=== PATIENT | female | born 1945 | race Caucasian/White ===

== ENCOUNTER 2024-01-13 20:34 | Inpatient (IN) | payer MEDICARE, OTHER, SELFPAY ==
[2024-01-13] VITALS (23 sets, daily range): BP systolic 51–140; BP diastolic 37–99; BMI 30.1
[2024-01-13 17:10] LABS: % Basophils 0.6 % (0-2); % Eosinophils 1.8 % (0-6); % Immature Granulocytes 0.3 % (0-0.5); % Lymphocytes 15.4 % (20.5-51.1); % Neutrophils 74.9 % (42.2-75.2); Absolute Basophils 0.1 10^3/uL (0-0.2); Absolute Eosinophils 0.2 10^3/uL (0-0.7); Absolute Monocytes 0.9 10^3/uL (0.1-0.6); Absolute Neutrophils 9.7 10^3/uL (1.4-6.5); Hematocrit 44.6 % (37.0-47.0); Hemoglobin 14.8 g/dL (12.0-16.0); Mean Corp Hgb Conc. 33.2 g/dL (33.0-37.0); Mean Corpuscular Hgb 30.1 pg (27.0-31.0); Mean Corpuscular Volume 90.8 fL (81.0-99.0); Mean Platelet Volume 9.3 fL (7.4-10.4); Nucleated Red Blood Cells % 0 %; Platelet Count 287 10^3/uL (130-400); Red Blood Cell Count 4.91 10^6/uL (4.20-5.40); Red Cell Dist. Width 12.4 % (11.5-14.5)
--- NOTE | 2024-01-13 17:10 | ED.GENMED ---
History of Present Illness
<CARY Love Jr. Last Filed: 01/13/24 20:36>
General
Chief Complaint: Weakness
Source: patient and family
Exam Limitations: none
Time Seen by Provider: 01/13/24 16:27
Nursing documentation reviewed up to this point in time: agreed with
History of Present Illness
History of Present Illness:
78-year-old female past Parkinson's seizures stroke paroxysmal A-fib, CHF presenting to the emergency department today with concerns of fatigue generalized weakness worsening over the past week but specifically worsening over the past day or so also
had some chills today and a cold sweat denies any specific fevers. Apparently was around someone who had COVID 1 week ago as well. Denies any significant upper respiratory symptoms did have some phlegm but she claims that this is chronic for her.
Past History
<CARY Love Jr. Last Filed: 01/13/24 20:36>
Past History
ED Past Medical History: Arrthythmia, HTN, Other (non-compliance w/ med- took another person's thyroid med), Other ('Parkinson's') and Other (Seizure D/O)
ED Past Surgical History: Cardiac (R carotid endarterectomy, mitral valve replacement) and Gynecological
Social History
Tobacco: Non-smoker
Alcohol: None
Drug: None
Personal:
Living: with family
Employment: Employed
Family History
Family History: Other (reviewed and non-contributory)
Review of Systems
<CARY Love Jr. Last Filed: 01/13/24 20:36>
Review of Systems
Allergies reviewed?: Yes
All Other Systems: ROS reviewed and negative except as documented in HPI and ROS
Phy Exam
<CARY Love Jr. Last Filed: 01/13/24 20:36>
Physical Exam
Physical Exam:
GENERAL: Alert , in no apparent distress
EYE: pupils equal and reactive
NECK: Supple, no significant adenopathy.
ENT: o/p clr, mmm.
CARDIAC: Tachycardic rate irregular rhythm irregularly irregular
LUNGS: Clear breath sounds bilaterally, no acute respiratory distress, no wheezes/rales/rhonchi
ABDOMEN: Soft, without focal tenderness, no r/g, no cvat
NEUROLOGICAL: Alert and oriented, no focal neuro deficits
SKIN: Warm and dry, skin intact.
MUSCULOSKELETAL: No edema, well perfused.
PSYCH: Normal and appropriate interaction.
Course
<Filippo Nice Jr., CARY - Last Filed: 01/13/24 20:36>
Orders/Labs/Results
Orders:
Orders
01/13/24 16:14
ECG [Electrocardiogram (*1)] Urgent
Reason for Study: Tachycardia
EKG- Treatment ONCE
01/13/24 16:43
Levetiracetam Injectable [Keppra] 3,000 mg .ROUTE .STK-MED ONE
01/13/24 16:54
Cardiac Monitoring- Treatment ONCE
0.9% Sodium Chloride 250 ml [Nss] 250 ml IV BOLUS
CR Chest Portable - 1 View Urgent
Comment:
Reason For Exam: palps fever cough
Reason Study Needs to be Portable: Patient Unstable
01/13/24 16:59
Complete Blood Count/With Diff Urgent
Comprehensive Metabolic Panel Urgent
Magnesium Urgent
NT-proBNP Urgent
TSH Urgent
Troponin I Urgent
01/13/24 17:37
Propofol [Diprivan] 20 ml .ROUTE .STK-MED
01/13/24 18:36
COVID-19 Antigen Urgent
Source: Nasal Swab
Urinalysis Reflex To Culture Urgent
Date Specimen was Collected: 01/13/24
Time Specimen was Collected: 18:32
Urine Microscopic Reflex Cult Urgent
Influenza A+B Rapid Molecular Urgent
VERONICA Source: Nasal Swab
Specimen Description:
Urine Culture Urgent
VERONICA Source: U
Specimen Description:
Date Specimen was Collected: 01/13/24
Time Specimen was Collected: 18:32
01/13/24 19:07
Metoprolol [Lopressor] 5 mg IV NOW STA
01/13/24 20:18
Amiodarone [Cordarone] 150 mg Dextrose 5%/Water 100 ml [D5w] 100 ml IV NOW
01/13/24 20:20
Admit/Transfer Patient As Directed
Co-Sign Provider:
Level of Care: Inpatient admission
Assign to:: IMU- Intermediate Care
Physician / Group: htay
Diagnosis: fast AF, MARCELA, Hypokalemia , Hypotension
Reason for Hospitalization: fast AF, MARCELA, Hypokalemia , Hypotension
Expected length of stay greater than two midnights?: Yes
ELOS- Estimated Length of Stay in days: 5
I certify the patient meets the requirements for IP care: Yes
01/13/24 20:25
Code Status As Directed
Resuscitation Status: Full Code
01/13/24 20:30
Amiodarone [Cordarone] 900 mg DEXTROSE 5% PVC-free BAG [D5W PVC-free BAG] 500 ml IV PER PROTOCOL
Initial Dose in mg/min:: 1
Duration of initial dose (hours):: 6
Subsequent dose in mg/min:: 0.5
Duration of subsequent dose (hours):: 18
Maximum dose in mg/min:: 1
Hold and notify provider if:: Heart rate < 60 BPM or SBP < 90 mmHg or MAP < 60 mmHg
01/14/24 08:00
Potassium Citrate [Urocit-K] 20 meq PO DAILY
Abnormal Lab Results
01/13/24 01/13/24
16:59 18:36
WBC 13.0 H 10^3/uL
(4.8-10.8)
Absolute Neuts (auto) 9.7 H 10^3/uL
(1.4-6.5)
Absolute Monos (auto) 0.9 H 10^3/uL
(0.1-0.6)
Lymphocytes % 15.4 L %
(20.5-51.1)
Potassium 3.2 L mmol/L
(3.5-5.1)
Chloride 82 L mmol/L
(98-107)
Carbon Dioxide 35 H mmol/L
(22-30)
BUN 44 H mg/dl
(7-17)
Creatinine 1.3 H mg/dL
(0.6-1.0)
Glucose 137 H mg/dl
(70-99)
Calcium 10.6 H mg/dl
(8.4-10.2)
Total Protein 8.5 H g/dl
(6.3-8.2)
Albumin 5.2 H g/dl
(3.5-5.0)
Urine Ketones Trace A
(Negative)
Ur Occult Blood Reflex 1+ A
(Negative)
Urine Bilirubin 1+ A
(Negative)
Leukocyte Esterase Rfl 2+ A
(Negative)
01/13/24 16:59
01/13/24 16:59
Vital Signs
Initial and Last Documented VS:
Initial Vital Signs
Temp Pulse Resp BP Pulse Ox
97.8 F 148 20 95/62 93
01/13/24 16:10 01/13/24 16:10 01/13/24 16:10 01/13/24 16:10 01/13/24 16:10
Last Documented Vital Signs
Temp Pulse Resp BP Pulse Ox
97.9 F 147 17 97/78 96
01/13/24 18:55 01/13/24 18:40 01/13/24 18:40 01/13/24 18:40 01/13/24 18:40
<Drew Pancho Cardenas, DO - Last Filed: 01/13/24 19:00>
Orders/Labs/Results
Orders:
Orders
01/13/24 16:14
ECG [Electrocardiogram (*1)] Urgent
Reason for Study: Tachycardia
EKG- Treatment ONCE
01/13/24 16:43
Levetiracetam Injectable [Keppra] 3,000 mg .ROUTE .STK-MED ONE
01/13/24 16:54
Cardiac Monitoring- Treatment ONCE
0.9% Sodium Chloride 250 ml [Nss] 250 ml IV BOLUS
CR Chest Portable - 1 View Urgent
Comment:
Reason For Exam: palps fever cough
Reason Study Needs to be Portable: Patient Unstable
01/13/24 16:59
Complete Blood Count/With Diff Urgent
Comprehensive Metabolic Panel Urgent
Magnesium Urgent
NT-proBNP Urgent
TSH Urgent
Troponin I Urgent
01/13/24 17:37
Propofol [Diprivan] 20 ml .ROUTE .STK-MED
01/13/24 18:36
COVID-19 Antigen Urgent
Source: Nasal Swab
Urinalysis Reflex To Culture Urgent
Date Specimen was Collected: 01/13/24
Time Specimen was Collected: 18:32
Urine Microscopic Reflex Cult Urgent
Influenza A+B Rapid Molecular Urgent
VERONICA Source: Nasal Swab
Specimen Description:
Urine Culture Urgent
VERONICA Source: U
Specimen Description:
Date Specimen was Collected: 01/13/24
Time Specimen was Collected: 18:32
01/13/24 19:07
Metoprolol [Lopressor] 5 mg IV NOW STA
01/13/24 20:18
Amiodarone [Cordarone] 150 mg Dextrose 5%/Water 100 ml [D5w] 100 ml IV NOW
01/13/24 20:20
Admit/Transfer Patient As Directed
Co-Sign Provider:
Level of Care: Inpatient admission
Assign to:: IMU- Intermediate Care
Physician / Group: htay
Diagnosis: fast AF, MARCELA, Hypokalemia , Hypotension
Reason for Hospitalization: fast AF, MARCELA, Hypokalemia , Hypotension
Expected length of stay greater than two midnights?: Yes
ELOS- Estimated Length of Stay in days: 5
I certify the patient meets the requirements for IP care: Yes
01/13/24 20:25
Code Status As Directed
Resuscitation Status: Full Code
01/13/24 20:30
Amiodarone [Cordarone] 900 mg DEXTROSE 5% PVC-free BAG [D5W PVC-free BAG] 500 ml IV PER PROTOCOL
Initial Dose in mg/min:: 1
Duration of initial dose (hours):: 6
Subsequent dose in mg/min:: 0.5
Duration of subsequent dose (hours):: 18
Maximum dose in mg/min:: 1
Hold and notify provider if:: Heart rate < 60 BPM or SBP < 90 mmHg or MAP < 60 mmHg
01/14/24 08:00
Potassium Citrate [Urocit-K] 20 meq PO DAILY
Abnormal Lab Results
01/13/24 01/13/24
16:59 18:36
WBC 13.0 H 10^3/uL
(4.8-10.8)
Absolute Neuts (auto) 9.7 H 10^3/uL
(1.4-6.5)
Absolute Monos (auto) 0.9 H 10^3/uL
(0.1-0.6)
Lymphocytes % 15.4 L %
(20.5-51.1)
Potassium 3.2 L mmol/L
(3.5-5.1)
Chloride 82 L mmol/L
(98-107)
Carbon Dioxide 35 H mmol/L
(22-30)
BUN 44 H mg/dl
(7-17)
Creatinine 1.3 H mg/dL
(0.6-1.0)
Glucose 137 H mg/dl
(70-99)
Calcium 10.6 H mg/dl
(8.4-10.2)
Total Protein 8.5 H g/dl
(6.3-8.2)
Albumin 5.2 H g/dl
(3.5-5.0)
Urine Ketones Trace A
(Negative)
Ur Occult Blood Reflex 1+ A
(Negative)
Urine Bilirubin 1+ A
(Negative)
Leukocyte Esterase Rfl 2+ A
(Negative)
01/13/24 16:59
01/13/24 16:59
Vital Signs
Initial and Last Documented VS:
Initial Vital Signs
Temp Pulse Resp BP Pulse Ox
97.8 F 148 20 95/62 93
01/13/24 16:10 01/13/24 16:10 01/13/24 16:10 01/13/24 16:10 01/13/24 16:10
Last Documented Vital Signs
Temp Pulse Resp BP Pulse Ox
97.9 F 147 17 97/78 96
01/13/24 18:55 01/13/24 18:40 01/13/24 18:40 01/13/24 18:40 01/13/24 18:40
Procedures
<Filippo Nice Jr., PA-C - Last Filed: 01/13/24 20:36>
Cardioversion
Indication:: Afib
Performed by:: Myself Dr. Sagastume
Synchronized?: Yes
Energy Used: 200 joules
Number of attempts: 2
Successful?: No
Complications: none
ASA Risk Score: Class III
Any reaction or bad outcome to prior sedation/anesthesia?: No history of a reaction
Sedation level to be attained: moderate
Chart and allergies reviewed: Yes
Patient reassessed prior to sedation: Yes
Time out completed at (validating right patient & procedure): 18:14
History of difficult intubation: No
Airway free of obstruction: Yes
Patient has a gag reflex: Yes
Patient is able to open mouth: Yes
Patient has no dentures: Yes
Patient has no loose teeth: Yes
Medication administered by Provider during Moderate Sedation: IV Propofol (mg)
Total dose administered: 30
Time drug administered: 18:15
Start Time: 18:14
Stop Time: 18:25
<Filippo Nice Jr., PA-C - Last Filed: 01/13/24 20:36>
MDM/Problems Addressed
MDM/Problems Addressed:
78-year-old female presenting to the emergency department today with concerns of fatigue generalized weakness tachycardia intermittent over the past few days but specifically worsened today. Patient found to be A-fib with RVR. Blood pressure
slightly low but she claims to have chronically low blood pressure heart rate in the 130s to 150s. Afebrile speaking full sentences in no obvious distress. No signs of clinical fluid overload was given some fluids here. Heart rate still
significantly elevated blood pressure still in the 90s systolic considering this cardioversion was attempted to attempt to 200 J without lasting conversion. Initial shock had a brief interruption of the A-fib but quickly went back into atrial
fibrillation within a few seconds. Otherwise here labs showing slightly low potassium of 3.2 low chloride of 82 elevated BUN to creatinine potentially consistent with dehydration was given fluids here felt well throughout ER stay BNP was elevated
to 3000 concern the patient's soft blood pressure and continuous elevation of heart rate Case discussed with cardiology recommending amiodarone. Started on bolus which was given slowly for blood pressure protection and drip started patient admitted
for further monitoring.
<Filippo Nice Jr., PA-C - Last Filed: 01/13/24 20:36>
*Critical Care Note
Total Time (30-74mins, 75-104mins- exclusive of procedures): Not Applicable
ED Attending Note
<Filippo Nice Jr., PA-C - Last Filed: 01/13/24 20:36>
-
Portions of this chart may have been created with voice recognition software.� Occasional wrong word or��sound alike� substitutions may have occurred due to the inherent limitations of voice recognition software.
<Drew Cardenas DO - Last Filed: 01/13/24 19:00>
ED Attending Note
Patient seen and examined by attending physician: Yes
I performed the substantive portion of visit, reviewed & personally made and approve the management plan that is documented in note by myself or NAHUM.: Yes
I performed a history and physical exam of patient and discussed management with resident, I reviewed resident's note and agree with documented findings and plan of care.: Yes
ED Attending Note:
I evaluated the patient at bedside. The patient is found to be in recurrence of rapid atrial fibrillation. We attempted 200 J and cardioversion twice without success. After the first attempted cardioversion, she did have a junctional rhythm with
rates in the 30s for only about 10 seconds but then went back into rapid A-fib.
Discharge Plan
Departure
Patient Disposition: Admit
Date of Disposition: 01/13/24
Time of Disposition: 20:34
Admit to: Med/Surg
Admit to doctor: Sidneyy
Presentation/result/management discussed w/ accepting MD/DO: Hospitalist
Patient with high blood pressure during this ER visit?: No
Condition: Good
Covid-19: Not Applicable
Discharge Problem:
Atrial fibrillation with RVR
Prescriptions:
No Action
clonazepam 1 MG tablet
2 mg PO HS
omeprazole 40 MG capsule,delayed release(DR/EC)
40 mg PO DAILY@1200
paroxetine HCl 30 MG tablet
30 mg PO DAILY
levothyroxine 112 MCG tablet
112 mcg PO DAILY
oxycodone 5 MG tablet
5 mg PO TID
levocetirizine [Xyzal] 5 MG tablet
5 mg PO DAILY
gabapentin 300 MG/6 ML solution
300 mg PO TID
ascorbic acid (vitamin C) 500 MG capsule
500 mg PO DAILY
L.acidoph, paracasei,B. lactis 1 EACH capsule
250 mg PO DAILY
potassium chloride 20 MEQ tablet,ER particles/crystals
40 meq PO [id number]
Patient Comments:
12/07/22--increased to 40meq bid for 3 days then deceaase there after to 20meq daily
atorvastatin 20 mg tablet
20 mg PO Q48H
torsemide 20 mg Tablet
40 mg PO BID
clonazepam 1 mg Tablet
1 mg PO QPMPRN PRN (Reason: leg pains)
ergocalciferol (vitamin D2) 1,250 mcg (50,000 unit) Capsule
1,250 mcg PO WESA
carbidopa-levodopa 25-100 mg tablet
2 tab PO QID
ropinirole 2 mg tablet extended release 24 hr
2 mg PO BID
Eliquis 5 MG tablet
5 mg PO BID
Rx Instructions:
Restart tonight 08/19
nitrofurantoin monohyd/m-cryst [Macrobid] 100 mg capsule
100 mg PO Q12H 7 Days Qty: 14 0RF
Referrals:
Yessica Martin CRNP [Family Provider] -
Interventions
Interventions:
*Risk Screen - Suicide Last Done: 01/13/24 16:10
*General Assessment Last Done: 01/13/24 16:10
*Neglect/Abuse Screening Last Done: 01/13/24 16:10
ED- Fall Risk Assessment Last Done: 01/13/24 18:31
ED- Cardiac Assessment Last Done: 01/13/24 18:31
ED- Neurological Assessment Last Done: 01/13/24 18:31
ED- Pulmonary Assessment Last Done: 01/13/24 18:31
Discharge Date and Time
Print Language: ANGOLAN
[2024-01-13 17:27] LABS: ALT (SGPT) < 10 U/L (0-35); AST (SGOT) 21 U/L (14-36); Albumin 5.2 g/dl (3.5-5.0); Alkaline Phosphatase 107 U/L (38-126); Blood Urea Nitrogen 44 mg/dl (7-17); Calcium 10.6 mg/dl (8.4-10.2); Carbon Dioxide 35 mmol/L (22-30); Chloride 82 mmol/L (98-107); Glucose 137 mg/dl (70-99); Magnesium 2.1 mg/dl (1.6-2.3); Potassium 3.2 mmol/L (3.5-5.1); Sodium 135 mmol/L (135-145); Total Bilirubin 0.8 mg/dl (0.2-1.3); Total Protein 8.5 g/dl (6.3-8.2); eGFR 42.35
[2024-01-13 17:38] LABS: NT-proBNP 3220 pg/ml; Troponin I < 0.012 ng/ml
[2024-01-13 18:04] LABS: TSH 1.66 uIU/ml (0.47-4.68)
[2024-01-13 18:47] LABS: Urine Albumin Trace (Neg - Trace); Urine Bilirubin 1+ (Negative); Urine Character Slightly Cloudy (Clear); Urine Color Yellow; Urine Glucose Negative (Negative); Urine Ketone Trace (Negative); Urine Leukocyte 2+ (Negative); Urine Nitrite Negative (Negative); Urine Occult Blood 1+ (Negative); Urine Urobilinogen Negative (Neg - 1+)
[2024-01-13 18:57] LABS: COVID-19 Antigen Negative (Negative)
[2024-01-13 19:08] LABS: Urine Red Blood Cell 0-2 /HPF (0-2)
[2024-01-13] MEDS: LOPRESSOR 5 MG IV (19:21)
--- NOTE | 2024-01-13 19:29 | CON.CAR ---
Addendum entered and electronically signed by Richard Goodson MD 01/13/24 19:57:
Patient with lower pressures after administration of Lopressor 5 mg IV. Blood pressure will limit using enough metoprolol to adequately control heart rates.
Discussed with ER who will initiate IV amiodarone bolus followed by drip.
Also patient has a previous history of left subclavian stenosis based on a prior head and neck CTA. Reviewed with the ER who will check bilateral arm pressures to see if there is a significant discrepancy. If there is significant left subclavian
stenosis then would recommend checking blood pressures right arm.
Original Note:
Consultation
Consultation Request
Date/Time Consultation Requested: 01/13/2024 at 645
Date/Time Consultation Performed: 01/13/2024 6:45 PM
Requesting Provider: Emergency department
Performing Provider: Dr. Goodson
Reason for Consultation: A-fib with RVR
Medical History
-
History of Present Illness:
78-year-old woman with a history of atrial fibrillation, prior A-fib ablation, bioprosthetic mitral valve replacement, Parkinson's disease, chronic heart failure with preserved ejection fraction, COPD, carotid artery disease, allergy to Cardizem
(angioedema) who presents with fatigue and elevated heart rate and was noted to have A-fib with RVR. Patient has not been feeling well for the last 3 days tired and fatigued intermittently yesterday they noticed elevated heart rates and then that
was more of a persistent issue when her heart rate was checked today. She says today when she went to walk she broke out in a sweat. No chest pain. Currently without complaints of shortness of breath lightheadedness or dizziness. No fever or
recent illness. She has a grandson that has COVID. Patient tested negative for COVID today in the emergency department.
She has been taking her anticoagulation as prescribed. Emergency department attempted cardioversion apparently on first attempt there were 4 beats of sinus rhythm but then patient appeared to go right back in A-fib and on second attempt there was
no evidence of sinus rhythm. Patient now remains in A-fib with RVR. Initially there were some lower blood pressures recorded but currently systolic blood pressure 120.
In further discussion with the patient she had been on amiodarone after surgery but then requested to go off of it just because her had been on the medication and she did not like the idea of it. However she did not have any side effects.
On review of systems she had an increase in weight of about 3 pounds felt she was retaining fluid and took a dose of metolazone 2 days ago.
Past medical history
Bioprosthetic mitral valve replacement
A-fib
A-fib ablation 05/2020
Heart failure with preserved ejection fraction
Parkinson's
Seizures hypothyroidism GERD COPD
Carotid artery disease and right CEA 2018
History of temporal arteritis
Left subclavian stenosis. Weblike stenosis proximal left subclavian 50 to 75% on previous head neck CTA 2018
Social history lives with nurse. Son is at bedside
Family history father had a cerebral aneurysm also aunts and uncles with brain aneurysms.
Allergies / Home Medications
Allergy/AdvReac Type Severity Reaction Status Date / Time
adhesive tape Allergy Rash Verified 01/13/24 16:10
aspirin Allergy Hives Verified 01/13/24 16:10
[place] Containing P Allergy Hives Verified 01/13/24 16:10
*RETIRED-04/11/12
[[place] Containing Products]
diltiazem HCl [From Cardizem] Allergy ANGIOEDEMA Verified 01/13/24 16:10
latex Allergy Rash Verified 01/13/24 16:10
oxycodone [From Percocet] Allergy Hives Verified 01/13/24 16:10
silver Allergy hives,itchi Verified 01/13/24 16:10
ng,blisters
simvastatin [From Zocor] Allergy SEVERE Verified 01/13/24 16:10
MUSCLE
CRAMPING
Sulfa (Sulfonamide Allergy hives,itching, Verified 01/13/24 16:10
Antibiotics) blisters
�Medication �Instructions �Recorded �Confirmed �Type
L.acidoph, paracasei,B. lactis 10 250 mg PO DAILY Supplement 08/19/20 12/07/22 History
billion cell capsule
ascorbic acid (vitamin C) 500 mg 500 mg PO DAILY Supplement 08/19/20 12/07/22 History
capsule
clonazepam 1 mg tablet 2 mg PO HS Mental Health/Anxiety 08/19/20 12/07/22 History
gabapentin 300 mg/6 mL (6 mL) oral 300 mg PO TID Neurological 08/19/20 12/07/22 History
solution Condition
levocetirizine 5 mg tablet (Xyzal) 5 mg PO DAILY Allergies 08/19/20 12/07/22 History
levothyroxine 112 mcg tablet 112 mcg PO DAILY Thyroid 08/19/20 12/07/22 History
omeprazole 40 mg capsule,delayed 40 mg PO DAILY@1200 08/19/20 12/07/22 History
release Gastrointestinal issue
oxycodone 5 mg tablet 5 mg PO TID Pain 08/19/20 12/07/22 History
paroxetine HCl 30 mg tablet 30 mg PO DAILY Depression 08/19/20 12/07/22 History
potassium chloride 20 mEq 40 meq PO [id number] Electrolyte 11/26/20 12/07/22 History
tablet,extended release(part/cryst) Repletion
apixaban 5 mg tablet (Eliquis) 5 mg PO BID Blood clot 12/07/22 12/07/22 History
prevention/tx
atorvastatin 20 mg tablet 20 mg PO Q48H High cholesterol 12/07/22 12/07/22 History
carbidopa 25 mg-levodopa 100 mg 2 tab PO QID Neurological Condition 12/07/22 12/07/22 History
tablet
clonazepam 1 mg tablet 1 mg PO QPMPRN PRN leg pains 12/07/22 12/07/22 History
ergocalciferol (vitamin D2) 1,250 1,250 mcg PO WESA Supplement 12/07/22 12/07/22 History
mcg (50,000 unit) capsule
ropinirole 2 mg tablet,extended 2 mg PO BID Neurological Condition 12/07/22 12/07/22 History
release 24 hr
torsemide 20 mg tablet 40 mg PO BID Fluid 12/07/22 12/07/22 History
retention/Swelling
nitrofurantoin 100 mg PO Q12H 7 days #14 caps 02/18/23 Rx
monohydrate/macrocrystals 100 mg
capsule (Macrobid)
Review of Systems
-
All other systems: Negative unless noted
Physical Exam
Vital Signs
Temp Pulse Resp BP Pulse Ox
97.9 F 147 17 97/78 96
01/13/24 18:55 01/13/24 18:40 01/13/24 18:40 01/13/24 18:40 01/13/24 18:40
Lab Results
01/13/24 16:59
01/13/24 16:59
Troponin I < 0.012 ng/ml 01/13/24 16:59
Nxq-[id number]-Fcfdjbwdqle Pept 3220 pg/ml 01/13/24 16:59
Physical Exam
General: Well Developed and Well Nourished
HEENT: Normocephalic and Anicteric
Respiratory: Other (No wheezes or rhonchi)
Cardiac: Other (Tachycardic and irregular)
GI: Soft, Non Tender and Other (Mildly distended no mass detected positive bowel sounds)
Musculoskeletal: No Clubbing
Skin: Warm and Rash
Neuro: Awake, Alert, Oriented and Other (Parkinson's)
Hematologic/Lymphatic: No Lymphadenopathy
Psych: Calm
Impression / Plan
-
A-fib with RVR.
-Prior history of A-fib including ablation in 2019
-Cannot take IV Cardizem due to history of angioedema
-Consistently taking anticoagulation
-Failed attempt at cardioversion in ER.
-Continue anticoagulation with Eliquis
-Give IV Lopressor for additional heart rate control. If blood pressure tolerates then can use oral metoprolol.
-If blood pressure limits use of metoprolol then would use IV amiodarone.
-Update echo this admission
Heart failure with preserved ejection fraction
-patient recently had weight gain and took additional metolazone. This may be cause for rising creatinine.
-Check chest x-ray
-Monitor weights
Mechanical MVR. Stable by last echo. Reassess with echo.
.
MARCELA. Creatinine 1.3. Recently had increased diuresis with the addition of metolazone.
-Monitor with treatment noted above
Fatigue. May be related to development of A-fib. Unclear if something else had developed causing her to be symptomatic prior to development of A-fib. Will defer to hospitalist regarding evaluation for other causes of fatigue.
-Rule out UTI
.
Parkinson's disease. Continue outpatient treatment.
Echo 12/21/2022
Technically difficult study - Definity recommended for future studies.
Normal left ventricular size, wall thickness and systolic function.
Bioprosthetic mitral valve.The peak/mean gradients across the valve are 22/8
mmHg.No mitral regurgitation.
Trace tricuspid regurgitation.
Estimated pulmonary artery pressure of 24 mmHg
Compared to prior study of. 12/16/21 no significant change
Data Reviewed
-
EKG: Report Reviewed by me
CT Scan: Report Reviewed by me
MRI: Report Reviewed by me
Medical Tests (Nuc Med, Echo etc): Report Reviewed by me
--- NOTE | 2024-01-13 20:14 | HPS.HSE ---
Addendum entered and electronically signed by Errol Figueroa MD 01/14/24 12:53:
HCT
No acute intracranial abnormality.
Addendum entered and electronically signed by Errol Figueroa MD 01/13/24 23:24:
At ER:
Following Amiodarone bolus transiently unresponsive. No abnormal movements witnessed
SBP was as low as 60 per ER AP
- Non focal exam
- Then spontaneously returned to normal base line MS
Suspect vasovagal syncope due to hypotension
- Holding Amiodarone gtt for now
- To consider IV Dig if necessary
- cont IMU level
- HCT to complete w/u
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
Original Note:
Family Physician
-
Family Physician: Yessica Martin
Chief Complaint
-
fatigue and weakness
History of Present Illness
78F HX HFpEF, Chr AF, HX successful CV, Bioprosthetic mitral valve, hyperthroid seen atER for evaluation of fatigue and genaralized weakness; Noted racing HR.
Medical History
Past Medical History
Past Medical History: Reports Arrhythmia (Chr AF ), CHF (HFpEF ), CVA, HTN, Hypercholesterolemia, Hypothyroidism, Seizures, Psychiatric (depression / anxiety ) and Other (parkinson dz )
Past Surgical History: Reports Other
Additional Past Surgical History:
R carotid endarterectomy, Bioprosthetic mitral valve replacement)
Social History
Tobacco: Non-smoker
Alcohol: None
Drug: None
Personal:
Living: With Family
Family History
Family History: Not pertinent
Allergies / Home Medications
Allergies reflects when Allergies were last updated in [facility].
Home Medications with original date entered in [facility]
Allergy/Medication List:
Allergies
Allergy/AdvReac Type Severity Reaction Status Date / Time
adhesive tape Allergy Rash Verified 01/13/24 16:10
aspirin Allergy Hives Verified 01/13/24 16:10
[place] Containing P Allergy Hives Verified 01/13/24 16:10
*RETIRED-04/11/12
[[place] Containing Products]
diltiazem HCl [From Cardizem] Allergy ANGIOEDEMA Verified 01/13/24 16:10
latex Allergy Rash Verified 01/13/24 16:10
oxycodone [From Percocet] Allergy Hives Verified 01/13/24 16:10
silver Allergy hives,itchi Verified 01/13/24 16:10
ng,blisters
simvastatin [From Zocor] Allergy SEVERE Verified 01/13/24 16:10
MUSCLE
CRAMPING
Sulfa (Sulfonamide Allergy hives,itching, Verified 01/13/24 16:10
Antibiotics) blisters
Home Medications
L.acidoph, paracasei,B. lactis 10 billion cell capsule 250 mg PO DAILY Supplement 08/19/20
ascorbic acid (vitamin C) 500 mg capsule 500 mg PO DAILY Supplement 08/19/20
clonazepam 1 mg tablet 2 mg PO HS Mental Health/Anxiety 08/19/20
gabapentin 300 mg/6 mL (6 mL) oral solution 300 mg PO TID Neurological Condition 08/19/20
levocetirizine 5 mg tablet (Xyzal) 5 mg PO DAILY Allergies 08/19/20
levothyroxine 112 mcg tablet 112 mcg PO DAILY Thyroid 08/19/20
omeprazole 40 mg capsule,delayed release 40 mg PO DAILY@1200 Gastrointestinal issue 08/19/20
oxycodone 5 mg tablet 5 mg PO TID Pain 08/19/20
paroxetine HCl 30 mg tablet 30 mg PO DAILY Depression 08/19/20
potassium chloride 20 mEq tablet,extended release(part/cryst) 40 meq PO [id number] Electrolyte Repletion 11/26/20
apixaban 5 mg tablet (Eliquis) 5 mg PO BID Blood clot prevention/tx 12/07/22
atorvastatin 20 mg tablet 20 mg PO Q48H High cholesterol 12/07/22
carbidopa 25 mg-levodopa 100 mg tablet 2 tab PO QID Neurological Condition 12/07/22
clonazepam 1 mg tablet 1 mg PO QPMPRN PRN leg pains 12/07/22
ergocalciferol (vitamin D2) 1,250 mcg (50,000 unit) capsule 1,250 mcg PO WESA Supplement 12/07/22
ropinirole 2 mg tablet,extended release 24 hr 2 mg PO BID Neurological Condition 12/07/22
torsemide 20 mg tablet 40 mg PO BID Fluid retention/Swelling 12/07/22
nitrofurantoin monohydrate/macrocrystals 100 mg capsule (Macrobid) 100 mg PO Q12H 7 days #14 caps 02/18/23
Review of Systems
-
Constitutional: Reports Weight Loss and Fatigue
EENT: Reports No Symptoms
Respiratory: Reports No Symptoms
Cardiac: Reports Palpitations
Abdomen/GI: Reports No Symptoms
: Reports No Symptoms
Musculoskeletal: Reports No Symptoms
Skin: Reports No Symptoms
Neurological: Reports No Symptoms
Endocrine: Reports No Symptoms
Hematologic/Lymphatic: Reports No Symptoms
Psych: Reports No Symptoms
Physical Exam
Vital Signs
Vital Signs
Temp Pulse Resp BP Pulse Ox
97.9 F 147 17 97/78 96
01/13/24 18:55 01/13/24 18:40 01/13/24 18:40 01/13/24 18:40 01/13/24 18:40
Physical Exam
General: Well Nourished, No Apparent Distress, Comfortable, Conversant and Other (flat facial expression )
HEENT: NormoCephalic, Anicteric and Moist mucous membranes
Respiratory: Clear; No Wheezes, Rales or Rhonchi
Cardiac: S1/S2, Irregular Rhythm and Tachycardia; No JVD
Breast: Deferred by me
GI: Soft, Non Tender, Non Distended and Normal Bowel Sounds
Rectal: Deferred by Provider
Genito-urinary: Deferred by me
Musculoskeletal: No Edema
Skin: Warm and Dry
Neuro: AO x 3
Psych: Calm
Laboratory Results
-
01/13/24 16:59
01/13/24 16:59
Laboratory Results
Total Bilirubin 0.8 mg/dl (0.2-1.3) 01/13/24 16:59
AST 21 U/L (14-36) 01/13/24 16:59
ALT < 10 U/L (0-35) 01/13/24 16:59
Alkaline Phosphatase 107 U/L (38-126) 01/13/24 16:59
Troponin I < 0.012 ng/ml 01/13/24 16:59
Data Reviewed
-
Medical Tests (Nuc Med, Echo, EKG etc): Report Reviewed by me
Lab Data: Labs Reviewed by me
Old Records: Reviewed
Impression/Plan
-
Data
WCC 13
K 3.2
CO2 35
BUN 44
Cr 1.3 - was 0.9 on 01/28/23
NEG TPNI
pBNP 3220 - baseline is 500s to 700s
NEG Covid
12/21/22 ECHO
Technically difficult study - Definity recommended for future studies.
Normal left ventricular size, wall thickness and systolic function.
Bioprosthetic mitral valve.The peak/mean gradients across the valve are 22/8
mmHg.No mitral regurgitation.
Trace tricuspid regurgitation.
Estimated pulmonary artery pressure of 24 mmHg
Compared to prior study of. 12/16/21 no significant change
Last hospitalist admission: 11/09/20 - 11/15/20
P Dxs: acute HFpEF , Persistent AF
ASSESSMENT & PLAN
Pending Rx reconciliation
Fast AF ; Hypotensive with IV Metoprolol 5 mg x1
HX Prx AF since Bioprosthetic mitral valve suregery
Essential HTN; currently hypotensive
- HX successful CV 11/26/20
- ER initiate IV Amiodarone gtt
- on chr Eliquis
- CBC cared consult
HX HFpEF - clinically not in acute HF
Wt 91kg ( 02/18/23) ----> 84.5 kg ( 01/13/24)
- loosing wt
- held Torsemide and held spironolactone
- daily Wt
- await Card eval in AM
MARCELA - cardiorenal syndrome vs. volume depletion
chr alkalosis - contraction alkalosis due to dehydration
Hypokalemia
- held torsemide
- Trend BMP in AM
- await Card evaluation
Hypokalemia
- KCL PO 20 x1 at ER
HX Bioprosthetic mitral valve.
ECHO as above : The peak/mean gradients across the valve are 22/8 mmHg. No mitral regurgitatio
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
11/03/18-CEA for Rt RG
- on Apixaban
- Atorvastatin
Hypothyroid
- TSH
- on LT4
HLD
- on Atorvastatin
Parkinson dz
- on Sinemet
- on Ropinirole
Remote HX Sz - Sz free for past 22 years
HX recurrent UTI
- on prophylaxis Macrobid
Depression/ Anxiety
- 0n chr clonazepam
- on Paroxetine
Chr narcotic dependant pain syndrome
- on Gabapentin 300mg tid
- on Oxycodone 5mg tid
Fatigue and weakness
Reports Contact exposure with Covid
- Neg Covid upon admission
DVT Px: chr Eliquis
Code: Full
IMU
[2024-01-13] MEDS: CORDARONE 103 MG IV (21:17)
[2024-01-13] MEDS: CORDARONE 518 MG IV (21:18)
[2024-01-14] VITALS (20 sets, daily range): BP systolic 80–125; BP diastolic 49–103; BMI 29.8
[2024-01-14] MEDS: REQUIP 2 MG PO ×3 (00:17→21:10)
[2024-01-14] MEDS: KLONOPIN 2 MG PO ×2 (00:18→21:10)
[2024-01-14] MEDS: ROXICODONE 5 MG PO ×3 (00:18→15:04)
[2024-01-14] MEDS: LIPITOR 20 MG PO (00:18)
[2024-01-14] MEDS: SINEMET 25-100 2 TABLET PO ×5 (00:19→21:09)
--- NOTE | 2024-01-14 03:03 | PTCARENOTE ---
Rec'd pt from ED RN with daughter at bedside. Pt AAOx3 with slow, soft speech. HR 90s, BPs soft. Pt c/o chronic pain in R knee, but denies other symptoms at this time. 97% SaO2 on 1L O2. Call pope within reach. Assessment as documented
[2024-01-14] MEDS: SYNTHROID 112 MCG PO (05:26)
[2024-01-14 05:37] LABS: Hematocrit 39.9 % (37.0-47.0); Hemoglobin 13.5 g/dL (12.0-16.0); Mean Corp Hgb Conc. 33.8 g/dL (33.0-37.0); Mean Corpuscular Hgb 30.1 pg (27.0-31.0); Mean Corpuscular Volume 88.9 fL (81.0-99.0); Mean Platelet Volume 9.1 fL (7.4-10.4); Platelet Count 251 10^3/uL (130-400); Red Blood Cell Count 4.49 10^6/uL (4.20-5.40); Red Cell Dist. Width 12.6 % (11.5-14.5); White Blood Cell Count 10.3 10^3/uL (4.8-10.8)
[2024-01-14 06:21] LABS: ALT (SGPT) < 10 U/L (0-35); AST (SGOT) 21 U/L (14-36); Albumin 4.5 g/dl (3.5-5.0); Alkaline Phosphatase 96 U/L (38-126); Blood Urea Nitrogen 43 mg/dl (7-17); Calcium 9.7 mg/dl (8.4-10.2); Carbon Dioxide 39 mmol/L (22-30); Chloride 85 mmol/L (98-107); Estimated Creatinine Clearance 57 ml/min; Glucose 124 mg/dl (70-99); HDL Cholesterol 28 mg/dl; LDL Cholesterol, Calculated 126 mg/dl; Potassium 2.6 mmol/L (3.5-5.1); Sodium 137 mmol/L (135-145); Total Bilirubin 0.9 mg/dl (0.2-1.3); Total Cholesterol 197 mg/dl (50-199); Total Protein 7.4 g/dl (6.3-8.2); Triglyceride 219 mg/dl (10-149); Very Low Density Lipoprotein 43 mg/dl (0-30); eGFR > 60.00
[2024-01-14 06:24] LABS: TSH 0.76 uIU/ml (0.47-4.68)
--- NOTE | 2024-01-14 06:29 | PTCARENOTE ---
Pt with potassium 2.6 this AM, this RN notified DIEUDONNE Mac.
[2024-01-14] MEDS: KCL 40 MEQ PO ×2 (06:35→19:19)
[2024-01-14] MEDS: PAXIL 30 MG PO (08:19)
[2024-01-14] MEDS: ELIQUIS 5 MG PO ×2 (08:19→19:19)
[2024-01-14] MEDS: KCL 260 MEQ IV (08:23)
--- NOTE | 2024-01-14 10:00 | W.PN.HOSP.TC ---
Today's Communication/Plan
-
Monitor rates in IMU
Planned for electrical cardioversion on Tuesday
See below
Assessment / Plan
Assessment / Plan
Physical Exam
General: Not in acute distress
HEENT: Normocephalic
Respiratory: Other (No wheezes or rhonchi)
Cardiac: S1 and S2. Irregular Rhythm
GI: Soft, Non Tender. Positive bowel sounds.
Skin: Warm
Neuro: Awake, Alert, Oriented and Other (Parkinson's)
Psych: Calm

CT Chest PE Study results (as per radiologist's report)
IMPRESSION:
1. No CTA evidence for an acute pulmonary thromboembolism.
2. Mild pneumonitis versus atelectasis in the right lower lobe at the lateral costophrenic sulcus.

A-fib with RVR.
History of A-Fib status post ablation in 2019
Syncope - Vasovagal/Hypotensive in the ER after Amiodarone
Allergy/Angioedema with Cardizem
History of Pleural Effusions
History of Pericardial Effusions
-Intolerant to IV Cardizem due to history of angioedema
-Failed attempt at cardioversion in ER.
-Continue anticoagulation with Eliquis
-Lopressor was stopped due to hypotension
-No Amiodarone for now, as per cardiology, patient had syncope shortly after Amiodarone was given in the ER -- suspected vasovagal, unlikely Amiodarone-induced hypotension
-In the ER, following Amiodarone bolus, patient was transiently unresponsive and hypotensive with SBP in the 60s -- but she spontaneously came back to normal
-Observe patient and allow for elevated rates through the weekend, another attempted electrical cardioversion on 01/16/24 -- discussed this with cardiology
-Update echo this admission
-CT Head showed no acute changes
Heart failure with preserved ejection fraction
-Patient recently had weight gain and took additional metolazone which could have resulted in rising creatinine.
-Monitor weights
Hypokalemia
-Possible side effect of recent Metolazone
-Replaced
-Monitor BMP and replace as needed
MARCELA - Suspected Cardiorenal Syndrome
-Recently had increased diuresis with the addition of metolazone.
-Hold home diuretics for now
-Monitor with treatment noted above
E. coli Bacteriuria
History of UTIs
-Per patient's nurse, she has bladder spasms after she urinates, but denied any UTI-related pain
-Hold any antibiotics at this time
-Monitor vital signs, white blood cell count, and for any new UTI symptoms
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
History of Left Subclavian Stenosis
-Continue Eliquis
-Does patient take statin at home?
-Check bilateral arm pressures to see if there is a significant discrepancy - if there is significant left subclavian stenosis then would recommend checking blood pressures right arm.
Mitral Regurgitation History. Mechanical MVR. Stable by last echo. Reassess with echo.
Bioprosthetic mitral valve?
Hypertension
-Holding antihypertensives due to hypotension
Hypothyroidism
-Continue home Levothyroxine
Hyperlipidemia
-Does patient take statin at home?
Fatigue. May be related to development of A-fib. Unclear if something else had developed causing her to be symptomatic prior to development of A-fib. Will defer to hospitalist regarding evaluation for other causes of fatigue.
-Rule out UTI
.
Parkinson's disease
-Continue outpatient treatment with Sinemet and Ropinirole
Remote History of Seizure - Seizure-free for past 22 years
History of recurrent UTI
- on prophylactic Macrobid
Depression/ Anxiety
- On chronic clonazepam
- On Paroxetine
Chronic narcotic dependant pain syndrome
- on Gabapentin 300mg tid
- on Oxycodone 5mg tid
Fatigue and weakness
Reports Contact exposure with Covid
- Negative Covid upon admission
History of Mass of Left Thigh
HOME MED REC
DVT PPx: Eliquis
Code: Full
Anticipated Discharge: > 48 hours
Subjective/Interval History
-
Date of Service: January 14, 2024
Patient was seen and examined. She reported feeling better than when she came in, she denied any new symptoms or complaints.
Objective Data
-
Labs:
Laboratory Results
01/14/24
05:27
WBC 10.3
Hgb 13.5
Hct 39.9
Plt Count 251
Sodium 137
Potassium 2.6 L*
Chloride 85 L
Carbon Dioxide 39 H
BUN 43 H
Creatinine 0.9
Glucose 124 H
Calcium 9.7
Total Bilirubin 0.9
AST 21
ALT < 10
Alkaline Phosphatase 96
Vital Signs:
Vital Signs
Temp Pulse Resp BP Pulse Ox
97.6 F 85 12 111/68 92
01/14/24 07:27 01/14/24 08:00 01/14/24 08:00 01/14/24 08:00 01/14/24 09:52
I&O
01/13/24 01/14/24 01/15/24
06:59 06:59 06:59
Intake Total 270 / 270
Output Total 650 / 650
Balance -650 / -650 270 / 270
--- NOTE | 2024-01-14 11:18 | PTCARENOTE ---
Patient heart rate is afib, uncontrolled at times. Blood pressure 97/61 map 73. Trace edema on lower extremities. Good appetite, abdomen round. Denying pain when asked. Oral care provided and patient washed. Chair position in bed. Very weak at this
time, fall precautions enforced.
--- NOTE | 2024-01-14 11:46 | W.PN.CD ---
Today's Communication / Plan
-
Continue to monitor rates of atrial fibrillation. No additional changes in medical therapy at this time.
Will plan for electrical cardioversion on Tuesday
Impression / Plan
-
A-fib with RVR.
-Prior history of A-fib including ablation in 2019
-Cannot take IV Cardizem due to history of angioedema
-Consistently taking anticoagulation
-Failed attempt at cardioversion in ER.
-Continue anticoagulation with Eliquis
-IV Lopressor given in ER but then systolic blood pressure was in the 90s so it was discontinued.
-Initially plan was to use IV amiodarone. Patient had an unresponsive episode 2 minutes after starting amiodarone with very brief hypotension reported which spontaneously recovered despite no intervention. Difficult to fully explain the event.
Although IV amiodarone bolus could have lowered the pressure in a patient who already had relatively low blood pressure and caused syncope. However would expect medication induced hypotension to be more persistent and not resolve so quickly without
an intervention. No evidence of an allergic reaction. Of note patient has tolerated amiodarone in the past per her report. No evidence of pee arrhythmia. Telemetry fully reviewed. Possibility of a vagal episode is also a consideration.
Patient has a history of seizures but no evidence that this was the cause either.
-Heart rate is only mildly elevated we will continue to monitor. Patient may have been volume depleted on presentation which contributed to higher rates.
-Update echo this admission
-If patient remains in A-fib then would consider another attempt at cardioversion on 01/16/2024
Heart failure with preserved ejection fraction
-patient recently had weight gain and took additional metolazone. This may be cause for rising creatinine.
-Currently stable with evident evidence of decompensated heart failure.
-Monitor weights
Mechanical MVR. Stable by last echo. Reassess with echo.
.
MARCELA. Creatinine 1.3. Now improved. Recently had increased diuresis with the addition of metolazone as an outpatient which may have contributed.
-Monitor with treatment noted above
Fatigue. Improved.
Parkinson's disease. Continue outpatient treatment.
Echo 12/21/2022
Technically difficult study - Definity recommended for future studies.
Normal left ventricular size, wall thickness and systolic function.
Bioprosthetic mitral valve.The peak/mean gradients across the valve are 22/8
mmHg.No mitral regurgitation.
Trace tricuspid regurgitation.
Estimated pulmonary artery pressure of 24 mmHg
Compared to prior study of. 12/16/21 no significant change
Physical Exam
Vital Signs/Labs
Vital Signs
Temp Pulse Resp BP Pulse Ox
97.6 F 102 18 97/61 99
01/14/24 07:27 01/14/24 11:06 01/14/24 11:06 01/14/24 11:06 01/14/24 11:06
01/13/24 01/14/24 01/15/24
06:59 06:59 06:59
Actual Weight 83.6 kg
01/14/24 05:27
01/14/24 05:27
Magnesium 2.1 mg/dl (1.6-2.3) 01/13/24 16:59
Triglycerides 219 mg/dl (10-149) H 01/14/24 05:27
LDL Cholesterol, Calc 126 mg/dl 01/14/24 05:27
VLDL Cholesterol, Calc 43 mg/dl (0-30) H 01/14/24 05:27
HDL Cholesterol 28 mg/dl 01/14/24 05:27
TSH 0.76 uIU/ml (0.47-4.68) 01/14/24 05:27
01/13/24
16:59
Qcg-Q-Nemadqhitil Pept 3220
LAB Results
01/13/24
16:59
Troponin I < 0.012
Physical Exam
Constitutional: No acute distress
Cardiovascular: Rhythm/rate is irregular
Respiratory: Wheeze Absent and Rhonchi Absent
GI: Soft and Non tender
Neuro/Psych: Alert
Data Reviewed
-
Date of Service: January 14, 2024
Medical Decision Making: Reviewed Test Results
Medical Tests (PFT, Pathology etc): Report Reviewed by me
Labs: Labs Reviewed by me
--- NOTE | 2024-01-14 12:38 | PTCARENOTE ---
Blood pressure dropped to 80/66, map 73. Patient stating that she feels tired. Dr. Goodson notified. Repeat .
--- NOTE | 2024-01-14 14:15 | CM ---
Addendum entered by Liudmila Roberson RN 01/14/24 14:28:
Noting O2 2L. Patient does not have home O2.
Plan watch for any home O2 needs.
Original Note:
Patient with Hx Parkinsons Dz with Dx A-fib with RVR, HF, hypokalemia, MARCELA. Plan CV Mon 01/15.
Met with patient and daughter Navya;
the patient resides at her daughter's 2 story home in a one story in law suite with ramp access.
The patient is independent in ADLs and mostly uses her electric w/c to the bathroom.
She holds onto furniture or uses her RW to ambulate short distances.
Patient had several falls at home about 2 months ago.
The patient has LTC insurance and has a MOTEL FOOD SERVICE SUPERVISOR 4 hrs/day 2 days/week through [employer]. The caregiver hours will be paid by the LTC insurance and increase to 40 hrs/week at the end of January, once family has paid privately for the first 90 days.
DME - RW, electric w/c, manual w/c, transport chair, Purewick external urinary catheter, reachers.
VN - prior [facility]
SNF - prior [facility]
The patient has an Intake Appt with Palliative Care on 01/23/24.
PCP - Yessica Martin
Pharmacy - [facility]
Daughter interested in [facility] referral to [facility] - agree to refer after seen by PT/OT.
Request to Dr Christiansen for PT/OT Evals.
Plan follow up after PT/OT Evals.
[2024-01-14] MEDS: NEURONTIN 300 MG PO ×2 (15:04→19:19)
[2024-01-14] MEDS: PROTONIX 40 MG PO (15:04)
[2024-01-14] MEDS: FEOSOL 325 MG PO (15:04)
[2024-01-14 16:23] LABS: Blood Urea Nitrogen 39 mg/dl (7-17); Calcium 9.7 mg/dl (8.4-10.2); Carbon Dioxide 37 mmol/L (22-30); Chloride 86 mmol/L (98-107); Estimated Creatinine Clearance 73 ml/min; Glucose 147 mg/dl (70-99); Potassium 3.2 mmol/L (3.5-5.1); Sodium 133 mmol/L (135-145); eGFR > 60.00
[2024-01-14] MEDS: KCL 20 MEQ PO ×2 (17:15→22:50)
[2024-01-14] MEDS: OCUVITE SOFTGEL 1 CAP PO (19:19)
--- NOTE | 2024-01-14 21:50 | PTCARENOTE ---
This RN found pt with O2 off with SaO2 90%, slightly forgetful and disoriented to surroundings. This RN replaced O2 with SaO2 improvement to 98%, reoriented pt. Pt knowledgeable about home meds, requests her nighttime meds early bc she is tired and
states that she wants to take xyzal, but is not agreeable to taking zyrtec bc zyrtec makes her feel 'amped up'. Remains in afib, HR sustaining 120s-130s with spikes up to 140s and PVCs. BP stable at this time. HELP DESK SUPPORT SPECIALIST notified of condition and ordered
this RN to draw 23:00 labs now.
[2024-01-14 22:17] LABS: Blood Urea Nitrogen 35 mg/dl (7-17); Calcium 9.4 mg/dl (8.4-10.2); Carbon Dioxide 37 mmol/L (22-30); Chloride 88 mmol/L (98-107); Estimated Creatinine Clearance 73 ml/min; Glucose 176 mg/dl (70-99); Potassium 3.3 mmol/L (3.5-5.1); Sodium 135 mmol/L (135-145); eGFR > 60.00
[2024-01-14] MEDS: LANOXIN 250 MCG PO (23:03)
[2024-01-15] VITALS (31 sets, daily range): BP systolic 70–143; BP diastolic 44–100; PULSE 110–152; O2SAT 95; BMI 30.1
[2024-01-15] MEDS: ZYRTEC PO (00:23)
[2024-01-15] MEDS: SYNTHROID 100 MCG PO (05:06)
[2024-01-15 06:09] LABS: % Basophils 0.6 % (0-2); % Eosinophils 3.8 % (0-6); % Immature Granulocytes 0.3 % (0-0.5); % Lymphocytes 18.9 % (20.5-51.1); % Monocytes 6.1 % (1.7-9.3); % Neutrophils 70.3 % (42.2-75.2); Absolute Basophils 0.1 10^3/uL (0-0.2); Absolute Eosinophils 0.4 10^3/uL (0-0.7); Absolute Lymphocytes 1.8 10^3/uL (1.2-3.4); Absolute Monocytes 0.6 10^3/uL (0.1-0.6); Absolute Neutrophils 6.5 10^3/uL (1.4-6.5); Hematocrit 43.3 % (37.0-47.0); Hemoglobin 13.5 g/dL (12.0-16.0); Mean Corp Hgb Conc. 31.2 g/dL (33.0-37.0); Mean Corpuscular Hgb 29.3 pg (27.0-31.0); Mean Corpuscular Volume 93.9 fL (81.0-99.0); Mean Platelet Volume 9.4 fL (7.4-10.4); Nucleated Red Blood Cells % 0 %; Platelet Count 239 10^3/uL (130-400); Red Blood Cell Count 4.61 10^6/uL (4.20-5.40); Red Cell Dist. Width 12.5 % (11.5-14.5); White Blood Cell Count 9.3 10^3/uL (4.8-10.8)
[2024-01-15 06:12] LABS: Blood Urea Nitrogen 28 mg/dl (7-17); Calcium 9.8 mg/dl (8.4-10.2); Carbon Dioxide 38 mmol/L (22-30); Chloride 91 mmol/L (98-107); Estimated Creatinine Clearance 86 ml/min; Glucose 124 mg/dl (70-99); Magnesium 2.4 mg/dl (1.6-2.3); Sodium 138 mmol/L (135-145); eGFR > 60.00
[2024-01-15] MEDS: ELIQUIS 5 MG PO ×2 (07:54→21:43)
[2024-01-15] MEDS: NEURONTIN 300 MG PO ×3 (07:54→21:44)
[2024-01-15] MEDS: PAXIL 30 MG PO (07:55)
[2024-01-15] MEDS: ROXICODONE 5 MG PO ×3 (07:55→17:45)
[2024-01-15] MEDS: REQUIP 2 MG PO ×2 (07:55→22:59)
[2024-01-15] MEDS: SINEMET 25-100 2 TABLET PO ×4 (07:56→21:44)
[2024-01-15] MEDS: UROCIT-K 20 MEQ PO (08:06)
--- NOTE | 2024-01-15 08:29 | W.PN.CD ---
Today's Communication / Plan
-
Oral amiodarone
Plan for cardioversion tomorrow
Impression / Plan
-
A-fib with RVR.
-Prior history of A-fib including ablation in 2019
-Cannot take IV Cardizem due to history of angioedema
-Consistently taking anticoagulation
-Failed attempt at cardioversion in ER.
-Continue anticoagulation with Eliquis
-IV Lopressor given in ER but then systolic blood pressure was in the 90s so it was discontinued.
-Initially plan was to use IV amiodarone. Patient had an unresponsive episode 2 minutes after starting amiodarone with very brief hypotension reported which spontaneously recovered despite no intervention. Difficult to fully explain the event.
Although IV amiodarone bolus could have lowered the pressure in a patient who already had relatively low blood pressure and caused syncope. However would expect medication induced hypotension to be more persistent and not resolve so quickly without
an intervention. No evidence of an allergic reaction. Of note patient has tolerated amiodarone in the past per her report. No evidence of pee arrhythmia. Telemetry fully reviewed. Possibility of a vagal episode is also a consideration.
Patient has a history of seizures but no evidence that this was the cause either.
-Heart rate is only mildly elevated we will continue to monitor. Patient may have been volume depleted on presentation which contributed to higher rates.
-Update echo this admission
-Since cardioversion unsuccessful in ER with reported couple beats of sinus then returned to A-fib. Would add oral amiodarone to try and hope and maintain sinus rhythm after next cardioversion
-If patient remains in A-fib then would consider another attempt at cardioversion on 01/16/2024
Heart failure with preserved ejection fraction
-patient recently had weight gain and took additional metolazone. This may be cause for rising creatinine.
-Currently stable with evident evidence of decompensated heart failure.
-Monitor weights
Mechanical MVR. Stable by last echo. Reassess with echo.
.
MARCELA. Creatinine 1.3. Now improved. Recently had increased diuresis with the addition of metolazone as an outpatient which may have contributed.
-Monitor with treatment noted above
Fatigue. Improved.
Parkinson's disease. Continue outpatient treatment.
Echo 12/21/2022
Technically difficult study - Definity recommended for future studies.
Normal left ventricular size, wall thickness and systolic function.
Bioprosthetic mitral valve.The peak/mean gradients across the valve are 22/8
mmHg.No mitral regurgitation.
Trace tricuspid regurgitation.
Estimated pulmonary artery pressure of 24 mmHg
Compared to prior study of. 12/16/21 no significant change
Physical Exam
Vital Signs/Labs
Vital Signs
Temp Pulse Resp BP Pulse Ox
97.6 F 103 23 86/77 93
01/15/24 07:40 01/15/24 06:00 01/15/24 06:00 01/15/24 06:00 01/15/24 06:00
01/14/24 01/15/24 01/16/24
06:59 06:59 06:59
Actual Weight 83.6 kg 84.6 kg
01/15/24 05:34
01/15/24 05:34
Magnesium 2.4 mg/dl (1.6-2.3) H 01/15/24 05:34
Triglycerides 219 mg/dl (10-149) H 01/14/24 05:27
LDL Cholesterol, Calc 126 mg/dl 01/14/24 05:27
VLDL Cholesterol, Calc 43 mg/dl (0-30) H 01/14/24 05:27
HDL Cholesterol 28 mg/dl 01/14/24 05:27
TSH 0.76 uIU/ml (0.47-4.68) 01/14/24 05:27
01/13/24
16:59
Ice-V-Yzhvekexjof Pept 3220
LAB Results
01/13/24
16:59
Troponin I < 0.012
Physical Exam
Constitutional: No acute distress
Cardiovascular: Rhythm & rate is regular and Rhythm/rate is irregular
Respiratory: Respiratory effort normal
GI: Soft, Non tender and Normal bowel sounds
Neuro/Psych: Alert, Oriented and AO x 3
Data Reviewed
-
Date of Service: January 15, 2024
Medical Decision Making: Reviewed Test Results
X-Ray/CT/US/MRI/NUC/PET: Report Reviewed by me
Medical Tests (PFT, Pathology etc): Report Reviewed by me
Labs: Labs Reviewed by me
[2024-01-15] MEDS: KCL 40 MEQ PO ×2 (14:01→21:44)
[2024-01-15] MEDS: OCUVITE SOFTGEL 1 CAP PO ×2 (14:01→21:44)
[2024-01-15] MEDS: VITAMIN D3 (cholecalciferol) 25 MCG PO (14:01)
--- NOTE | 2024-01-15 14:35 | PTCARENOTE ---
Addendum entered by Maite Austin RN 01/15/24 16:21:
Amiodarone has corn ingredients, allergy discussed with pharmacy and Dr. Goodson. Medication on hold at this time.
Original Note:
Patient has been in uncontrolled afib this shift. Amiodarone dose to be started this afternoon. Patient is for cardioversion tomorrow, NPO after midnight. Out of bed to chair, patient climbed out of the chair, chair alarm went off, no injury. High
risk fall protocol enforced. Pateint is constipated, bowel regimen to be started.
[2024-01-15] MEDS: PROTONIX 40 MG PO (16:05)
[2024-01-15] MEDS: SENOKOT-S 1 TABLET PO (16:05)
[2024-01-15] MEDS: FEOSOL 325 MG PO (16:05)
--- NOTE | 2024-01-15 17:18 | W.PN.HOSP.TC ---
Today's Communication/Plan
-
Amiodarone
Cardiac Cath tomorrow
Assessment / Plan
Assessment / Plan
Physical Exam
General: Not in acute distress
HEENT: Normocephalic
Respiratory: CTAB
Cardiac: S1 and S2. Irregular Rhythm
GI: Soft, Non Tender. Positive bowel sounds.
Skin: Warm
Neuro: Awake, Alert, Oriented and Other (Parkinson's)
Psych: Calm

CT Chest PE Study results (as per radiologist's report)
IMPRESSION:
1. No CTA evidence for an acute pulmonary thromboembolism.
2. Mild pneumonitis versus atelectasis in the right lower lobe at the lateral costophrenic sulcus.

A-fib with RVR.
History of A-Fib status post ablation in 2019
Allergy/Angioedema with Cardizem
History of Pleural Effusions
History of Pericardial Effusions
-Intolerant to IV Cardizem due to history of angioedema
-Failed attempt at cardioversion in ER.
-Continue anticoagulation with Eliquis
-Lopressor was stopped due to hypotension
-Oral Amiodarone started on 01/15/24
-In the ER, following Amiodarone bolus, patient was transiently unresponsive and hypotensive with SBP in the 60s -- but she spontaneously came back to normal
-Observe patient and allow for elevated rates through the weekend, another attempted electrical cardioversion on 01/16/24 -- discussed this with cardiology
-Update echo this admission
-CT Head showed no acute changes
Syncope - Vasovagal/Hypotensive in the ER after Amiodarone Bolus in the ER on day of presentation - unresponsive episode 2 minutes after starting amiodarone with very brief hypotension reported which spontaneously recovered despite no intervention.
HISTORY of Epilepsy
Remote History of Seizure - Seizure-free for past 22 years
-Spoke with patient's daughter Navya on 01/15/24 who mentioned that patient's body stiffened and eyes rolled over but other typical features of seizure were not present
-Consider neurology consult prior to discharge
Heart failure with preserved ejection fraction
-Patient recently had weight gain and took additional metolazone which could have resulted in rising creatinine.
-Monitor weights
Nocturnal Hypoxemia
-Nurse reported patient's oxygen dropped to 88% at night on room air while sleeping, therefore oxygen placed
-Patient has smoking history decades ago
-Spoke with patient's daughter Navya on 01/15/24 who mentioned that several years ago, patient saw pulmonary at [facility] at [place], [place], at that time she was told patient does nothave COPD but does have allergies
-Consider pulmonary consult/nocturnal oxygen study prior to discharge
Hypokalemia
-Possible side effect of recent Metolazone
-Replaced
-Monitor BMP and replace as needed
MARCELA - Suspected Cardiorenal Syndrome
-Recently had increased diuresis with the addition of metolazone.
-Hold home diuretics for now
-Monitor with treatment noted above
E. coli Bacteriuria
History of UTIs
-Per patient's nurse, she has bladder spasms after she urinates, but denied any UTI-related pain
-Hold any antibiotics at this time
-Monitor vital signs, white blood cell count, and for any new UTI symptoms
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
History of Left Subclavian Stenosis
-Continue Eliquis
-Does patient take statin at home?
-Check bilateral arm pressures to see if there is a significant discrepancy - if there is significant left subclavian stenosis then would recommend checking blood pressures right arm.
Mitral Regurgitation History. Mechanical MVR. Stable by last echo. Reassess with echo.
Bioprosthetic mitral valve?
Hypertension
-Holding antihypertensives due to hypotension
Hypothyroidism
-Continue home Levothyroxine
Hyperlipidemia
-Does patient take statin at home?
Fatigue. May be related to development of A-fib. Unclear if something else had developed causing her to be symptomatic prior to development of A-fib. Will defer to hospitalist regarding evaluation for other causes of fatigue.
-Rule out UTI
.
Parkinson's disease
-Continue outpatient treatment with Sinemet and Ropinirole
History of recurrent UTI
- on prophylactic Macrobid
Depression/ Anxiety
- On chronic clonazepam
- On Paroxetine
Chronic narcotic dependant pain syndrome
- on Gabapentin 300mg tid
- on Oxycodone 5mg tid
Fatigue and weakness
Reports Contact exposure with Covid
- Negative Covid upon admission
History of Mass of Left Thigh
HOME MED REC
DVT PPx: Eliquis
Code: Full
Anticipated Discharge: > 48 hours
Subjective/Interval History
-
Date of Service: January 15, 2024
Patient was seen and examined. She denied any new symptoms or complaints. Her oxygen dropped to 88% overnight necessitating oxygen.
Objective Data
-
Labs:
Laboratory Results
01/15/24
05:34
WBC 9.3
Hgb 13.5
Hct 43.3
Plt Count 239
Sodium 138
Potassium 4.0
Chloride 91 L
Carbon Dioxide 38 H
BUN 28 H
Creatinine 0.6
Glucose 124 H
Calcium 9.8
Vital Signs:
Vital Signs
Temp Pulse Resp BP Pulse Ox
98.3 F 128 19 104/69 93
01/15/24 11:50 01/15/24 16:20 01/15/24 16:02 01/15/24 16:02 01/15/24 16:02
I&O
01/14/24 01/15/24 01/16/24
06:59 06:59 06:59
Intake Total 510 / 510 240 / 240
Output Total 650 / 650 650 / 650
Balance -650 / -650 -140 / -140 240 / 240
[2024-01-15] MEDS: LANOXIN 250 MCG PO (17:46)
--- NOTE | 2024-01-15 18:39 | PTCARENOTE ---
Patient given Digoxin for uncontrolled afib. Heart rate is now 120. Will endorse information to next shift. Patient is asymptomatic. For cardioversion in the morning.
[2024-01-15] MEDS: KLONOPIN 2 MG PO (21:44)
[2024-01-15] MEDS: LIPITOR 20 MG PO (21:44)
[2024-01-15] MEDS: ZYRTEC 5 MG PO (22:59)
[2024-01-16] VITALS (21 sets, daily range): BP systolic 92–134; BP diastolic 21–97
[2024-01-16 03:36] LABS: % Basophils 0.9 % (0-2); % Eosinophils 3.3 % (0-6); % Immature Granulocytes 0.2 % (0-0.5); % Lymphocytes 21.2 % (20.5-51.1); % Monocytes 6.8 % (1.7-9.3); % Neutrophils 67.6 % (42.2-75.2); Absolute Basophils 0.1 10^3/uL (0-0.2); Absolute Eosinophils 0.3 10^3/uL (0-0.7); Absolute Monocytes 0.6 10^3/uL (0.1-0.6); Absolute Neutrophils 6.3 10^3/uL (1.4-6.5); Hematocrit 39.7 % (37.0-47.0); Hemoglobin 12.5 g/dL (12.0-16.0); Mean Corp Hgb Conc. 31.5 g/dL (33.0-37.0); Mean Corpuscular Hgb 29.5 pg (27.0-31.0); Mean Corpuscular Volume 93.6 fL (81.0-99.0); Mean Platelet Volume 9.3 fL (7.4-10.4); Nucleated Red Blood Cells % 0 %; Platelet Count 218 10^3/uL (130-400); Red Blood Cell Count 4.24 10^6/uL (4.20-5.40); Red Cell Dist. Width 12.4 % (11.5-14.5); White Blood Cell Count 9.3 10^3/uL (4.8-10.8)
[2024-01-16 03:57] LABS: Blood Urea Nitrogen 18 mg/dl (7-17); Calcium 9.5 mg/dl (8.4-10.2); Carbon Dioxide 34 mmol/L (22-30); Chloride 94 mmol/L (98-107); Estimated Creatinine Clearance 86 ml/min; Glucose 103 mg/dl (70-99); Magnesium 2.3 mg/dl (1.6-2.3); Potassium 4.3 mmol/L (3.5-5.1); Sodium 136 mmol/L (135-145); eGFR > 60.00
--- NOTE | 2024-01-16 04:29 | PTCARENOTE ---
Patient remained in afib overnight. NPO past midnight for planned cardioversion today.
[2024-01-16] MEDS: SYNTHROID 100 MCG PO (05:04)
[2024-01-16] MEDS: ROXICODONE 5 MG PO ×2 (08:16→13:07)
[2024-01-16] MEDS: UROCIT-K 20 MEQ PO (08:16)
[2024-01-16] MEDS: REQUIP 2 MG PO ×2 (08:16→23:00)
[2024-01-16] MEDS: NEURONTIN 300 MG PO ×3 (08:16→20:18)
[2024-01-16] MEDS: ELIQUIS 5 MG PO ×2 (08:17→20:18)
[2024-01-16] MEDS: SINEMET 25-100 2 TABLET PO ×5 (08:18→23:03)
[2024-01-16] MEDS: PAXIL 30 MG PO (08:18)
--- NOTE | 2024-01-16 09:04 | W.PN.CD ---
Today's Communication / Plan
-
-Plan was for oral amiodarone since she was on it in the past but then patitn raised concern because the tablet has cornstarch and she is allergic. I do no this this is a clear contraindication since she took it before and pharmacy is aware of a
couple other pills she takes that contain corn starch.
for now will cardiovert and see fi she maintains sinus. Otherise she will need an antiarrhythmic drug if we are going to pursue rhythm control strategy.
- continue anticaogulation. Appears it she did not clearly take Eliquis the evening she came to hospital and dose may have been missed 01/13/24. Plan for CORA/CV
Impression / Plan
-
A-fib with RVR.
-Prior history of A-fib including ablation in 2019
-Cannot take IV Cardizem due to history of angioedema
-Consistently taking anticoagulation
-Failed attempt at cardioversion in ER.
-Continue anticoagulation with Eliquis
-IV Lopressor given in ER but then systolic blood pressure was in the 90s so it was discontinued.
-Initially plan was to use IV amiodarone. Patient had an unresponsive episode 2 minutes after starting amiodarone with very brief hypotension reported which spontaneously recovered despite no intervention. Difficult to fully explain the event.
Although IV amiodarone bolus could have lowered the pressure in a patient who already had relatively low blood pressure and caused syncope. However would expect medication induced hypotension to be more persistent and not resolve so quickly without
an intervention. No evidence of an allergic reaction. Of note patient has tolerated amiodarone in the past per her report. No evidence of pee arrhythmia. Telemetry fully reviewed. Possibility of a vagal episode is also a consideration.
Patient has a history of seizures but no evidence that this was the cause either.
-Heart rate is only mildly elevated we will continue to monitor. Patient may have been volume depleted on presentation which contributed to higher rates.
-Update echo this admission
-Since cardioversion unsuccessful in ER with reported couple beats of sinus then returned to A-fib. Would add oral amiodarone to try and hope and maintain sinus rhythm after next cardioversion
- received doses of Digoxin over weekend but no othersi given.
-Plan was for oral amiodaroen since she was on it in the past but then patitn raised concern because the tablet has cornstarch and she is allergic. I do no this this is a clear contrcindication since she took it before and pharmacy is aware of a
couple other pills she takes that contain corn starch.
for now will cardiovert and see fi she maintains sinus. Otherise she will need an antiarrhythmic drug if we are going to pursue rhythm control strategy.
Heart failure with preserved ejection fraction
-patient recently had weight gain and took additional metolazone. This may be cause for rising creatinine.
-Currently stable with evident evidence of decompensated heart failure.
-Monitor weights
MVR. Stable by last echo. Reassess with echo.
.
MARCELA. Creatinine 1.3. Now improved. Recently had increased diuresis with the addition of metolazone as an outpatient which may have contributed.
-Monitor with treatment noted above
Fatigue. Improved.
Parkinson's disease. Continue outpatient treatment.
Echo 12/21/2022
Technically difficult study - Definity recommended for future studies.
Normal left ventricular size, wall thickness and systolic function.
Bioprosthetic mitral valve.The peak/mean gradients across the valve are 22/8
mmHg.No mitral regurgitation.
Trace tricuspid regurgitation.
Estimated pulmonary artery pressure of 24 mmHg
Compared to prior study of. 12/16/21 no significant change
Physical Exam
Vital Signs/Labs
Vital Signs
Temp Pulse Resp BP Pulse Ox
97.8 F 88 13 119/84 92
01/16/24 03:04 01/16/24 08:00 01/16/24 08:00 01/16/24 08:00 01/16/24 07:00
01/15/24 01/16/24 01/17/24
06:59 06:59 06:59
Actual Weight 84.6 kg 84.2 kg
01/16/24 03:17
01/16/24 03:17
Magnesium 2.3 mg/dl (1.6-2.3) 01/16/24 03:17
Triglycerides 219 mg/dl (10-149) H 01/14/24 05:27
LDL Cholesterol, Calc 126 mg/dl 01/14/24 05:27
VLDL Cholesterol, Calc 43 mg/dl (0-30) H 01/14/24 05:27
HDL Cholesterol 28 mg/dl 01/14/24 05:27
TSH 0.76 uIU/ml (0.47-4.68) 01/14/24 05:27
01/13/24
16:59
Sum-G-Ftjgtcznocl Pept 3220
LAB Results
01/13/24
16:59
Troponin I < 0.012
Physical Exam
Constitutional: No acute distress
EENT: Anicteric
Cardiovascular: Rhythm/rate is irregular
Respiratory: Wheeze Absent and Rhonchi Absent
GI: Soft and Non tender
Neuro/Psych: Alert
Data Reviewed
-
Date of Service: January 16, 2024
Medical Decision Making: Reviewed Test Results
Echo: Report Reviewed by me
Medical Tests (PFT, Pathology etc): Report Reviewed by me
Labs: Labs Reviewed by me
--- NOTE | 2024-01-16 09:08 | CM ---
Patient seen at bedside. Patient for cardioversion today per chart review. CM will continue to follow for discharge planning needs.
Plan; home with family, VN possible referral to VN and restart of aides from [facility].
--- NOTE | 2024-01-16 09:08 | W.PN.HOSP.TC ---
Today's Communication/Plan
-
CORA/Cardioversion
Assessment / Plan
Assessment / Plan
Physical Exam
General: Not in acute distress
HEENT: Normocephalic
Respiratory: CTAB
Cardiac: S1 and S2. Irregular Rhythm
GI: Soft, Non Tender. Positive bowel sounds.
Skin: Warm
Neuro: Awake, Alert, Oriented and Other (Parkinson's)
Psych: Calm
A-fib with RVR.
History of A-Fib status post ablation in 2019
Allergy/Angioedema with Cardizem
History of Pleural Effusions
History of Pericardial Effusions
-Intolerant to IV Cardizem due to history of angioedema
-Failed attempt at cardioversion in ER.
-Continue anticoagulation with Eliquis
-Lopressor was stopped due to hypotension
-Oral Amiodarone started on 01/15/24
-In the ER, following Amiodarone bolus, patient was transiently unresponsive and hypotensive with SBP in the 60s -- but she spontaneously came back to normal
-Observe patient and allow for elevated rates through the weekend, another attempted electrical cardioversion on 01/16/24 -- discussed this with cardiology
-Update echo this admission
-CT Head showed no acute changes
Syncope - Vasovagal/Hypotensive in the ER after Amiodarone Bolus in the ER on day of presentation - unresponsive episode 2 minutes after starting amiodarone with very brief hypotension reported which spontaneously recovered despite no intervention.
HISTORY of Epilepsy
Remote History of Seizure - Seizure-free for past 22 years
-Spoke with patient's daughter Navya on 01/15/24 who mentioned that patient's body stiffened and eyes rolled over but other typical features of seizure were not present
-Consider neurology consult prior to discharge
Heart failure with preserved ejection fraction
-Patient recently had weight gain and took additional metolazone which could have resulted in rising creatinine.
-Monitor weights
Nocturnal Hypoxemia
-Nurse reported patient's oxygen dropped to 88% at night on room air while sleeping, therefore oxygen placed
-Patient has smoking history decades ago
-Spoke with patient's daughter Navya on 01/15/24 who mentioned that several years ago, patient saw pulmonary at [facility] at [place], [place], at that time she was told patient does nothave COPD but does have allergies
-Consider pulmonary consult/nocturnal oxygen study prior to discharge
Hypokalemia
-Possible side effect of recent Metolazone
-Replaced
-Monitor BMP and replace as needed
MARCELA - Suspected Cardiorenal Syndrome
-Recently had increased diuresis with the addition of metolazone.
-Hold home diuretics for now
-Monitor with treatment noted above
E. coli Bacteriuria
History of UTIs
-Per patient's nurse, she has bladder spasms after she urinates, but denied any UTI-related pain
-Hold any antibiotics at this time
-Monitor vital signs, white blood cell count, and for any new UTI symptoms
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
History of Left Subclavian Stenosis
-Continue Eliquis
-Does patient take statin at home?
-Check bilateral arm pressures to see if there is a significant discrepancy - if there is significant left subclavian stenosis then would recommend checking blood pressures right arm.
Mitral Regurgitation History. Mechanical MVR. Stable by last echo. Reassess with echo.
Bioprosthetic mitral valve?
Hypertension
-Holding antihypertensives due to hypotension
Hypothyroidism
-Continue home Levothyroxine
Hyperlipidemia
-Does patient take statin at home?
Fatigue. May be related to development of A-fib. Unclear if something else had developed causing her to be symptomatic prior to development of A-fib. Will defer to hospitalist regarding evaluation for other causes of fatigue.
-Rule out UTI
.
Parkinson's disease
-Continue outpatient treatment with Sinemet and Ropinirole
History of recurrent UTI
- on prophylactic Macrobid
Depression/ Anxiety
- On chronic clonazepam
- On Paroxetine
Chronic narcotic dependant pain syndrome
- on Gabapentin 300mg tid
- on Oxycodone 5mg tid
Fatigue and weakness
Reports Contact exposure with Covid
- Negative Covid upon admission
History of Mass of Left Thigh
Full code
Anticipated Discharge: Within 24 hours
Subjective/Interval History
-
Date of Service: January 16, 2024
Patient seen and examined. No complaints.
Objective Data
-
Labs:
Laboratory Results
01/16/24
03:17
WBC 9.3
Hgb 12.5
Hct 39.7
Plt Count 218
Sodium 136
Potassium 4.3
Chloride 94 L
Carbon Dioxide 34 H
BUN 18 H
Creatinine 0.5 L
Glucose 103 H
Calcium 9.5
Vital Signs:
Vital Signs
Temp Pulse Resp BP Pulse Ox
97.8 F 88 13 119/84 92
01/16/24 03:04 01/16/24 08:00 01/16/24 08:00 01/16/24 08:00 01/16/24 07:00
I&O
01/15/24 01/16/24 01/17/24
06:59 06:59 06:59
Intake Total 510 / 510 720 / 720
Output Total 650 / 650 500 / 500
Balance -140 / -140 220 / 220
Review of Systems
-
History Source: Patient
All other systems: Reviewed and negative
--- NOTE | 2024-01-16 09:13 | W.PN.CD ---
Today's Communication / Plan
-
Plan was for oral amiodarone since she was on it in the past but then patient raised concern because the tablet has cornstarch and she is allergic. I do no this this is a clear contraindication since she took it before and pharmacy is aware of a
couple other pills she takes that contain corn starch.
for now will cardiovert and see fi she maintains sinus. Otherwise she will need an antiarrhythmic drug if we are going to pursue rhythm control strategy.
Due to suspected missed dose 01/13/24 - plan for CORA/CV.
Impression / Plan
-
A-fib with RVR.
-Prior history of A-fib including ablation in 2019
-Cannot take IV Cardizem due to history of angioedema
-Consistently taking anticoagulation
-Failed attempt at cardioversion in ER.
-Continue anticoagulation with Eliquis
-IV Lopressor given in ER but then systolic blood pressure was in the 90s so it was discontinued.
-Initially plan was to use IV amiodarone. Patient had an unresponsive episode 2 minutes after starting amiodarone with very brief hypotension reported which spontaneously recovered despite no intervention. Difficult to fully explain the event.
Although IV amiodarone bolus could have lowered the pressure in a patient who already had relatively low blood pressure and caused syncope. However would expect medication induced hypotension to be more persistent and not resolve so quickly without
an intervention. No evidence of an allergic reaction. Of note patient has tolerated amiodarone in the past per her report. No evidence of pee arrhythmia. Telemetry fully reviewed. Possibility of a vagal episode is also a consideration.
Patient has a history of seizures but no evidence that this was the cause either.
-Heart rate is only mildly elevated we will continue to monitor. Patient may have been volume depleted on presentation which contributed to higher rates.
-Update echo this admission
-Since cardioversion unsuccessful in ER with reported couple beats of sinus then returned to A-fib. Would add oral amiodarone to try and hope and maintain sinus rhythm after next cardioversion
- received doses of Digoxin over weekend but no othersi given.
-Plan was for oral amiodarone since she was on it in the past but then patient raised concern because the tablet has cornstarch and she is allergic. I do no this this is a clear contraindication since she took it before and pharmacy is aware of a
couple other pills she takes that contain corn starch.
for now will cardiovert and see fi she maintains sinus. Otherwise she will need an antiarrhythmic drug if we are going to pursue rhythm control strategy.
Due to suspected missed dose 01/13/24 - plan for CORA/CV.
Heart failure with preserved ejection fraction
-patient recently had weight gain and took additional metolazone. This may be cause for rising creatinine.
-Currently stable with evident evidence of decompensated heart failure.
-Monitor weights
MVR. Stable by last echo. Reassess with echo.
.
MARCELA. Creatinine 1.3. Now improved. Recently had increased diuresis with the addition of metolazone as an outpatient which may have contributed.
-Monitor with treatment noted above
Fatigue. Improved.
Parkinson's disease. Continue outpatient treatment.
Echo 12/21/2022
Technically difficult study - Definity recommended for future studies.
Normal left ventricular size, wall thickness and systolic function.
Bioprosthetic mitral valve.The peak/mean gradients across the valve are 22/8
mmHg.No mitral regurgitation.
Trace tricuspid regurgitation.
Estimated pulmonary artery pressure of 24 mmHg
Compared to prior study of. 12/16/21 no significant change
Physical Exam
Vital Signs/Labs
Vital Signs
Temp Pulse Resp BP Pulse Ox
97.8 F 88 13 119/84 92
01/16/24 03:04 01/16/24 08:00 01/16/24 08:00 01/16/24 08:00 01/16/24 07:00
01/15/24 01/16/24 01/17/24
06:59 06:59 06:59
Actual Weight 84.6 kg 84.2 kg
01/16/24 03:17
01/16/24 03:17
Magnesium 2.3 mg/dl (1.6-2.3) 01/16/24 03:17
Triglycerides 219 mg/dl (10-149) H 01/14/24 05:27
LDL Cholesterol, Calc 126 mg/dl 01/14/24 05:27
VLDL Cholesterol, Calc 43 mg/dl (0-30) H 01/14/24 05:27
HDL Cholesterol 28 mg/dl 01/14/24 05:27
TSH 0.76 uIU/ml (0.47-4.68) 01/14/24 05:27
01/13/24
16:59
Cfd-G-Camncftblwy Pept 3220
LAB Results
01/13/24
16:59
Troponin I < 0.012
Data Reviewed
-
Date of Service: January 16, 2024
--- NOTE | 2024-01-16 10:13 | PTCARENOTE ---
Npo since MN x am meds with sip of water. Purewick removed- voided this am. INT in place. AF on tele, 80s-90s. BP 104/67, LCTA 94% RAIR. Report given to labor relations or personnel negotiator- awaiting transport.
--- NOTE | 2024-01-16 11:24 | ITS.CL.CARDI ---
[facility] - Cardioversion
Cardioversion
Procedure Report:
Date of Procedure: January 16 2024
Procedure: Cardioversion
Indication: Symptomatic atrial fibrillation
Performing Physician: Andrew Andujar DO, FACC
Technique: The patient was brought to the holding area. Signed informed consent was obtained. A time out was called and performed. The patient was anesthetized by the anesthesia service. Anticoagulation status was reviewed and appropriate. R2 pads
were placed anteriorly and posteriorly. Following successful CORA, a 200 J synchronized biphasic shock restored normal sinus rhythm without significant bradycardia. There were no complications.
Conclusion: Uncomplicated cardioversion from atrial fibrillation to sinus rhythm.
Recommendation: Routine post cardioversion care. Continue product owner anticoagulation.
--- NOTE | 2024-01-16 12:42 | PTCARENOTE ---
Returned from vascular lab- KAREN Pinto on RA. Tele showing NSR 1st degree AVB 60. BP 93/58- still slightly sedated. Purewick placed. Daughter at bedside.
[2024-01-16] MEDS: OCUVITE SOFTGEL 1 CAP PO ×2 (13:07→20:17)
[2024-01-16] MEDS: VITAMIN D3 (cholecalciferol) 25 MCG PO (13:07)
[2024-01-16] MEDS: KCL 40 MEQ PO ×2 (13:07→20:17)
[2024-01-16] MEDS: FEOSOL 325 MG PO (16:17)
[2024-01-16] MEDS: PROTONIX 40 MG PO (16:17)
--- NOTE | 2024-01-16 22:19 | PTCARENOTE ---
Patients daughter was at the bedside demanding to see the nursing ammunition supervisor due to mothers medication schedule. Medication schedule explained to daughter and she became agitated. Daughter stated that her mother was supposed to be on sinemet 5 times
a day instead of 4. scallop binder provider made aware and ordered 5th dose of sinemet. After med change happened, daughter was satisfied with care and stated she will talk to someone in the morning. Daughter also upset that the MD didnt call her today.
Distance Learning Coordinator made aware of situation.
[2024-01-16] MEDS: KLONOPIN 2 MG PO (22:59)
[2024-01-16] MEDS: ZYRTEC 5 MG PO (23:00)
[2024-01-17] VITALS (14 sets, daily range): BP systolic 94–134; BP diastolic 41–101; BMI 30.6
--- NOTE | 2024-01-17 04:17 | PTCARENOTE ---
Patient remained in NSR/sinus pee overnight. Remains on room air.
[2024-01-17] MEDS: SYNTHROID 100 MCG PO (05:08)
[2024-01-17] MEDS: NEURONTIN 300 MG PO (08:01)
[2024-01-17] MEDS: REQUIP 2 MG PO (08:02)
[2024-01-17] MEDS: SINEMET 25-100 2 TABLET PO ×2 (08:02→12:02)
[2024-01-17] MEDS: UROCIT-K 20 MEQ PO (08:02)
[2024-01-17] MEDS: PAXIL 30 MG PO (08:03)
[2024-01-17] MEDS: ROXICODONE 5 MG PO (08:03)
[2024-01-17] MEDS: ELIQUIS 5 MG PO (08:03)
--- NOTE | 2024-01-17 08:31 | W.PN.HOSP.TC ---
Today's Communication/Plan
-
Discharge
Assessment / Plan
Assessment / Plan
Physical Exam
General: Not in acute distress
HEENT: Normocephalic
Respiratory: CTAB
Cardiac: S1 and S2. Irregular Rhythm
GI: Soft, Non Tender. Positive bowel sounds.
Skin: Warm
Neuro: Awake, Alert, Oriented and Other (Parkinson's)
Psych: Calm
A-fib with RVR -cardioverted successfully to sinus rhythm on January 15. Has remained in sinus rhythm since. Continue Eliquis. Does not need rate controlling medication as heart rate is already controlled. Discussed with cardiology.
History of A-Fib status post ablation in 2019
Allergy/Angioedema with Cardizem
History of Pleural Effusions
History of Pericardial Effusions
-Intolerant to IV Cardizem due to history of angioedema
-Failed attempt at cardioversion in ER.
-Continue anticoagulation with Eliquis
-Lopressor was stopped due to hypotension
-Oral Amiodarone started on 01/15/24
-In the ER, following Amiodarone bolus, patient was transiently unresponsive and hypotensive with SBP in the 60s -- but she spontaneously came back to normal
-Observe patient and allow for elevated rates through the weekend, another attempted electrical cardioversion on 01/16/24 -- discussed this with cardiology
-Update echo this admission
-CT Head showed no acute changes
Syncope - Vasovagal/Hypotensive in the ER after Amiodarone Bolus in the ER on day of presentation - unresponsive episode 2 minutes after starting amiodarone with very brief hypotension reported which spontaneously recovered despite no intervention.
HISTORY of Epilepsy
Remote History of Seizure - Seizure-free for past 22 years
-Spoke with patient's daughter Navya on 01/15/24 who mentioned that patient's body stiffened and eyes rolled over but other typical features of seizure were not present
-Consider neurology consult prior to discharge
Heart failure with preserved ejection fraction
-Patient recently had weight gain and took additional metolazone which could have resulted in rising creatinine.
-Monitor weights
Nocturnal Hypoxemia
-Nurse reported patient's oxygen dropped to 88% at night on room air while sleeping, therefore oxygen placed
-Patient has smoking history decades ago
-Spoke with patient's daughter Navya on 01/15/24 who mentioned that several years ago, patient saw pulmonary at [facility] [place] [place], at that time she was told patient does nothave COPD but does have allergies
-Outpatient pulmonary follow-up
Hypokalemia
-Possible side effect of recent Metolazone
-Replaced
-Monitor BMP and replace as needed
MARCELA - Suspected Cardiorenal Syndrome
-Recently had increased diuresis with the addition of metolazone.
-Hold home diuretics for now
-Monitor with treatment noted above
E. coli Bacteriuria
History of UTIs
-Per patient's nurse, she has bladder spasms after she urinates, but denied any UTI-related pain
-Hold any antibiotics at this time
-Monitor vital signs, white blood cell count, and for any new UTI symptoms
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
History of Left Subclavian Stenosis
-Continue Eliquis
-Does patient take statin at home?
-Check bilateral arm pressures to see if there is a significant discrepancy - if there is significant left subclavian stenosis then would recommend checking blood pressures right arm.
Mitral Regurgitation History. Mechanical MVR. Stable by last echo. Reassess with echo.
Bioprosthetic mitral valve?
Hypertension
-Holding antihypertensives due to hypotension
Hypothyroidism
-Continue home Levothyroxine
Hyperlipidemia
-Does patient take statin at home?
Fatigue. May be related to development of A-fib. Unclear if something else had developed causing her to be symptomatic prior to development of A-fib. Will defer to hospitalist regarding evaluation for other causes of fatigue.
-Rule out UTI
.
Parkinson's disease
-Continue outpatient treatment with Sinemet and Ropinirole
History of recurrent UTI
- on prophylactic Macrobid
Depression/ Anxiety
- On chronic clonazepam
- On Paroxetine
Chronic narcotic dependant pain syndrome
- on Gabapentin 300mg tid
- on Oxycodone 5mg tid
Fatigue and weakness
Reports Contact exposure with Covid
- Negative Covid upon admission
History of Mass of Left Thigh
Full code
Dispo -medically stable for discharge. Updated daughter on the phone. Outpatient follow-up.
32-minute spent in discharge process.
Anticipated Discharge: Today
Subjective/Interval History
-
Date of Service: January 17, 2024
Patient seen and examined. No complaints.
Objective Data
-
Vital Signs:
Vital Signs
Temp Pulse Resp BP Pulse Ox
97.7 F 61 17 111/51 94
01/17/24 03:00 01/17/24 06:00 01/17/24 06:00 01/17/24 06:00 01/17/24 08:16
I&O
01/16/24 01/17/24 01/18/24
06:59 06:59 06:59
Intake Total 720 / 720 480 / 480
Output Total 500 / 500 680 / 680
Balance 220 / 220 -200 / -200
Review of Systems
-
History Source: Patient
All other systems: Reviewed and negative
--- NOTE | 2024-01-17 08:39 | W.DS.TRANS ---
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
-
Discharge Instructions:
Sleep Apnea Risk Low
Discharge Diagnosis/Procedures Rapid atrial fibrillation
Diet Low Cholesterol,Low Fat
Activity As tolerated
Driving Restrictions As prior to admission
Bathing Restrictions None
Instructions:
Stand-Alone Forms:
Changes to Home Medications: No
Discharge Medications:
DC Medications w/original date entered in [employer]
clonazepam 1 mg tablet 2 mg PO DAILY@0000 Mental Health/Anxiety 08/19/20
levocetirizine 5 mg tablet (Xyzal) 5 mg PO DAILY@0000 Allergies 08/19/20
omeprazole 40 mg capsule,delayed release 40 mg PO DAILY@1600 Gastrointestinal issue 08/19/20
oxycodone 5 mg tablet 5 mg PO BID@0800,1400 Pain 08/19/20
paroxetine HCl 30 mg tablet 30 mg PO DAILY@1200 Depression 08/19/20
potassium chloride 20 mEq tablet,extended release(part/cryst) 40 meq PO BID@1200,2000 Electrolyte Repletion 11/26/20
apixaban 5 mg tablet (Eliquis) 5 mg PO BID Blood clot prevention/tx 12/07/22
carbidopa 25 mg-levodopa 100 mg tablet 2 tab PO 5/D@00,08,12,16,20 Neurological Condition 12/07/22
clonazepam 1 mg tablet 0.5 mg PO DAILY@1600 12/07/22
ropinirole 2 mg tablet,extended release 24 hr 2 mg PO BID@0000,0800 Neurological Condition 12/07/22
torsemide 20 mg tablet 40 mg PO BID@0800,1400 Fluid retention/Swelling 12/07/22
cholecalciferol (vitamin D3) 25 mcg (1,000 unit) tablet 25 mcg PO DAILY@1200 01/13/24
ferrous sulfate 325 mg (65 mg iron) tablet (FeroSul) 325 mg PO DAILY@1400 01/13/24
gabapentin 250 mg/5 mL oral solution 300 mg PO TID@0800,1400,2000 01/13/24
levothyroxine 100 mcg tablet 100 mcg PO DAILY@0700 01/13/24
oxycodone 5 mg tablet 5 mg PO BIDPRN PRN moderate pain 01/13/24
spironolactone 25 mg tablet 25 mg PO DAILY@199901/13/24
spironolactone 25 mg tablet 50 mg PO DAILY 01/13/24
vit C 250 mg-vit E 90 mg-zinc 40 mg-copper 1 [id number] capsule (PreserVision AREDS-2) 1 tab PO BID@1199,199901/13/24
atorvastatin 20 mg tablet 20 mg PO Q48H #0 tabs 01/17/24
Home Medication Changes
Pending Results: No
--- NOTE | 2024-01-17 09:43 | W.PN.CD ---
Today's Communication / Plan
-
-Status-post successful CORA/cardioversion yesterday; remains in sinus rhythm.
-Resume home diuretic regimen (torsemide 40 mg twice daily, spironolactone 50 mg Qam/25 mg Qpm, and KCl 40 mEq twice daily); continue metolazone only on a PRN basis.
-Stable for discharge to home today.
-Outpatient follow-up with Cardiology (Dr. Berry on 01/30/2024 at 3:40 PM).
Impression / Plan
-
A-fib with RVR.
-Prior history of A-fib including ablation in 2019
-Cannot take IV Cardizem due to history of angioedema
-Continue anticoagulation with Eliquis
-IV Lopressor given in ER but then systolic blood pressure was in the 90s so it was discontinued.
-Initially plan was to use IV amiodarone. Patient had an unresponsive episode 2 minutes after starting amiodarone with very brief hypotension reported which spontaneously recovered despite no intervention. Difficult to fully explain the event.
Although IV amiodarone bolus could have lowered the pressure in a patient who already had relatively low blood pressure and caused syncope. However would expect medication induced hypotension to be more persistent and not resolve so quickly without
an intervention. No evidence of an allergic reaction. Of note patient has tolerated amiodarone in the past per her report. No evidence of pee arrhythmia. Telemetry fully reviewed. Possibility of a vagal episode is also a consideration.
Patient has a history of seizures but no evidence that this was the cause either.
-Received doses of Digoxin over weekend, but no others given.
-Plan was for oral amiodarone since she was on it in the past but then patient raised concern because the tablet has cornstarch and she is allergic. I do no this this is a clear contraindication since she took it before and pharmacy is aware of a
couple other pills she takes that contain corn starch.
-Status-post successful CORA/cardioversion yesterday; remains in sinus rhythm.
-Stable for discharge to home today.
Chronic Heart failure with preserved ejection fraction
-Stable.
-Resume home diuretic regimen (torsemide 40 mg twice daily, spironolactone 50 mg Qam/25 mg Qpm, and KCl 40 mEq twice daily); continue metolazone only on a PRN basis.
MVR - Stable.
.
MARCELA. Creatinine 1.3. Now improved. Recently had increased diuresis with the addition of metolazone as an outpatient which may have contributed.
-Monitor with treatment noted above
Parkinson's disease. Continue outpatient treatment.
Echo 12/21/2022
Technically difficult study - Definity recommended for future studies.
Normal left ventricular size, wall thickness and systolic function.
Bioprosthetic mitral valve.The peak/mean gradients across the valve are 22/8
mmHg.No mitral regurgitation.
Trace tricuspid regurgitation.
Estimated pulmonary artery pressure of 24 mmHg
Compared to prior study of. 12/16/21 no significant change
Physical Exam
Vital Signs/Labs
Vital Signs
Temp Pulse Resp BP Pulse Ox
97.9 F 61 17 111/51 94
01/17/24 07:32 01/17/24 06:00 01/17/24 06:00 01/17/24 06:00 01/17/24 08:16
01/16/24 01/17/24 01/18/24
06:59 06:59 06:59
Actual Weight 84.2 kg 86 kg
01/16/24 03:17
01/16/24 03:17
Magnesium 2.3 mg/dl (1.6-2.3) 01/16/24 03:17
Triglycerides 219 mg/dl (10-149) H 01/14/24 05:27
LDL Cholesterol, Calc 126 mg/dl 01/14/24 05:27
VLDL Cholesterol, Calc 43 mg/dl (0-30) H 01/14/24 05:27
HDL Cholesterol 28 mg/dl 01/14/24 05:27
TSH 0.76 uIU/ml (0.47-4.68) 01/14/24 05:27
01/13/24
16:59
Gpn-A-Enedjzshlod Pept 3220
Physical Exam
Constitutional: No acute distress and Comfortable
EENT: Anicteric
Cardiovascular: Rhythm & rate is regular, Pedal edema is absent, Systolic murmur absent and S1S2 is normal
Respiratory: Respiratory effort normal and Lungs clear to auscul.
GI: Soft
Neuro/Psych: AO x 3
Other: Skin (Warm, dry, intact)
Data Reviewed
-
Date of Service: January 17, 2024
EKG: Tracing Personally Visualized and interpreted (Telemetry: Sinus rhythm)
Medical Tests (PFT, Pathology etc): Discussed with Physician (Primary Hospitalist)
Labs: Labs Reviewed by me
--- NOTE | 2024-01-17 10:08 | W.DS.TRANS ---
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
-
Discharge Instructions:
Sleep Apnea Risk Low
Discharge Diagnosis/Procedures Rapid atrial fibrillation
Diet Low Cholesterol,Low Fat
Activity As tolerated
Driving Restrictions As prior to admission
Bathing Restrictions None
Instructions:
Stand-Alone Forms:
Changes to Home Medications: No
Discharge Medications:
DC Medications w/original date entered in [employer]
clonazepam 1 mg tablet 2 mg PO DAILY@0000 Mental Health/Anxiety 08/19/20
levocetirizine 5 mg tablet (Xyzal) 5 mg PO DAILY@0000 Allergies 08/19/20
omeprazole 40 mg capsule,delayed release 40 mg PO DAILY@1600 Gastrointestinal issue 08/19/20
oxycodone 5 mg tablet 5 mg PO BID@0800,1400 Pain 08/19/20
paroxetine HCl 30 mg tablet 30 mg PO DAILY@1200 Depression 08/19/20
potassium chloride 20 mEq tablet,extended release(part/cryst) 40 meq PO BID@1200,2000 Electrolyte Repletion 11/26/20
apixaban 5 mg tablet (Eliquis) 5 mg PO BID Blood clot prevention/tx 12/07/22
carbidopa 25 mg-levodopa 100 mg tablet 2 tab PO 5/D@00,08,12,16,20 Neurological Condition 12/07/22
clonazepam 1 mg tablet 0.5 mg PO DAILY@1600 12/07/22
ropinirole 2 mg tablet,extended release 24 hr 2 mg PO BID@0000,0800 Neurological Condition 12/07/22
torsemide 20 mg tablet 40 mg PO BID@0800,1400 Fluid retention/Swelling 12/07/22
cholecalciferol (vitamin D3) 25 mcg (1,000 unit) tablet 25 mcg PO DAILY@1200 01/13/24
ferrous sulfate 325 mg (65 mg iron) tablet (FeroSul) 325 mg PO DAILY@1400 01/13/24
gabapentin 250 mg/5 mL oral solution 300 mg PO TID@0800,1400,2000 01/13/24
levothyroxine 100 mcg tablet 100 mcg PO DAILY@0700 01/13/24
oxycodone 5 mg tablet 5 mg PO BIDPRN PRN moderate pain 01/13/24
spironolactone 25 mg tablet 25 mg PO DAILY@199901/13/24
spironolactone 25 mg tablet 50 mg PO DAILY 01/13/24
vit C 250 mg-vit E 90 mg-zinc 40 mg-copper 1 mm-jzdcom-pdtajh capsule (PreserVision AREDS-2) 1 tab PO BID@1200,199901/13/24
atorvastatin 20 mg tablet 20 mg PO Q48H #0 tabs 01/17/24
metolazone 2.5 mg tablet See Rx Instructions .Route .COMPLEX #10 tabs 01/17/24
Home Medication Changes
Pending Results: No
--- NOTE | 2024-01-17 10:19 | CM ---
CM reviewed chart and noted dc order
Bedside meeting with pt with dc update
VN recommended and referral made to [facility]
VN order on chart
IMMN verbally reviewed- copy provided
Update to dtr/Navya over phone
Transportation discussed as well as noted transfer needs per therapy noted
Dtr noted and she pt's grandson will be able to assist with car transfers
No need for CM to arrange for transport
Discharge Disposition- home with [facility]- family transport
--- NOTE | 2024-01-17 10:49 | VNURNOTE ---
Home Health Liaison spoke with patient's daughter Navya at 1030 to discuss [facility] nurse/therapy, visits, schedule and homebound status. Navya is agreeable and understands that visits at home will be 2-3 x per week to assess and teach medical management.
[facility] contact information provided. Navya is aware that [facility] will contact them for start of care in 1-2 days after discharge from .
[facility] referral completed in [facility].
[2024-01-17] MEDS: VITAMIN D3 (cholecalciferol) 25 MCG PO (12:00)
[2024-01-17] MEDS: OCUVITE SOFTGEL 1 CAP PO (12:00)
[2024-01-17] MEDS: KCL 40 MEQ PO (12:00)
--- NOTE | 2024-01-17 13:58 | PTCARENOTE ---
Pt for d/c home. Instructions and med list reviewed at length with pt and daughter. Belongings collected from room. Transferred off unit via wheelchair. D/c home with daughter.
== END 2024-01-17 14:22 | disposition home health service (06) | DRG 309 ==
LOC: IMU 20:34
PROVIDERS: Hospitalist; Nuclear Medicine Nuclear Cardiology; Nurse Practitioner Gerontology; Physician Assistant; ADMITTING PHYSICIAN Internal Medicine; ATTENDING PHYSICIAN Hospitalist; CONSULT PHYSICIAN Internal Medicine Cardiovascular Disease; EMERGENCY PHYSICIAN Emergency Medicine; FAMILY PHYSICIAN Nurse Practitioner Primary Care
PROC: 5A2204Z Restoration of Cardiac Rhythm, Single (ICD-10-PCS; 2024-01-16)
DX: I48.0 Paroxysmal atrial fibrillation (principal); F11.20 Opioid dependence, uncomplicated; N17.9 Acute kidney failure, unspecified; I50.32 Chronic diastolic (congestive) heart failure; I11.0 Hypertensive heart disease with heart failure; Z95.3 Presence of xenogenic heart valve; G20.A1 Parkinson's disease without dyskinesia, without mention of fluctuations; E03.9 Hypothyroidism, unspecified; F32.A Depression, unspecified; I65.21 Occlusion and stenosis of right carotid artery; I69.398 Other sequelae of cerebral infarction; H53.8 Other visual disturbances; F41.9 Anxiety disorder, unspecified; E87.6 Hypokalemia; E78.5 Hyperlipidemia, unspecified; G89.4 Chronic pain syndrome; G47.33 Obstructive sleep apnea (adult) (pediatric); K21.9 Gastro-esophageal reflux disease without esophagitis; R53.1 Weakness; R53.83 Other fatigue; Z79.890 Hormone replacement therapy; Z79.899 Other long term (current) drug therapy; Z87.440 Personal history of urinary (tract) infections; Z11.52 Encounter for screening for COVID-19; Z88.2 Allergy status to sulfonamides; Z88.5 Allergy status to narcotic agent; Z88.6 Allergy status to analgesic agent; Z88.8 Allergy status to other drugs, medicaments and biological substances
CPT/HCPCS: 70450; 71045; 71275; 80048; 80053; 80061; 81003; 81015; 83735; 83880; 84443; 84484; 85025; 85027; 87077; 87086; 87186; 87502; 87811; 92960; 93005; 93312; 93320; 93325; 96374; 96375; 97163; 97167; 99152; 99285; Q9967

== ENCOUNTER 2024-02-08 14:08 | Inpatient (IN) | payer MEDICARE, OTHER, SELFPAY ==
[2024-02-08] VITALS (18 sets, daily range): BP systolic 83–138; BP diastolic 53–102; BMI 30.3; BMI 29.7
--- NOTE | 2024-02-08 10:51 | ED.GENMED ---
History of Present Illness
General
Chief Complaint: Heart Rate Problem
Source: patient and family
Exam Limitations: none
Time Seen by Provider: 02/08/24 10:34
Nursing documentation reviewed up to this point in time: agreed with
History of Present Illness
History of Present Illness:
pt is a 78 y/o F with h/o parkinsons
PAF on eliquis
admitted in december for afib with RVR, hypotensive with BB and allergic to dilt, on amio drip and CORA cardioversion was successful
pt went back into afib last night
her hr was 120s but initially not reading afib until about 11 pm when it registerd afib 130s; pt was asleep; family called dr. martinez who was quality assurance monitor who recommedned that she let the patietn sleep and bring her tomorrow
there was some suggestion last time that she would need flecainide if she went back into afib
pt has not had any chest pain
she does feel altitle sob and shaky, but also has parkinsos
no weight gain
also c/o chorinc RLE pain for a year
has been using a wheelchair and banged her k nee and wants it looked at
Past History
Past History
ED Past Medical History: Arrthythmia, HTN, Other (non-compliance w/ med- took another person's thyroid med), Other ('Parkinson's') and Other (Seizure D/O)
ED Past Surgical History: Cardiac (R carotid endarterectomy, mitral valve replacement) and Gynecological
Social History
Tobacco: Non-smoker
Alcohol: None
Drug: None
Personal:
Living: with family
Employment: Employed
Family History
Family History: Other (reviewed and non-contributory)
Phy Exam
Physical Exam
Physical Exam:
GENERAL: Alert , in no apparent distress
EYE: pupils equal and reactive
NECK: Supple
ENT: o/p clr, mmm.
CARDIAC irregularly irregular, tachycardic, no murmur appreciated
LUNGS: Clear breath sounds bilaterally, no acute respiratory distress, no wheezes/rales/rhonchi, no rales
ABDOMEN: Soft, without focal tenderness, no r/g, no cvat, normal bowel sounds
NEUROLOGICAL: Alert and oriented, no focal neuro deficits resting tremor
SKIN: Warm and dry, skin intact.
MUSCULOSKELETAL: No edema, well perfused. neg merlin's sign
PSYCH: Normal and appropriate interaction.
Course
Orders/Labs/Results
Orders:
Orders
02/08/24 10:32
Electrocardiogram (*1) Urgent
Reason for Study: Atrial Fibrillation
EKG- Treatment ONCE
02/08/24 10:49
CR Chest Portable - 1 View Urgent
Comment:
Reason For Exam: afib with rvr
Reason Study Needs to be Portable: Patient Unstable
02/08/24 10:50
CMP [Comprehensive Metabolic Panel] Urgent
Complete Blood Count/With Diff Urgent
02/08/24 10:56
Femur, Right 2 View [CR Femur - Right Min 2 Vw] Urgent
Comment:
Reason For Exam: right leg maría
Tib/Fib, Right 2 View [CR Leg Tibia/fibula Right 2 Vw] Urgent
Comment:
Reason For Exam: righ leg pain
02/08/24 10:57
CARDIOLOGY CONSULT Urgent
Consulting Provider: Herb Wu
Was physician already notified: Yes
02/08/24 11:42
0.9% Sodium Chloride 250 ml [Nss] 250 ml IV BOLUS
Abnormal Lab Results
02/08/24
10:50
Absolute Neuts (auto) 7.3 H 10^3/uL
(1.4-6.5)
Neutrophils % 77.2 H %
(42.2-75.2)
Lymphocytes % 15.4 L %
(20.5-51.1)
Chloride 96 L mmol/L
(98-107)
BUN 21 H mg/dl
(7-17)
Glucose 222 H mg/dl
(70-99)
02/08/24 10:50
02/08/24 10:50
Vital Signs
Initial and Last Documented VS:
Initial Vital Signs
Temp Pulse Resp BP Pulse Ox
98.6 F 163 20 114/80 95
02/08/24 10:30 02/08/24 10:30 02/08/24 10:30 02/08/24 10:30 02/08/24 10:30
Last Documented Vital Signs
Temp Pulse Resp BP Pulse Ox
98.6 F 161 22 108/78 94
02/08/24 10:30 02/08/24 10:45 02/08/24 10:45 02/08/24 10:44 02/08/24 10:48
MDM/Problems Addressed
Differential Diagnosis Includes:
afib with RVR, chf
MDM/Problems Addressed:
room 22 is going to be IVU for rapid afib; per cardiology; they will see her soon
perri delgado 78 y/o F with PAF on eliquis
complex case
in december failed ED cardioversion and doesn't tolerate BB or dilt (allergy)
got amio drip and then CORA cardioversion which was successful
afib with RVR 160s since last night; no signs of failure
cxr nidep reviewed by me, and no cxr
bp soft 100/60; downtrended to 80s/50s
d/w dr. wu from cardiology
he initially recommended no rate control
she will likely need ICU;
possibly tikosyn
recommended small fluid bolus to try to help pressure
*Critical Care Note
Total Time (30-74mins, 75-104mins- exclusive of procedures): Not Applicable
Update Note
Update Note:
room 22 is going to be IVU for rapid afib; per cardiology; they will see her soon
perri delgado 78 y/o F with PAF on eliquis
in december failed ED cardioversion and doesn't tolerate BB or dilt
got amio drip and then CORA cardioversion
afib with RVR 160s since last night; no signs of failure
bp soft 100/60;
michoacano said they will see her and eval for tikosyn;
ED Attending Note
-
Portions of this chart may have been created with voice recognition software.� Occasional wrong word or��sound alike� substitutions may have occurred due to the inherent limitations of voice recognition software.
Discharge Plan
Departure
Patient Disposition: Admit
Date of Disposition: 02/08/24
Time of Disposition: 11:29
Admit to: ICU
Presentation/result/management discussed w/ accepting MD/DO: Hospitalist
Discharge Problem:
Atrial fibrillation with rapid ventricular response
Prescriptions:
No Action
clonazepam 1 MG tablet
2 mg PO DAILY@0000
omeprazole 40 MG capsule,delayed release(DR/EC)
40 mg PO DAILY@1600
paroxetine HCl 30 MG tablet
30 mg PO DAILY@1200
oxycodone 5 MG tablet
5 mg PO BID@0800,1200
levocetirizine [Xyzal] 5 MG tablet
5 mg PO DAILY@0000
torsemide 20 mg Tablet
40 mg PO BID@0800,1400
clonazepam 1 mg Tablet
0.5 mg PO DAILY@1600
carbidopa-levodopa 25-100 mg tablet
2 tab PO 5/D@00,08,12,16,20
ropinirole 2 mg tablet extended release 24 hr
2 mg PO BID@0000,0800
Eliquis 5 MG tablet
5 mg PO BID@0800,2000
gabapentin 250 mg/5 mL solution
300 mg PO TID@0800,1399,1999
spironolactone 25 mg tablet
50 mg PO DAILY
spironolactone 25 mg tablet
25 mg PO DAILY@1999
levothyroxine 100 mcg tablet
100 mcg PO DAILY@0700
ferrous sulfate [FeroSul] 325 mg (65 mg iron) tablet
325 mg PO DAILY@1400
oxycodone 5 mg tablet
5 mg PO BIDPRN PRN (Reason: moderate pain)
cholecalciferol (vitamin D3) 25 mcg (1,000 unit) Tablet
25 mcg PO DAILY@1200
PreserVision AREDS-2 250-90-40-1 mg Capsule
1 tab PO BID@1199,1999
clonazepam 1 mg Tablet
0.5 mg PO DAILYPRN PRN (Reason: anxiety)
acetaminophen [Tylenol Arthritis Pain] 650 mg Tablet Extended Release
1,300 mg PO DAILY@1199
hydrocortisone 2.5 % Cream
1 applic TOPICAL BIDPRN PRN (Reason: eczema rash)
coenzyme Q10 [CoQ-10] 100 mg Capsule
100 mg PO DAILY@1999
nitrofurantoin monohyd/m-cryst [Macrobid] 100 mg Capsule
100 mg PO DAILY@1199
ropinirole 2 mg Tablet Extended Release 24 Hr
1 mg PO DAILYPRN PRN (Reason: Parkinson's symptoms)
potassium chloride 20 mEq tablet extended release
40 meq PO BID@
Referrals:
Yessica Martin CRNP [Family Provider] -
Interventions
Interventions:
*Risk Screen - Suicide Last Done: 02/08/24 10:30
*General Assessment Last Done: 02/08/24 10:30
*Neglect/Abuse Screening Last Done: 02/08/24 10:30
ED- Fall Risk Assessment Last Done: 02/08/24 10:48
ED- Cardiac Assessment Last Done: 02/08/24 10:48
ED- Pulmonary Assessment Last Done: 02/08/24 10:48
Discharge Date and Time
Print Language: LAO
[2024-02-08 11:00] LABS: % Basophils 0.8 % (0-2); % Eosinophils 1.8 % (0-6); % Immature Granulocytes 0.2 % (0-0.5); % Lymphocytes 15.4 % (20.5-51.1); % Monocytes 4.6 % (1.7-9.3); % Neutrophils 77.2 % (42.2-75.2); Absolute Basophils 0.1 10^3/uL (0-0.2); Absolute Eosinophils 0.2 10^3/uL (0-0.7); Absolute Lymphocytes 1.5 10^3/uL (1.2-3.4); Absolute Monocytes 0.4 10^3/uL (0.1-0.6); Absolute Neutrophils 7.3 10^3/uL (1.4-6.5); Hematocrit 41.7 % (37.0-47.0); Mean Corp Hgb Conc. 33.6 g/dL (33.0-37.0); Mean Corpuscular Hgb 29.7 pg (27.0-31.0); Mean Corpuscular Volume 88.5 fL (81.0-99.0); Mean Platelet Volume 9.7 fL (7.4-10.4); Nucleated Red Blood Cells % 0 %; Platelet Count 274 10^3/uL (130-400); Red Blood Cell Count 4.71 10^6/uL (4.20-5.40); Red Cell Dist. Width 12.6 % (11.5-14.5); White Blood Cell Count 9.5 10^3/uL (4.8-10.8)
[2024-02-08 11:14] LABS: ALT (SGPT) 11 U/L (0-35); AST (SGOT) 22 U/L (14-36); Albumin 4.8 g/dl (3.5-5.0); Alkaline Phosphatase 120 U/L (38-126); Blood Urea Nitrogen 21 mg/dl (7-17); Calcium 9.6 mg/dl (8.4-10.2); Carbon Dioxide 29 mmol/L (22-30); Chloride 96 mmol/L (98-107); Estimated Creatinine Clearance 89 ml/min; Glucose 222 mg/dl (70-99); Potassium 3.9 mmol/L (3.5-5.1); Sodium 137 mmol/L (135-145); Total Bilirubin 0.5 mg/dl (0.2-1.3); Total Protein 7.3 g/dl (6.3-8.2); eGFR > 60.00
[2024-02-08] MEDS: NSS 250 IV (11:55)
--- NOTE | 2024-02-08 12:19 | W.CARD.TIKOS ---
Initiate Tikosyn
-
I verify that the patient has not taken any verapamil (Isoptin/Calan), ketoconazole (Nizoral), cimetidine (Tagamet), trimethoprim (Trimpex), trimethoprim/sulfamethoxazole (Bactrim), megesterol (Megace), prochlorperazine (Compazine),
hydrochlorothiazide (HCTZ), dolutegravir (Tivicay) or any Class I or Class III anti-arrhythmic within the last three days
AND
I verify that the patient has not taken amiodarone within the last THREE months, or that the patient's amiodarone plasma concentration is <0.3 mcg/mL. *see below
*of note, patient received a single dose of IV amiodarone bolus 01/13/24- discussed with MD team, amount was negligible, and does not require check or adjustment in plan.
Creatinine 0.6 mg/dL (0.6-1.0) 02/08/24 10:50
Estimated Creat Clear 89 ml/min 02/08/24 10:50
Does patient have a Ventricular Conduction Abnormality: No
I have assessed the baseline QTc interval (using QT for heart rate less than 60 bpm) and deemed the patient is appropriate for Dofetilide therapy. I understand that Tikosyn is contraindicated if the QTc is >440msec (500msec in patients with
ventricular conduction abnormalities).
Baseline QTc (in msec): 408
Ordering Physician: Herb Wu
--- NOTE | 2024-02-08 12:42 | CON.CAR ---
Addendum entered and electronically signed by Herb Wu MD 02/08/24 14:44:
78 yo female with PMH of paroxysmal Afib on eliquis (no missed doses), prior PVIx2, allergy to diltiazem, intolerance of metoprolol/amiodarone (hypotension) is admitted with recurrent A fib. She has Parkinson's with ambulatory dysfunction and also
autonomic dysfunction as well. She report typical SBP is 90s-100s. Rhythm is A fib with RVR, but she denies palps, CP, SOB, dizziness at rest. Exam with tachy, irregular rhythm; no murmurs, no edema. Cr Cl 89.
EP records reviewed. Plan is to admit for tikosyn. She was deemed not a good candidate for 3rd attempt at PVI.
Original Note:
Consultation
Consultation Request
Date/Time Consultation Requested: 02/08/24 1057
Date/Time Consultation Performed: 02/08/24 1220
Requesting Provider: Airam Colindres PA-C
Performing Provider: Sunshine BRO for Dr. Wu
Reason for Consultation: AFIB with RVR
Medical History
-
Chief Complaint: weakness, shakiness
History of Present Illness:
78 y/o female with PAF on Eliquis with hx PVI x2, last CORA/CV 01/16/24, HFpEF, hypertension, s/p bio MVR HUP 2020, COPD, and Parkinson's who is here for evaluation of shakiness and weakness since last evening with associated sweatiness. In the
hospital, she is seen to have afib with RVR. BP was on the low side, but has improved with 250 cc bolus fluids. She is in no distress at the time of my assessment. She had a CORA/CV last month, but is not on typical AFIB meds due to
allergies/intolerances (BB-BP too low, dilt- anaphylaxis, amiodarone- question of loss of consciousness? cornstarch allergy?). She has been taking Eliquis without missed doses since last admit.
Past Medical History
Past Medical History: Arrhythmias, CHF, HTN and Valvular Disease
Social History
Living: With Family
Family History
Family History: Reviewed & Not Pertinent
Allergies / Home Medications
Allergy/AdvReac Type Severity Reaction Status Date / Time
adhesive tape Allergy Rash Verified 02/08/24 10:30
aspirin Allergy Hives Verified 02/08/24 10:30
corn Allergy Hives Verified 02/08/24 10:30
corn syrup Allergy Hives Verified 02/08/24 10:30
diltiazem HCl [From Cardizem] Allergy ANGIOEDEMA Verified 02/08/24 10:30
latex Allergy Rash Verified 02/08/24 10:30
oxycodone [From Percocet] Allergy Hives Verified 02/08/24 10:30
silver Allergy hives,itchi Verified 02/08/24 10:30
ng,blisters
simvastatin [From Zocor] Allergy SEVERE Verified 02/08/24 10:30
MUSCLE
CRAMPING
Sulfa (Sulfonamide Allergy hives,itching, Verified 02/08/24 10:30
Antibiotics) blisters
�Medication �Instructions �Recorded �Confirmed �Type
clonazepam 1 mg tablet 2 mg PO DAILY@0000 Mental 08/19/20 02/08/24 History
Health/Anxiety
levocetirizine 5 mg tablet (Xyzal) 5 mg PO DAILY@0000 Allergies 08/19/20 02/08/24 History
omeprazole 40 mg capsule,delayed 40 mg PO DAILY@1600 08/19/20 02/08/24 History
release Gastrointestinal issue
oxycodone 5 mg tablet 5 mg PO BID@0800,1200 Pain 08/19/20 02/08/24 History
paroxetine HCl 30 mg tablet 30 mg PO DAILY@1200 Depression 08/19/20 02/08/24 History
apixaban 5 mg tablet (Eliquis) 5 mg PO BID@0800,2000 Blood clot 12/07/22 02/08/24 History
prevention/tx
carbidopa 25 mg-levodopa 100 mg 2 tab PO 5/D@00,08,12,16,20 12/07/22 02/08/24 History
tablet Neurological Condition
clonazepam 1 mg tablet 0.5 mg PO DAILY@1600 12/07/22 02/08/24 History
ropinirole 2 mg tablet,extended 2 mg PO BID@0000,0800 Neurological 12/07/22 02/08/24 History
release 24 hr Condition
torsemide 20 mg tablet 40 mg PO BID@0800,1400 Fluid 12/07/22 02/08/24 History
retention/Swelling
cholecalciferol (vitamin D3) 25 25 mcg PO DAILY@1200 01/13/24 02/08/24 History
mcg (1,000 unit) tablet
ferrous sulfate 325 mg (65 mg 325 mg PO DAILY@1400 01/13/24 02/08/24 History
iron) tablet (FeroSul)
gabapentin 250 mg/5 mL oral 300 mg PO TID@0800,1400,199901/13/24 02/08/24 History
solution
levothyroxine 100 mcg tablet 100 mcg PO DAILY@0700 01/13/24 02/08/24 History
oxycodone 5 mg tablet 5 mg PO BIDPRN PRN moderate pain 01/13/24 02/08/24 History
spironolactone 25 mg tablet 25 mg PO DAILY@199901/13/24 02/08/24 History
spironolactone 25 mg tablet 50 mg PO DAILY 01/13/24 02/08/24 History
vit C 250 mg-vit E 90 mg-zinc 40 1 tab PO BID@1200,199901/13/24 02/08/24 History
mg-copper 1 [id number]
capsule (PreserVision AREDS-2)
acetaminophen 650 mg 1,300 mg PO DAILY@119902/08/24 02/08/24 History
tablet,extended release (Tylenol
Arthritis Pain)
clonazepam 1 mg tablet 0.5 mg PO DAILYPRN PRN anxiety 02/08/24 02/08/24 History
coenzyme Q10 100 mg capsule 100 mg PO DAILY@199902/08/24 02/08/24 History
(CoQ-10)
hydrocortisone 2.5 % topical cream 1 applic topical BIDPRN PRN eczema 02/08/24 02/08/24 History
rash
nitrofurantoin 100 mg PO DAILY@1200 02/08/24 02/08/24 History
monohydrate/macrocrystals 100 mg
capsule (Macrobid)
potassium chloride 20 mEq 40 meq PO BID@1199,199902/08/24 02/08/24 History
tablet,extended release
ropinirole 2 mg tablet,extended 1 mg PO DAILYPRN PRN Parkinson's 02/08/24 02/08/24 History
release 24 hr symptoms
Review of Systems
-
History Source: Patient
All other systems: Negative unless noted
Constitutional: Other (weakness, shakiness, diaphoresis)
Physical Exam
Vital Signs
Temp Pulse Resp BP Pulse Ox
98.6 F 142 12 111/84 95
02/08/24 10:30 02/08/24 12:15 02/08/24 12:15 02/08/24 12:00 02/08/24 12:15
Lab Results
02/08/24 10:50
02/08/24 10:50
Physical Exam
General: Well Developed, Well Nourished and No Apparent Distress
HEENT: Normocephalic and Anicteric
Respiratory: Clear and Non Labored Respirations
Cardiac: Regular Rhythm
Skin: Warm and Dry
Neuro: AO x 3
Psych: Calm
Impression / Plan
-
Hx PAF, now recurrent AFIB with RVR:
-hx PVI's, CORA/CV. Medicine allergies/intolerances.
-Dr. Berry's most recent OV note reviewed and plan is for dofetilide- needs 6 doses in hospital. Dofetilide requires intensive monitoring. Check EKG 2 hours and maintain on telemetry.
-She has not missed any doses of Eliquis since previous CORA/CV 01/16/24. CORA showed no thrombus. Will need CV this admit if she doesn't convert.
-continue Eliquis for OAC.
HFpEF:
-chronic, stable
-follow volume
Hx Bio MVR:
-stable by recent CORA
Parkinson's disease:
-on medical therapy
Chronic UTI's:
-on abx
Data Reviewed
-
EKG: Tracing Personally Visualized and interpreted (AFIB with RVR 151 BPM)
Medical Tests (Nuc Med, Echo etc): Report Reviewed by me (echo 01/16/24: Normal left ventricular chamber size, myocardial thickness and systolic function. Left ventricular ejection 55 to 60%. Well-seated bioprosthetic mitral valve replacement
with trace central mitral regurgitation. Mild tricuspid regurgitation.)
Labs: Labs Reviewed by me
--- NOTE | 2024-02-08 13:35 | HPS.HSE ---
Addendum entered and electronically signed by Kwan Roche MD 02/08/24 16:01:
78-year-old female with a past medical history of paroxysmal atrial fibrillation s/p PVI x 2, intolerance to diltiazem/metoprolol/amiodarone, Parkinson's disease, autonomic dysfunction, and chronic narcotic dependent pain syndrome presents with
intermittent palpitations, and was found to have rapid atrial fibrillation. Patient was recently hospitalized, and discharged on 01/17/2024. At that time, she was found to be intolerant of amiodarone, Cardizem, and beta-blockers. She was
successfully cardioverted on 01/16/24. She reports going back into atrial fibrillation last night. Currently, she does report lightheadedness and dizziness with standing. She denies chest pain.
Appreciate cardiology input, who will start Tikosyn loading.
Hold tosemide and spironolactone due to soft BP.
Will order midodrine 5 mg for SBP less than 90.
I have personally seen and examined the patient, and agree with the plan of care as documented by Jacqueline Dye PA-C.
Advance care planning discussed, patient is a full code.
All other issues as outlined by the advanced care practitioner.
Total time spent to see the patient on the floor, examine the patient, review data and lab results, discuss treatment plan with patient, nursing staff around 76 minutes.
Original Note:
Family Physician
-
Family Physician: Yessica Martin
Chief Complaint
-
Rapid A-Fib
History of Present Illness
Patient is a 78 y/o female with a PMH of paroxysmal AFib on Eliquis, HTN, CVA, and Parkinson's disease who reports to the ED for elevated heart rate and diaphoresis. Patient states that last night her heart rate registered 130-140s and she went into
AFib at 11pm. She states that she became really diaphoretic, which is similar to the last time she went into AFib in December. Her daughter called Dr. Goodson who told them to come to the ED in the morning. She was last admitted in December for AFib with
RVR where she had a successful amiodarone drip and CORA cardioversion. She admits to occasional shortness of breath and shakiness but she can't tell if it has changed from her normal shakiness with her Parkinson's. She denies chest pain, visual
changes, LE edema, nausea, vomiting, or abdominal pain.
Medical History
Past Medical History
Past Medical History: Reports Other
Additional Past Medical History:
Chronic HFpEF
Paroxysmal Atrial Fibrillation
Right-Sided Ophthalmic Stroke
Mitral Regurgitation s/p Bioprosthetic Mitral Valve
Essential Hypertension
Hyperlipidemia
Hypothyroidism
Parkinson's Disease
Anxiety/Depression
Chronic Pain Syndrome with Opioid Dependence
Recurrent UTIs
Remote History of Seizure
Past Surgical History: Reports Other
Additional Past Surgical History:
Right Carotid Endarterectomy
Bioprosthetic Mitral Valve Replacement
Social History
Tobacco: Non-smoker
Alcohol: None
Drug: None
Personal:
Living: With Family
Family History
Family History: Not pertinent
Allergies / Home Medications
Allergies reflects when Allergies were last updated in [facility].
Home Medications with original date entered in [facility]
Allergy/Medication List:
Allergies
Allergy/AdvReac Type Severity Reaction Status Date / Time
adhesive tape Allergy Rash Verified 02/08/24 10:30
aspirin Allergy Hives Verified 02/08/24 10:30
corn Allergy Hives Verified 02/08/24 10:30
corn syrup Allergy Hives Verified 02/08/24 10:30
diltiazem HCl [From Cardizem] Allergy ANGIOEDEMA Verified 02/08/24 10:30
latex Allergy Rash Verified 02/08/24 10:30
oxycodone [From Percocet] Allergy Hives Verified 02/08/24 10:30
silver Allergy hives,itchi Verified 02/08/24 10:30
ng,blisters
simvastatin [From Zocor] Allergy SEVERE Verified 02/08/24 10:30
MUSCLE
CRAMPING
Sulfa (Sulfonamide Allergy hives,itching, Verified 02/08/24 10:30
Antibiotics) blisters
Home Medications
clonazepam 1 mg tablet 2 mg PO DAILY@0000 Mental Health/Anxiety 08/19/20
levocetirizine 5 mg tablet (Xyzal) 5 mg PO DAILY@0000 Allergies 08/19/20
omeprazole 40 mg capsule,delayed release 40 mg PO DAILY@1600 Gastrointestinal issue 08/19/20
oxycodone 5 mg tablet 5 mg PO BID@0800,1200 Pain 08/19/20
paroxetine HCl 30 mg tablet 30 mg PO DAILY@1200 Depression 08/19/20
apixaban 5 mg tablet (Eliquis) 5 mg PO BID@0800,2000 Blood clot prevention/tx 12/07/22
carbidopa 25 mg-levodopa 100 mg tablet 2 tab PO 5/D@00,08,12,16,20 Neurological Condition 12/07/22
clonazepam 1 mg tablet 0.5 mg PO DAILY@1600 12/07/22
ropinirole 2 mg tablet,extended release 24 hr 2 mg PO BID@0000,0800 Neurological Condition 12/07/22
torsemide 20 mg tablet 40 mg PO BID@0800,1400 Fluid retention/Swelling 12/07/22
cholecalciferol (vitamin D3) 25 mcg (1,000 unit) tablet 25 mcg PO DAILY@1200 01/13/24
ferrous sulfate 325 mg (65 mg iron) tablet (FeroSul) 325 mg PO DAILY@1400 01/13/24
gabapentin 250 mg/5 mL oral solution 300 mg PO TID@0800,1400,199901/13/24
levothyroxine 100 mcg tablet 100 mcg PO DAILY@0700 01/13/24
oxycodone 5 mg tablet 5 mg PO BIDPRN PRN moderate pain 01/13/24
spironolactone 25 mg tablet 25 mg PO DAILY@199901/13/24
spironolactone 25 mg tablet 50 mg PO DAILY 01/13/24
vit C 250 mg-vit E 90 mg-zinc 40 mg-copper 1 [id number] capsule (PreserVision AREDS-2) 1 tab PO BID@1199,199901/13/24
acetaminophen 650 mg tablet,extended release (Tylenol Arthritis Pain) 1,300 mg PO DAILY@119902/08/24
clonazepam 1 mg tablet 0.5 mg PO DAILYPRN PRN anxiety 02/08/24
coenzyme Q10 100 mg capsule (CoQ-10) 100 mg PO DAILY@199902/08/24
hydrocortisone 2.5 % topical cream 1 applic topical BIDPRN PRN eczema rash 02/08/24
nitrofurantoin monohydrate/macrocrystals 100 mg capsule (Macrobid) 100 mg PO DAILY@119902/08/24
potassium chloride 20 mEq tablet,extended release 40 meq PO BID@1199,199902/08/24
ropinirole 2 mg tablet,extended release 24 hr 1 mg PO DAILYPRN PRN Parkinson's symptoms 02/08/24
Review of Systems
-
A 12 point ROS was completed and negative except as noted: Yes
Constitutional: Denies Fever or Chills
Respiratory: Denies Cough or Trouble Breathing
Cardiac: Reports Palpitations; Denies Chest Pain
Physical Exam
Vital Signs
Vital Signs
Temp Pulse Resp BP Pulse Ox
98.6 F 153 25 92/71 94
02/08/24 10:30 02/08/24 13:15 02/08/24 13:15 02/08/24 13:00 02/08/24 13:15
Physical Exam
General: Comfortable and Conversant
HEENT: Anicteric and Moist mucous membranes
Respiratory: Clear and Non Labored Respirations
Cardiac: S1/S2, Irregular Rhythm and Tachycardia
GI: Soft and Non Tender
Rectal: Deferred by Provider
Musculoskeletal: No Clubbing, No Cyanosis and No Edema
Skin: Warm and Dry
Neuro: Awake, Alert, Oriented and Tremors
Psych: Calm
Laboratory Results
-
02/08/24 10:50
02/08/24 10:50
Laboratory Results
Total Bilirubin 0.5 mg/dl (0.2-1.3) 02/08/24 10:50
AST 22 U/L (14-36) 02/08/24 10:50
ALT 11 U/L (0-35) 02/08/24 10:50
Alkaline Phosphatase 120 U/L (38-126) 02/08/24 10:50
Data Reviewed
-
Lab Data: Labs Reviewed by me
Old Records: Reviewed
Impression/Plan
-
Atrial Fibrillation with Rapid Ventricular Response
-Consult Cardiology
-Continue Eliquis
-Plan for Tikosyn for rhythm control
Hypotension
-Hold diuretics
-Continue Midodrine prn
Chronic HFpEF
-Diuretics on hold until BP improves
-Monitor Is&Os and Daily Weights
Hypothyroidism
-Continue levothyroxine
Parkinson's Disease
-Continue Sinemet and ropinirole
Anxiety/Depression
-Continue clonazepam as prior to admission
Chronic Pain Syndrome with Opioid Dependence
-Continue gabapentin
-Continue oxycodone as prior to admission
Recurrent UTIs
-Continue nitrofurantoin
Other Noted History:
-Right-Sided Ophthalmic Stroke
-Mitral Regurgitation s/p Bioprosthetic Mitral Valve
-Remote History of Seizure
DVT proph: Eliquis
Code Status: Full Code
[2024-02-08] MEDS: PROTONIX 40 MG PO (17:12)
[2024-02-08] MEDS: KLONOPIN 0.5 MG PO (17:12)
[2024-02-08] MEDS: FEOSOL 325 MG PO (17:12)
[2024-02-08] MEDS: SINEMET 25-100 2 TABLET PO ×3 (17:12→23:11)
[2024-02-08] MEDS: NEURONTIN PO (18:02)
--- NOTE | 2024-02-08 18:21 | PTCARENOTE ---
Pt admitted from ED with rapid atrial fib. Heart rate 150's, BP 138/82, pt appears to be tolerating rate and rhythm, DEMETRIS Medel notified, plan to start Tikosyn at 20:00 unless she becomes symptomatic. Pt with Parkinsons, incontinent of urine,
using a purewick device as she does at home. Pt reports 5/10 right knee pain, she requests pain medication later tonight, right leg repositioned. Pt identified as a fall risk, precautions in place, pt is oriented and will call for assistance.
[2024-02-08] MEDS: ROXICODONE 5 MG PO (18:52)
--- NOTE | 2024-02-08 19:18 | PTCARENOTE ---
Pt. received at change of shift. Pt. seen and assessed. Daughter at bedside. Pt. complaining of pain at right knee, no other complaints. HR showing Rapid Afib in the 140s-150s. BP stable. Continuing to monitor pt.
[2024-02-08] MEDS: KCL 40 MEQ PO (19:54)
[2024-02-08] MEDS: OCUVITE SOFTGEL 1 CAP PO (19:55)
[2024-02-08] MEDS: ELIQUIS 5 MG PO (19:55)
[2024-02-08] MEDS: TIKOSYN 500 MCG PO (19:55)
[2024-02-08] MEDS: NEURONTIN 300 MG PO (19:56)
--- NOTE | 2024-02-08 22:10 | PTCARENOTE ---
Initial tikosyn dose given at 1999 on 02/08/24. EKG done two hours after. EKG showing prolonged QTC at 523. Dr. Pemberton made aware.
[2024-02-08] MEDS: ZYRTEC 5 MG PO (23:04)
[2024-02-08] MEDS: KLONOPIN 2 MG PO (23:11)
[2024-02-08] MEDS: NON-FORMULARY ITEM 2 MG PO (23:13)
[2024-02-09 03:47] VITALS: BP 95/76
[2024-02-09 03:59] VITALS: BMI 29.4
--- NOTE | 2024-02-09 04:01 | PTCARENOTE ---
AM rounds made on pt. Pt. sleeping. AOx3 when awaken. Tele showing Afib, HR in 100s-110s. No complaints of pain from pt. Pt. refusing q 2 turns. Skin remains intact. Continuing to monitor pt.
[2024-02-09 04:08] LABS: Hematocrit 37.8 % (37.0-47.0); Hemoglobin 12.7 g/dL (12.0-16.0); Mean Corp Hgb Conc. 33.6 g/dL (33.0-37.0); Mean Corpuscular Hgb 29.9 pg (27.0-31.0); Mean Corpuscular Volume 88.9 fL (81.0-99.0); Mean Platelet Volume 9.4 fL (7.4-10.4); Platelet Count 246 10^3/uL (130-400); Red Blood Cell Count 4.25 10^6/uL (4.20-5.40); Red Cell Dist. Width 12.6 % (11.5-14.5); White Blood Cell Count 8.9 10^3/uL (4.8-10.8)
[2024-02-09 04:54] LABS: Blood Urea Nitrogen 18 mg/dl (7-17); Calcium 9.4 mg/dl (8.4-10.2); Carbon Dioxide 27 mmol/L (22-30); Chloride 97 mmol/L (98-107); Estimated Creatinine Clearance 88 ml/min; Glucose 106 mg/dl (70-99); Potassium 4.4 mmol/L (3.5-5.1); Sodium 136 mmol/L (135-145); eGFR > 60.00
[2024-02-09] MEDS: SYNTHROID 100 MCG PO (05:02)
[2024-02-09 07:33] VITALS: BP 105/72
--- NOTE | 2024-02-09 08:02 | W.PN.HOSP.TC ---
Today's Communication/Plan
-
see bold
Assessment / Plan
Assessment / Plan
HPI: 78-year-old female with a past medical history of paroxysmal atrial fibrillation s/p PVI x 2, intolerance to diltiazem/metoprolol/amiodarone, Parkinson's disease, autonomic dysfunction, and chronic narcotic dependent pain syndrome presents with
intermittent palpitations, and was found to have rapid atrial fibrillation. Patient was recently hospitalized, and discharged on 01/17/2024. At that time, she was found to be intolerant of amiodarone, Cardizem, and beta-blockers. She was
successfully cardioverted on 01/16/24. She reports going back into atrial fibrillation last night. Currently, she does report lightheadedness and dizziness with standing. She denies chest pain.
Atrial Fibrillation with Rapid Ventricular Response
-Appreciate cardiology input, continue Tikosyn loading as per cardiology
-Continue Eliquis
-Monitor on telemetry, serial EKGs
Hypotension
-Continue holding spironolactone
-Continue Midodrine prn (has not required)
Chronic HFpEF
-Resume torsemide with hold parameters
-Monitor Is&Os and Daily Weights
Hypothyroidism
-Continue levothyroxine
Parkinson's Disease
-Continue Sinemet and ropinirole
Anxiety/Depression
-Continue clonazepam as prior to admission
Chronic Pain Syndrome with Opioid Dependence
-Continue gabapentin
-Continue oxycodone as prior to admission
Recurrent UTIs
-Continue nitrofurantoin
Other Noted History:
-Right-Sided Ophthalmic Stroke
-Mitral Regurgitation s/p Bioprosthetic Mitral Valve
-Remote History of Seizure
DVT proph: Eliquis
Code Status: Full Code
Total time spent to see the patient on the floor, examine the patient, review data and lab results, discuss treatment plan with patient, nursing staff around 38 minutes.
Physical Exam
General: No acute distress
HEENT: Normocephalic, Atraumatic, EOMI, MMM
Respiratory: Clear to Auscultation bilaterally
Cardiac: Normal S1/S2, tachycardic rate, irregular rhythm
GI: Soft, Nontender, Nondistended, Normal Bowel Sounds
Extremities: No Clubbing, Cyanosis, or Edema
Neuro: Nonfocal/Grossly Intact
Psych: Calm, Cooperative
Derm: No Visible lesions
Anticipated Discharge: 24 - 48 hours
Subjective/Interval History
-
Date of Service: February 09, 2024
Patient denies chest pain, shortness of breath, or palpitations. She feels better. No fever, no vomiting.
Objective Data
-
Labs:
Laboratory Results
02/09/24
03:55
WBC 8.9
Hgb 12.7
Hct 37.8
Plt Count 246
Sodium 136
Potassium 4.4
Chloride 97 L
Carbon Dioxide 27
BUN 18 H
Creatinine 0.5 L
Glucose 106 H
Calcium 9.4
Vital Signs:
Vital Signs
Temp Pulse Resp BP Pulse Ox
98.0 F 96 16 95/76 95
02/09/24 07:34 02/09/24 03:47 02/09/24 07:34 02/09/24 03:47 02/09/24 04:00
I&O
02/08/24 02/09/24 02/10/24
06:59 06:59 06:59
Intake Total 150 / 150
Output Total 750 / 750
Balance -600 / -600
[2024-02-09] MEDS: SINEMET 25-100 2 TABLET PO ×4 (08:50→20:34)
[2024-02-09] MEDS: ELIQUIS 5 MG PO ×2 (08:51→19:37)
[2024-02-09] MEDS: ROXICODONE 5 MG PO ×3 (08:51→18:23)
[2024-02-09] MEDS: NON-FORMULARY ITEM 2 MG PO (08:51)
[2024-02-09] MEDS: NEURONTIN 300 MG PO ×3 (08:52→19:38)
--- NOTE | 2024-02-09 09:04 | CM ---
Pricing on Dofetilide 500 mcq through the [facility], [place] pharmacy is $25.10 for a 30 day supply. They currently have it in stock, will need to reassess closer to discharge. Patient will need a 3 day supply upon discharge.
--- NOTE | 2024-02-09 09:53 | W.PN.CD ---
Today's Communication / Plan
-
- Reduce Tikosyn dose to 250 mcg q12h
Impression / Plan
-
Hx PAF, now recurrent AFIB with RVR:
-hx AF ablation - 06/06/20 - PVI, PWI, anterior mitral flutter ablation.
- Medicine allergies/intolerances.
-EKG after first dose Tikosyn showed elevated QTc
- Will reduce Tikosyn dose to 250 mcg q12h
- EKG showed NSR with first degree AV block and sinus tachcyardia.
-needs 6 doses in hospital.
-Dofetilide requires intensive monitoring. Check EKG 2 hours and maintain on telemetry.
-She has not missed any doses of Eliquis since previous CORA/CV 01/16/24. CORA showed no thrombus. Will need CV this admit if she doesn't convert.
-continue Eliquis for OAC.
HFpEF:
-chronic, stable
-follow volume
Hx Bio MVR:
-stable by recent CORA
Parkinson's disease:
-on medical therapy
Chronic UTI's:
-on abx
Physical Exam
Vital Signs/Labs
Vital Signs
Temp Pulse Resp BP Pulse Ox
98.0 F 95 16 105/72 94
02/09/24 07:34 02/09/24 08:00 02/09/24 07:34 02/09/24 07:33 02/09/24 08:33
02/08/24 02/09/24 02/10/24
06:59 06:59 06:59
Actual Weight 85.2 kg
02/09/24 03:55
02/09/24 03:55
Physical Exam
Constitutional: No acute distress and Comfortable
EENT: Anicteric and Moist mucous membranes
Cardiovascular: Rhythm & rate is regular, Pedal edema is absent, JVD pressure is normal and Systolic murmur present
Respiratory: Respiratory effort normal, Wheeze Absent and Crackles Absent
GI: Soft, Non tender and Normal bowel sounds
Neuro/Psych: Alert, Oriented, AO x 3, Motor deficits absent and Tremors
Other: Skin
Data Reviewed
-
Date of Service: February 09, 2024
Medical Decision Making: Reviewed Test Results, Tests Ordered, Independent Historian Assessment, Test Interpretation and Review of Case with other Provider
EKG: Tracing Personally Visualized and interpreted
Echo: Report Reviewed by me
Medical Tests (PFT, Pathology etc): Image Personally Visualized and interpreted
Labs: Labs Reviewed by me
Old Records: Reviewed
--- NOTE | 2024-02-09 10:01 | CM ---
Chart reviewed. Patient lives with her daughter and PARTHA in a ST in law suite, ramp access, RW, electric w/c, manual w/c, transport chair. Patient is current with [facility] and also has [employer] with [facility] 4 hrs a day/3 days a week. Referral
placed to resume services with [facility]. Plan is for the patient to return home with [facility].
[2024-02-09] MEDS: TIKOSYN 250 MCG PO ×2 (10:44→22:01)
[2024-02-09 11:35] VITALS: BP 96/60
[2024-02-09 11:37] VITALS: BP 102/72
[2024-02-09] MEDS: OCUVITE SOFTGEL 1 CAP PO ×2 (13:05→19:37)
[2024-02-09] MEDS: KCL 40 MEQ PO ×2 (13:05→19:37)
[2024-02-09] MEDS: FEOSOL 325 MG PO (13:05)
[2024-02-09] MEDS: PAXIL 30 MG PO (13:06)
[2024-02-09] MEDS: MACROBID 100 MG PO (13:06)
[2024-02-09] MEDS: VITAMIN D3 (cholecalciferol) 25 MCG PO (13:06)
[2024-02-09] MEDS: DEMADEX 40 MG PO (14:18)
[2024-02-09 15:49] VITALS: BP 120/71
[2024-02-09] MEDS: PROTONIX 40 MG PO (16:07)
[2024-02-09] MEDS: KLONOPIN 0.5 MG PO (16:07)
[2024-02-09] MEDS: TYLENOL 650 MG PO (18:23)
[2024-02-09 19:10] VITALS: BP 101/66
--- NOTE | 2024-02-09 19:12 | PTCARENOTE ---
Telemetry shows continued atrial fib at a rate @100-110 with occasional single PVC's. Tikosyn dose reduced to 250mcg today , QTc acceptable after that dose per . Plan for possible CV 02/09.
[2024-02-10] VITALS (8 sets, daily range): BP systolic 102–129; BP diastolic 58–88; BMI 29.3
[2024-02-10] MEDS: NON-FORMULARY ITEM 2 MG PO ×2 (00:05→08:17)
[2024-02-10] MEDS: ZYRTEC 5 MG PO ×2 (00:06→18:02)
[2024-02-10] MEDS: KLONOPIN 2 MG PO (00:06)
[2024-02-10] MEDS: SINEMET 25-100 2 TABLET PO ×5 (00:07→20:19)
--- NOTE | 2024-02-10 00:36 | PTCARENOTE ---
Pt received start of shift, HR afib. Tikosyn dose #3 administered, QTc 504.
[2024-02-10] MEDS: SYNTHROID 100 MCG PO (05:32)
[2024-02-10] MEDS: DEMADEX 40 MG PO ×2 (08:16→14:35)
[2024-02-10] MEDS: ELIQUIS 5 MG PO ×2 (08:16→20:13)
[2024-02-10] MEDS: ROXICODONE 5 MG PO ×3 (08:17→20:19)
[2024-02-10] MEDS: NEURONTIN 300 MG PO ×3 (08:17→20:14)
--- NOTE | 2024-02-10 09:32 | W.PN.CD ---
Today's Communication / Plan
-
cardioversion today ( procedure and risks reviewed with the patient and her daughter.
CV later today
will reassess QTC after she is back in sinus rhythm
Impression / Plan
-
Hx PAF, now recurrent AFIB with RVR:
-hx AF ablation - 06/06/20 - PVI, PWI, anterior mitral flutter ablation.
- Medicine allergies/intolerances.
-EKG after first dose Tikosyn showed elevated QTc
- redued Tikosyn dose to 250 mcg q12h
- AM ecg with borderline QTC, more challenging to measure with aflutter. Reassess after am cardioversion
-needs 6 doses in hospital.
-Dofetilide requires intensive monitoring. maintain on telemetry.
-continue Eliquis for OAC.
HFpEF:
-chronic, stable
-follow volume
Hx Bio MVR:
-stable by recent CORA
Parkinson's disease:
-on medical therapy
Chronic UTI's:
-on abx
Physical Exam
Vital Signs/Labs
Vital Signs
Temp Pulse Resp BP Pulse Ox
97.7 F 92 18 110/87 96
02/10/24 07:53 02/10/24 08:15 02/10/24 07:53 02/10/24 07:55 02/10/24 08:28
02/09/24 02/10/24 02/11/24
06:59 06:59 06:59
Actual Weight 85.2 kg 84.9 kg
02/09/24 03:55
02/09/24 03:55
Physical Exam
Constitutional: No acute distress and Other (parkinsons)
EENT: Anicteric
Cardiovascular: Rhythm/rate is irregular
Respiratory: Respiratory effort normal
GI: Soft
Neuro/Psych: Alert
Data Reviewed
-
Date of Service: February 10, 2024
Medical Decision Making: Reviewed Test Results and Review of Case with other Provider (nurse)
EKG: Tracing Personally Visualized and interpreted
Medical Tests (PFT, Pathology etc): Report Reviewed by me
Labs: Labs Reviewed by me
[2024-02-10] MEDS: TIKOSYN 250 MCG PO ×2 (10:39→21:33)
[2024-02-10] MEDS: OCUVITE SOFTGEL 1 CAP PO ×2 (12:46→20:13)
[2024-02-10] MEDS: VITAMIN D3 (cholecalciferol) 25 MCG PO (12:46)
[2024-02-10] MEDS: KCL 40 MEQ PO ×2 (12:46→20:14)
[2024-02-10] MEDS: MACROBID 100 MG PO (12:47)
[2024-02-10] MEDS: PAXIL 30 MG PO (12:47)
--- NOTE | 2024-02-10 13:17 | W.PN.HOSP.TC ---
Today's Communication/Plan
-
see bold
Assessment / Plan
Assessment / Plan
HPI: 78-year-old female with a past medical history of paroxysmal atrial fibrillation s/p PVI x 2, intolerance to diltiazem/metoprolol/amiodarone, Parkinson's disease, autonomic dysfunction, and chronic narcotic dependent pain syndrome presents with
intermittent palpitations, and was found to have rapid atrial fibrillation. Patient was recently hospitalized, and discharged on 01/17/2024. At that time, she was found to be intolerant of amiodarone, Cardizem, and beta-blockers. She was
successfully cardioverted on 01/16/24. She reports going back into atrial fibrillation last night. Currently, she does report lightheadedness and dizziness with standing. She denies chest pain.
Atrial Fibrillation with Rapid Ventricular Response
-Appreciate cardiology input, s/p CV on 02/10/24
-Continue Tikosyn loading as per cardiology
-Continue Eliquis
-Monitor on telemetry, serial EKGs
Hypotension
-Resolved
Chronic HFpEF
-Resumed torsemide, spironolactone with hold parameters
-Monitor Is&Os and Daily Weights
Hypothyroidism
-Continue levothyroxine
Parkinson's Disease
-Continue Sinemet and ropinirole
Anxiety/Depression
-Continue clonazepam as prior to admission
Chronic Pain Syndrome with Opioid Dependence
-Continue gabapentin
-Continue oxycodone as prior to admission
Recurrent UTIs
-Continue nitrofurantoin
Other Noted History:
-Right-Sided Ophthalmic Stroke
-Mitral Regurgitation s/p Bioprosthetic Mitral Valve
-Remote History of Seizure
DVT proph: Eliquis
Code Status: Full Code
Total time spent to see the patient on the floor, examine the patient, review data and lab results, discuss treatment plan with patient, nursing staff around 37 minutes.
Physical Exam
General: No acute distress
HEENT: Normocephalic, Atraumatic, EOMI, MMM
Respiratory: Clear to Auscultation bilaterally
Cardiac: Normal S1/S2, RRR
GI: Soft, Nontender, Nondistended, Normal Bowel Sounds
Extremities: No Clubbing, Cyanosis, or Edema
Neuro: Nonfocal/Grossly Intact
Psych: Calm, Cooperative
Derm: No Visible lesions
Anticipated Discharge: 24 - 48 hours
Subjective/Interval History
-
Date of Service: February 10, 2024
Palp resolved. No CP/SOB/LH/dizziness. No fever, no vomiting.
Objective Data
-
Vital Signs:
Vital Signs
Temp Pulse Resp BP Pulse Ox
97.7 F 92 18 110/87 96
02/10/24 07:53 02/10/24 08:15 02/10/24 07:53 02/10/24 07:55 02/10/24 08:28
I&O
02/09/24 02/10/24 02/11/24
06:59 06:59 06:59
Intake Total 150 / 150
Output Total 750 / 750 1150 / 1150 500 / 500
Balance -600 / -600 -1150 / -1150 -500 / -500
[2024-02-10] MEDS: FEOSOL 325 MG PO (14:35)
[2024-02-10] MEDS: PROTONIX 40 MG PO (16:10)
[2024-02-10] MEDS: KLONOPIN 0.5 MG PO (16:10)
--- NOTE | 2024-02-10 18:14 | PTCARENOTE ---
Pt had a cardioversion to sinus rhythm with first degree AV block, occasional single PVC's and couplets noted at a rate @80's. Tikosyn dose #4 given , QTc checked by and corrected to 467ms, plan to give dose #5 tonight. Pt recovered from CV
procedure without problem.
[2024-02-10] MEDS: ALDACTONE 25 MG PO (20:14)
[2024-02-10] MEDS: TYLENOL 650 MG PO (20:20)
[2024-02-11 00:09] VITALS: BP 126/57
[2024-02-11] MEDS: ZYRTEC 5 MG PO (00:09)
[2024-02-11] MEDS: KLONOPIN 2 MG PO (00:09)
[2024-02-11] MEDS: NON-FORMULARY ITEM 2 MG PO ×2 (00:10→08:20)
[2024-02-11] MEDS: SINEMET 25-100 2 TABLET PO ×3 (00:13→12:09)
[2024-02-11 04:52] VITALS: BP 111/48
[2024-02-11 06:00] VITALS: BMI 29.6
[2024-02-11] MEDS: SYNTHROID 100 MCG PO (06:17)
[2024-02-11 07:30] VITALS: BP 119/65
[2024-02-11] MEDS: TIKOSYN 250 MCG PO (08:15)
[2024-02-11] MEDS: DEMADEX 40 MG PO (08:15)
[2024-02-11] MEDS: ELIQUIS 5 MG PO (08:15)
[2024-02-11] MEDS: ALDACTONE 50 MG PO (08:16)
[2024-02-11] MEDS: ROXICODONE 5 MG PO ×2 (08:16→11:52)
[2024-02-11] MEDS: NEURONTIN 300 MG PO (08:16)
--- NOTE | 2024-02-11 08:42 | W.PN.HOSP.TC ---
Today's Communication/Plan
-
Cleared by cardiology for discharge today
Assessment / Plan
Assessment / Plan
HPI: 78-year-old female with a past medical history of paroxysmal atrial fibrillation s/p PVI x 2, intolerance to diltiazem/metoprolol/amiodarone, Parkinson's disease, autonomic dysfunction, and chronic narcotic dependent pain syndrome presents with
intermittent palpitations, and was found to have rapid atrial fibrillation. Patient was recently hospitalized, and discharged on 01/17/2024. At that time, she was found to be intolerant of amiodarone, Cardizem, and beta-blockers. She was
successfully cardioverted on 01/16/24. She reports going back into atrial fibrillation last night. Currently, she does report lightheadedness and dizziness with standing. She denies chest pain.
Atrial Fibrillation with Rapid Ventricular Response
-Appreciate cardiology input, s/p CV on 02/10/24
-QTc acceptable on Tikosyn, medically stable for discharge today
-Continue Eliquis. Follow-up with cardiology in the office
Hypotension
-Resolved
Chronic HFpEF
-Resumed torsemide, spironolactone with hold parameters
-Monitor Is&Os and Daily Weights
Hypothyroidism
-Continue levothyroxine
Parkinson's Disease
-Continue Sinemet and ropinirole
Anxiety/Depression
-Continue clonazepam as prior to admission
Chronic Pain Syndrome with Opioid Dependence
-Continue gabapentin
-Continue oxycodone as prior to admission
Recurrent UTIs
-Continue nitrofurantoin
Other Noted History:
-Right-Sided Ophthalmic Stroke
-Mitral Regurgitation s/p Bioprosthetic Mitral Valve
-Remote History of Seizure
DVT proph: Eliquis
Code Status: Full Code
Physical Exam
General: No acute distress
HEENT: Normocephalic, Atraumatic, EOMI, MMM
Respiratory: Clear to Auscultation bilaterally
Cardiac: Normal S1/S2, RRR
GI: Soft, Nontender, Nondistended, Normal Bowel Sounds
Extremities: No Clubbing, Cyanosis, or Edema
Neuro: Nonfocal/Grossly Intact
Psych: Calm, Cooperative
Derm: No Visible lesions
Anticipated Discharge: Today
Subjective/Interval History
-
Date of Service: February 11, 2024
Patient reports feeling well. No chest pain, shortness of breath, or palpitations. No lightheadedness or dizziness. No fever or vomiting.
Objective Data
-
Vital Signs:
Vital Signs
Temp Pulse Resp BP Pulse Ox
97.7 F 52 16 119/65 97
02/11/24 07:28 02/11/24 05:00 02/11/24 07:28 02/11/24 08:16 02/11/24 07:28
I&O
02/10/24 02/11/24 02/12/24
06:59 06:59 06:59
Intake Total 240 / 240
Output Total 1150 / 1150 2049
Balance -1150 / -1150 -1810 / -0
--- NOTE | 2024-02-11 10:18 | W.PN.CD ---
Addendum entered and electronically signed by Herb Wu MD 02/11/24 10:40:
QTc ~490, and QTc in sinus prior to tikosyn was ~430. Acceptable. Stable for d/c on 250mcg bid.
Original Note:
Today's Communication / Plan
-
she received her 6th dose of tikosyn 250mcg q12hr this AM
discharge planning pending 2hr post EKG this AM
Impression / Plan
-
Hx PAF, now recurrent AFIB with RVR:
-eliquis 5mg bid for OAC
-hx AF ablation - 06/06/20 - PVI, PWI, anterior mitral flutter ablation.
- Medicine allergies/intolerances.
-EKG after first dose Tikosyn showed elevated QTc
- reduced Tikosyn dose to 250 mcg q12h
-she received her 6th dose of tikosyn 250mcg q12hr this AM
-discharge planning pending 2hr post EKG this AM
HFpEF:
-chronic, stable
-continue PO diuretic
Hx Bio MVR:
-stable by recent CORA
Parkinson's disease:
-on medical therapy
Chronic UTI's:
-on abx
Physical Exam
Vital Signs/Labs
Vital Signs
Temp Pulse Resp BP Pulse Ox
97.7 F 52 16 119/65 97
02/11/24 07:28 02/11/24 05:00 02/11/24 07:28 02/11/24 08:16 02/11/24 07:28
02/10/24 02/11/24 02/12/24
06:59 06:59 06:59
Actual Weight 85.5 kg
02/09/24 03:55
02/09/24 03:55
Physical Exam
Constitutional: No acute distress and Comfortable
EENT: Moist mucous membranes
Cardiovascular: Rhythm & rate is regular, Pedal edema is absent, JVD pressure is normal and Systolic murmur absent
Respiratory: Respiratory effort normal and Lungs clear to auscul.
GI: Soft and Distention absent
Neuro/Psych: AO x 3
Data Reviewed
-
Date of Service: February 11, 2024
EKG: Other (sinus 70s, occasional PVC's)
[2024-02-11 11:50] VITALS: BP 104/39
[2024-02-11 11:51] VITALS: BP 104/39
[2024-02-11] MEDS: MACROBID 100 MG PO (11:52)
[2024-02-11] MEDS: KCL 40 MEQ PO (11:52)
[2024-02-11] MEDS: VITAMIN D3 (cholecalciferol) 25 MCG PO (11:52)
[2024-02-11] MEDS: PAXIL 30 MG PO (11:52)
[2024-02-11] MEDS: OCUVITE SOFTGEL 1 CAP PO (11:52)
--- NOTE | 2024-02-11 13:47 | PTCARENOTE ---
02/11/24 1300 Pt received 6th dose of Tikosyn this AM with EKG 2 hours post. Pt remains NSR-SB with 1st degree heart block. Cardiology reviewed and a d/c order was written. Telem pack and IV removed. Reviewed discharge instructions with patient and
patient's daughter. Reviewed all follow up care, medications, and answered any questions. Support given. patient escorted out in wheelchair by PCT.
--- NOTE | 2024-02-11 14:24 | W.DCSUMMARY ---
Discharge Summary
Discharge Data
Date of Admission: 02/08/24
Date of Discharge: 02/11/24
-
Pending Results: No
Hospital Course
Discharge diagnosis:
Atrial fibrillation with rapid ventricular response
Transient hypotension
Chronic heart failure with preserved ejection fraction
Parkinson's disease
Hypothyroidism
Anxiety/depression
Chronic pain syndrome with opioid dependency
Consults: Cardiology
Procedures:
02/10/2024 successful cardioversion
Hospital Course:
78-year-old female with a past medical history of paroxysmal atrial fibrillation s/p PVI x 2, intolerance to diltiazem/metoprolol/amiodarone, Parkinson's disease, autonomic dysfunction, and chronic narcotic dependent pain syndrome Was admitted for
rapid atrial fibrillation. Patient was seen in conjunction with cardiology. She was loaded with Tikosyn.
Patient had transient hypotension upon admission. Her torsemide and spironolactone were held. After her heart rate improved, her blood pressure improved, and her medications were resumed.
She underwent successful cardioversion on 02/10/2024, and was in normal sinus rhythm. Her QTc is acceptable on Tikosyn. She is medically stable and cleared by cardiology for discharge. She needs to follow-up with cardiology in the office.
Disposition: Home with home care
Discharge planning: Required 38 minute
Discharge Plan
-
Patient Disposition: Home with Home Care
Discharge Diagnosis/Procedures: Rapid atrial fibrillation status post cardioversion, transient hypotension, chronic heart failure, Parkinson's disease
Condition: Good
Diet: Low Fat, Low Cholesterol and 2 Gram Sodium
Activity: As tolerated
Driving Restrictions: As prior to admission
Referrals:
[facility] [Outside]
Yessica Martin CRNP [Family Provider] -
Prescriptions:
New
dofetilide 250 mcg Capsule
250 mcg PO Q12 30 Days Qty: 60 0RF
Continued
clonazepam 1 MG tablet
2 mg PO DAILY@0000
omeprazole 40 MG capsule,delayed release(DR/EC)
40 mg PO DAILY@1600
paroxetine HCl 30 MG tablet
30 mg PO DAILY@1200
oxycodone 5 MG tablet
5 mg PO BID@0800,1200
levocetirizine [Xyzal] 5 MG tablet
5 mg PO DAILY@0000
torsemide 20 mg Tablet
40 mg PO BID@0800,1400
clonazepam 1 mg Tablet
0.5 mg PO DAILY@1600
carbidopa-levodopa 25-100 mg tablet
2 tab PO 5/D@00,08,12,16,20
ropinirole 2 mg tablet extended release 24 hr
2 mg PO BID@0000,0800
Eliquis 5 MG tablet
5 mg PO BID@08,1999
gabapentin 250 mg/5 mL solution
300 mg PO TID@0800,1399,1999
spironolactone 25 mg tablet
50 mg PO DAILY
spironolactone 25 mg tablet
25 mg PO DAILY@1999
levothyroxine 100 mcg tablet
100 mcg PO DAILY@0700
ferrous sulfate [FeroSul] 325 mg (65 mg iron) tablet
325 mg PO DAILY@1400
oxycodone 5 mg tablet
5 mg PO BIDPRN PRN (Reason: moderate pain)
cholecalciferol (vitamin D3) 25 mcg (1,000 unit) Tablet
25 mcg PO DAILY@1200
PreserVision AREDS-2 250-90-40-1 mg Capsule
1 tab PO BID@1199,1999
clonazepam 1 mg Tablet
0.5 mg PO DAILYPRN PRN (Reason: anxiety)
acetaminophen [Tylenol Arthritis Pain] 650 mg Tablet Extended Release
1,300 mg PO DAILY@1200
hydrocortisone 2.5 % Cream
1 applic TOPICAL BIDPRN PRN (Reason: eczema rash)
coenzyme Q10 [CoQ-10] 100 mg Capsule
100 mg PO DAILY@1999
nitrofurantoin monohyd/m-cryst [Macrobid] 100 mg Capsule
100 mg PO DAILY@1199
ropinirole 2 mg Tablet Extended Release 24 Hr
1 mg PO DAILYPRN PRN (Reason: Parkinson's symptoms)
potassium chloride 20 mEq tablet extended release
40 meq PO BID@1199,1999
Discharge Orders:
Discharge Patient (As Directed); Ordered 02/11/24
Ordered By: Kwan Roche
Care Plan Goals
Care Plan Goals:
Problem: Readiness for enhanced knowledge related to diagnosis and treatment plan
Goal: Understand your diagnosis and treatment plan needs, including medications if applicable.
Instructions: Know your diagnosis, underlying causes and treatment plan options, including medications if applicable. Consult with your health care team to learn about your diagnosis and treatment plan, including medications if applicable.
Discharge Date and Time
Discharge Date/Time: 02/11/24 13:53
Print Language: MALTESE
== END 2024-02-11 13:53 | disposition home health service (06) | DRG 309 ==
LOC: IVU 14:08
PROVIDERS: Internal Medicine Cardiovascular Disease; Physician Assistant; Physician Assistant Medical; ADMITTING PHYSICIAN Family Medicine; CONSULT PHYSICIAN Internal Medicine; EMERGENCY PHYSICIAN Student in an Organized Health Care Education/Training Program; FAMILY PHYSICIAN Nurse Practitioner Primary Care
PROC: 5A2204Z Restoration of Cardiac Rhythm, Single (ICD-10-PCS; 2024-02-10)
DX: I48.0 Paroxysmal atrial fibrillation (principal); F11.20 Opioid dependence, uncomplicated; I50.32 Chronic diastolic (congestive) heart failure; N39.0 Urinary tract infection, site not specified; I11.0 Hypertensive heart disease with heart failure; Z95.3 Presence of xenogenic heart valve; G20.A1 Parkinson's disease without dyskinesia, without mention of fluctuations; I34.0 Nonrheumatic mitral (valve) insufficiency; E03.9 Hypothyroidism, unspecified; F32.A Depression, unspecified; I95.9 Hypotension, unspecified; E78.5 Hyperlipidemia, unspecified; F41.9 Anxiety disorder, unspecified; F45.8 Other somatoform disorders; G89.4 Chronic pain syndrome; R26.89 Other abnormalities of gait and mobility; Z79.01 Long term (current) use of anticoagulants; Z79.2 Long term (current) use of antibiotics; Z79.890 Hormone replacement therapy; Z79.899 Other long term (current) drug therapy; Z86.73 Personal history of transient ischemic attack (TIA), and cerebral infarction without residual deficits; Z87.440 Personal history of urinary (tract) infections; Z88.2 Allergy status to sulfonamides; Z88.6 Allergy status to analgesic agent; Z88.8 Allergy status to other drugs, medicaments and biological substances
CPT/HCPCS: 71045; 73552; 73590; 80048; 80053; 85025; 85027; 92960; 93005; 96360; 99285

== ENCOUNTER 2024-09-12 23:50 | Inpatient (IN) | payer MEDICARE, OTHER, SELFPAY ==
[2024-09-12 16:37] VITALS: BP 112/79
[2024-09-12 17:09] LABS: % Basophils 0.8 % (0-2); % Eosinophils 2.2 % (0-6); % Immature Granulocytes 0.2 % (0-0.5); % Lymphocytes 15.7 % (20.5-51.1); % Neutrophils 75.1 % (42.2-75.2); Absolute Basophils 0.1 10^3/uL (0-0.2); Absolute Eosinophils 0.2 10^3/uL (0-0.7); Absolute Lymphocytes 1.6 10^3/uL (1.2-3.4); Absolute Monocytes 0.6 10^3/uL (0.1-0.6); Absolute Neutrophils 7.4 10^3/uL (1.4-6.5); Hematocrit 41.1 % (37.0-47.0); Mean Corp Hgb Conc. 31.6 g/dL (33.0-37.0); Mean Corpuscular Hgb 30.8 pg (27.0-31.0); Mean Corpuscular Volume 97.4 fL (81.0-99.0); Mean Platelet Volume 9.3 fL (7.4-10.4); Nucleated Red Blood Cells % 0 %; Platelet Count 252 10^3/uL (130-400); Red Blood Cell Count 4.22 10^6/uL (4.20-5.40); Red Cell Dist. Width 12.4 % (11.5-14.5); White Blood Cell Count 9.9 10^3/uL (4.8-10.8)
[2024-09-12 17:16] LABS: ALT (SGPT) < 10 U/L (0-35); AST (SGOT) 17 U/L (14-36); Alkaline Phosphatase 82 U/L (38-126); Blood Urea Nitrogen 16 mg/dl (7-17); Calcium 9.4 mg/dl (8.4-10.2); Carbon Dioxide 35 mmol/L (22-30); Chloride 91 mmol/L (98-107); Glucose 92 mg/dl (70-99); Potassium 4.7 mmol/L (3.5-5.1); Sodium 135 mmol/L (135-145); Total Bilirubin 0.9 mg/dl (0.2-1.3); Total Protein 7.6 g/dl (6.3-8.2); eGFR > 60.00
[2024-09-12 17:28] LABS: Troponin I < 0.012 ng/ml
[2024-09-12 17:47] LABS: NT-proBNP 2380 pg/ml
[2024-09-12 19:13] VITALS: BP 103/69
[2024-09-12 21:51] VITALS: BP 116/76
[2024-09-12] MEDS: LASIX 40 MG IV ×2 (21:57→23:31)
[2024-09-12 22:00] VITALS: BP 106/73
--- NOTE | 2024-09-12 22:10 | ED.GENMED ---
History of Present Illness
General
Chief Complaint: Cardiac Symptoms
Source: patient and family
Exam Limitations: none
Time Seen by Provider: 09/12/24 20:56
Nursing documentation reviewed up to this point in time: agreed with
History of Present Illness
History of Present Illness:
I resent 79-year-old female with past medical history of A-fib currently on Eliquis, Parkinson's, hypertension previous history of heart failure presenting to the emergency department with worsening generalized weakness fatigue and shortness of
breath. Denies specific chest pain nausea vomiting recent illness also has had some minor urinary symptoms as well.
Past History
Past History
ED Past Medical History: Arrthythmia, HTN, Other (non-compliance w/ med- took another person's thyroid med), Other ('Parkinson's') and Other (Seizure D/O)
ED Past Surgical History: Cardiac (R carotid endarterectomy, mitral valve replacement) and Gynecological
Social History
Tobacco: Non-smoker
Alcohol: None
Drug: None
Personal:
Living: with family
Employment: Employed
Family History
Family History: Other (reviewed and non-contributory)
Review of Systems
Review of Systems
Allergies reviewed?: Yes
All Other Systems: ROS reviewed and negative except as documented in HPI and ROS
Phy Exam
Physical Exam
Physical Exam:
GENERAL: Alert , in no apparent distress
EYE: pupils equal and reactive
NECK: Supple, no significant adenopathy.
ENT: o/p clr, mmm.
CARDIAC: Rapid heart rate
LUNGS: Clear breath sounds bilaterally, no acute respiratory distress, no wheezes/rales/rhonchi
ABDOMEN: Soft, without focal tenderness, no r/g, no cvat
NEUROLOGICAL: Alert and oriented, no focal neuro deficits
SKIN: Warm and dry, skin intact.
MUSCULOSKELETAL: No edema, well perfused.
PSYCH: Normal and appropriate interaction.
Course
Orders/Labs/Results
Orders:
Orders
09/12/24 16:29
ECG [Electrocardiogram (*1)] Urgent
Reason for Study: Atrial Fibrillation
EKG- Treatment ONCE
09/12/24 16:49
Complete Blood Count/With Diff Urgent
Comprehensive Metabolic Panel Urgent
Pro-BNP [NT-proBNP] Urgent
Troponin I Urgent
09/12/24 20:57
Urinalysis Reflex To Culture Urgent
09/12/24 21:06
Chest [CR Chest - 2 Views ] Urgent
Comment:
Reason For Exam: sob
09/12/24 21:07
Vital Signs- Treatment ONCE
Frequency: q30m
09/12/24 21:48
Furosemide [Lasix] 40 mg IV NOW STA
Abnormal Lab Results
09/12/24
16:49
MCHC 31.6 L g/dL
(33.0-37.0)
Absolute Neuts (auto) 7.4 H 10^3/uL
(1.4-6.5)
Lymphocytes % 15.7 L %
(20.5-51.1)
Chloride 91 L mmol/L
(98-107)
Carbon Dioxide 35 H mmol/L
(22-30)
09/12/24 16:49
09/12/24 16:49
Vital Signs
Initial and Last Documented VS:
Initial Vital Signs
Temp Pulse Resp BP Pulse Ox
97.5 F 111 20 112/79 95
09/12/24 16:37 09/12/24 16:37 09/12/24 16:37 09/12/24 16:37 09/12/24 16:37
Last Documented Vital Signs
Temp Pulse Resp BP Pulse Ox
98.2 F 109 16 106/73 92
09/12/24 19:13 09/12/24 22:00 09/12/24 22:10 09/12/24 22:00 09/12/24 22:00
MDM/Problems Addressed
MDM/Problems Addressed:
79-year-old female presenting to the emergency department generalized weakness fatigue shortness of breath worsening over the past week. Here she is mildly tachycardic blood pressure in the 110s over 70s. She does have some respiratory noise when
breathing. Here her EKG showing a flutter no obvious ischemic changes otherwise. BNP slightly elevated in the 1999. She has had lower numbers in the past. Troponin is not elevated. Otherwise chest x-ray with possible edema and increased
vasculature. Concern for heart failure exacerbation and also persist point. Plan to admit for further monitoring diuresis and cardiology assessment
*Critical Care Note
Total Time (30-74mins, 75-104mins- exclusive of procedures): Not Applicable
ED Attending Note
-
Portions of this chart may have been created with voice recognition software.� Occasional wrong word or��sound alike� substitutions may have occurred due to the inherent limitations of voice recognition software.
Discharge Plan
Departure
Patient Disposition: Admit
Date of Disposition: 09/12/24
Time of Disposition: 22:12
Admit to: Telemetry
Admit to doctor: Michael
Presentation/result/management discussed w/ accepting MD/DO: Hospitalist
Patient with high blood pressure during this ER visit?: No
Condition: Good
Covid-19: Not Applicable
Discharge Problem:
Atrial flutter, Heart failure
Prescriptions:
No Action
clonazepam 1 MG tablet
2 mg PO DAILY@0000
omeprazole 40 MG capsule,delayed release(DR/EC)
40 mg PO DAILY@1600
paroxetine HCl 30 MG tablet
30 mg PO DAILY@1200
oxycodone 5 MG tablet
5 mg PO BID@0800,1200
levocetirizine [Xyzal] 5 MG tablet
5 mg PO DAILY@0000
torsemide 20 mg Tablet
40 mg PO BID@0800,1400
clonazepam 1 mg Tablet
0.5 mg PO DAILY@1600
carbidopa-levodopa 25-100 mg tablet
2 tab PO 5/D@00,08,12,16,20
ropinirole 2 mg tablet extended release 24 hr
2 mg PO BID@0000,0800
Eliquis 5 MG tablet
5 mg PO BID@799,1999
gabapentin 250 mg/5 mL solution
300 mg PO TID@0800,1399,1999
spironolactone 25 mg tablet
50 mg PO DAILY
spironolactone 25 mg tablet
25 mg PO DAILY@1999
levothyroxine 100 mcg tablet
100 mcg PO DAILY@0700
ferrous sulfate [FeroSul] 325 mg (65 mg iron) tablet
325 mg PO DAILY@1400
oxycodone 5 mg tablet
5 mg PO BIDPRN PRN (Reason: moderate pain)
cholecalciferol (vitamin D3) 25 mcg (1,000 unit) Tablet
25 mcg PO DAILY@1200
PreserVision AREDS-2 250-90-40-1 mg Capsule
1 tab PO BID@
clonazepam 1 mg Tablet
0.5 mg PO DAILYPRN PRN (Reason: anxiety)
acetaminophen [Tylenol Arthritis Pain] 650 mg Tablet Extended Release
1,300 mg PO DAILY@1199
hydrocortisone 2.5 % Cream
1 applic TOPICAL BIDPRN PRN (Reason: eczema rash)
coenzyme Q10 [CoQ-10] 100 mg Capsule
100 mg PO DAILY@1999
nitrofurantoin monohyd/m-cryst [Macrobid] 100 mg Capsule
100 mg PO DAILY@1199
ropinirole 2 mg Tablet Extended Release 24 Hr
1 mg PO DAILYPRN PRN (Reason: Parkinson's symptoms)
potassium chloride 20 mEq tablet extended release
40 meq PO BID@
dofetilide 250 mcg Capsule
250 mcg PO Q12 30 Days Qty: 60 0RF
Referrals:
Yessica Martin CRNP [Family Provider] -
Interventions
Interventions:
*Risk Screen - Suicide Last Done: 09/12/24 16:37
*General Assessment Last Done: 09/12/24 21:33
*Neglect/Abuse Screening Last Done: 09/12/24 21:50
*ED COVID-19 Vaccine History Last Done: 09/12/24 21:33
ED- Pulmonary Assessment Last Done: 09/12/24 21:33
ED- Cardiac Assessment Last Done: 09/12/24 21:34
Discharge Date and Time
Print Language: URDU
--- NOTE | 2024-09-12 22:17 | HPS.HSE ---
Family Physician
-
Family Physician: Yessica Martin
Chief Complaint
-
generalized weakness, fatigue and shortness of breath
History of Present Illness
Patient is a 79-year-old female with past medical history significant for chronic HFpEF, paroxysmal atrial fibrillation, essential hypertension, hyperlipidemia, hypothyroidism, Parkinson's Disease and anxiety/depression who presented to [facility] ED for evaluation of generalized weakness, fatigue and shortness of breath. Patient reports that over past two weeks she has noticed an increase in generalized weakness resulting in 2 falls, denies head strike or injury. She also notes that
she has had pounding in her chest associated with shortness of breath over the past two days. Patient reports a 8 pound weight gain over 3 or so days. Patient does report that pounding and shortness of breath improved with rest. She stated that she
had a bout of diarrhea that lasted 3 days approximately 2 weeks ago. Patient denies any dizziness, cough, chest pain, nausea, vomiting, constipation or urinary symptoms.
Medical History
Past Medical History
Past Medical History: Reports Other
Additional Past Medical History:
Chronic HFpEF
Paroxysmal Atrial Fibrillation
Right-Sided Ophthalmic Stroke
Mitral Regurgitation s/p Bioprosthetic Mitral Valve
Essential Hypertension
Hyperlipidemia
Hypothyroidism
Parkinson's Disease
Anxiety/Depression
Chronic Pain Syndrome with Opioid Dependence
Recurrent UTIs
Remote History of Seizure
Past Surgical History: Reports Other
Additional Past Surgical History:
Right Carotid Endarterectomy
Bioprosthetic Mitral Valve Replacement
Social History
Tobacco: Former Smoker (quit 40 years ago )
Alcohol: None
Drug: None
Personal:
Living: With Family
Employment: Retired
Family History
Family History: Not pertinent
Allergies / Home Medications
Allergies reflects when Allergies were last updated in [employer].
Home Medications with original date entered in [employer]
Allergy/Medication List:
Allergies
Allergy/AdvReac Type Severity Reaction Status Date / Time
adhesive tape Allergy Rash Verified 09/12/24 16:38
aspirin Allergy Hives Verified 09/12/24 16:38
corn Allergy Hives Verified 09/12/24 16:38
corn syrup Allergy Hives Verified 09/12/24 16:38
diltiazem HCl [From Cardizem] Allergy ANGIOEDEMA Verified 09/12/24 16:38
latex Allergy Rash Verified 09/12/24 16:38
oxycodone [From Percocet] Allergy Hives Verified 09/12/24 16:38
silver Allergy hives,itchi Verified 09/12/24 16:38
ng,blisters
simvastatin [From Zocor] Allergy SEVERE Verified 09/12/24 16:38
MUSCLE
CRAMPING
Sulfa (Sulfonamide Allergy hives,itching, Verified 09/12/24 16:38
Antibiotics) blisters
Home Medications
clonazepam 1 mg tablet 2 mg PO DAILY@0000 Mental Health/Anxiety 08/19/20
omeprazole 40 mg capsule,delayed release 40 mg PO DAILY@1600 Gastrointestinal issue 08/19/20
oxycodone 5 mg tablet 5 mg PO BID@0800,1200 Pain 08/19/20
paroxetine HCl 30 mg tablet 30 mg PO DAILY@1200 Depression 08/19/20
apixaban 5 mg tablet (Eliquis) 5 mg PO BID@0800,2000 Blood clot prevention/tx 12/07/22
carbidopa 25 mg-levodopa 100 mg tablet 2 tab PO 5/D@00,08,12,16,20 Neurological Condition 12/07/22
clonazepam 1 mg tablet 0.5 mg PO DAILY@1600 12/07/22
ropinirole 2 mg tablet,extended release 24 hr 2 mg PO BID@0000,0800 Neurological Condition 12/07/22
torsemide 20 mg tablet 40 mg PO BID@0800,1400 Fluid retention/Swelling 12/07/22
cholecalciferol (vitamin D3) 25 mcg (1,000 unit) tablet 25 mcg PO DAILY@1200 01/13/24
ferrous sulfate 325 mg (65 mg iron) tablet (FeroSul) 325 mg PO DAILY@1400 01/13/24
gabapentin 250 mg/5 mL oral solution 300 mg PO TID@0800,1400,199901/13/24
levothyroxine 100 mcg tablet 100 mcg PO DAILY@0700 01/13/24
oxycodone 5 mg tablet 5 mg PO BIDPRN PRN moderate pain 01/13/24
spironolactone 25 mg tablet 25 mg PO DAILY@199901/13/24
spironolactone 25 mg tablet 50 mg PO DAILY 01/13/24
vit C 250 mg-vit E 90 mg-zinc 40 mg-copper 1 [id number] capsule (PreserVision AREDS-2) 1 tab PO BID@1200,199901/13/24
acetaminophen 650 mg tablet,extended release (Tylenol Arthritis Pain) 1,300 mg PO DAILY@119902/08/24
clonazepam 1 mg tablet 0.5 mg PO DAILYPRN PRN anxiety 02/08/24
coenzyme Q10 100 mg capsule (CoQ-10) 100 mg PO DAILY@199902/08/24
hydrocortisone 2.5 % topical cream 1 applic topical BIDPRN PRN eczema rash 02/08/24
potassium chloride 20 mEq tablet,extended release 40 meq PO BID@1199,199902/08/24
ropinirole 2 mg tablet,extended release 24 hr 1 mg PO DAILYPRN PRN Parkinson's symptoms 02/08/24
dofetilide 250 mcg capsule 250 mcg PO Q12H 09/12/24
estradiol 0.01% (0.1 mg/gram) vaginal cream 1 appful vaginal MOWE 09/12/24
fexofenadine 180 mg tablet 180 mg PO DAILY@09/12/24
ketoconazole 2 % topical cream 1 applic topical BIDPRN PRN yeast infection 09/12/24
metolazone 2.5 mg tablet 2.5 mg PO DAILYPRN PRN weight gain 09/12/24
trazodone 50 mg tablet 50 mg PO HSPRN PRN sleep 09/12/24
triamcinolone acetonide 0.1 % topical cream 1 applic topical BIDPRN PRN yeast infection 09/12/24
Review of Systems
-
History Source: Patient
Constitutional: Reports Weight Gain (8 pounds in approximately 3 days )
EENT: Reports No Symptoms
Respiratory: Reports Trouble Breathing (shortness of breath with exertion )
Cardiac: Reports No Symptoms
Abdomen/GI: Reports No Symptoms
: Reports No Symptoms
Musculoskeletal: Reports No Symptoms
Skin: Reports No Symptoms
Neurological: Reports Weakness (generalized weakness )
Endocrine: Reports No Symptoms
Hematologic/Lymphatic: Reports No Symptoms
Psych: Reports No Symptoms
Physical Exam
Vital Signs
Vital Signs
Temp Pulse Resp BP Pulse Ox
98.2 F 109 16 106/73 92
09/12/24 19:13 09/12/24 22:00 09/12/24 22:10 09/12/24 22:00 09/12/24 22:00
Physical Exam
General: Well Developed, Well Nourished, No Apparent Distress, Comfortable, Conversant and Morbidly Obese
HEENT: NormoCephalic, Moist mucous membranes, Atraumatic, Norene Conjunctivae, Nose Appears Normal and Ears Appear Normal
Respiratory: Clear and Non Labored Respirations
Cardiac: S1/S2, Irregular Rhythm and Tachycardia; No Murmur, Rub or Gallop
Breast: Deferred by me
GI: Soft, Non Tender and Normal Bowel Sounds; No Organomegaly
Rectal: Deferred by Provider
Genito-urinary: Deferred by me
Musculoskeletal: No Clubbing, No Cyanosis, Edema, Left Lower Extremity (trace) and Edema, Right Lower Extremity (trace)
Skin: Warm and IV/Catheter Site; No Rash
Neuro: Awake, Alert, AO x 3 and Nonfocal/grossly intact
Psych: Calm and Intact Judgment/Insight
Laboratory Results
-
09/12/24 16:49
09/12/24 16:49
Laboratory Results
Total Bilirubin 0.9 mg/dl (0.2-1.3) 09/12/24 16:49
AST 17 U/L (14-36) 09/12/24 16:49
ALT < 10 U/L (0-35) 09/12/24 16:49
Alkaline Phosphatase 82 U/L (38-126) 09/12/24 16:49
Troponin I < 0.012 ng/ml 09/12/24 16:49
Data Reviewed
-
Diagnostic Radiology: Report Reviewed by me (CXR: Small bilateral pleural effusions. Cardiomegaly with cephalized vascular flow. No convincing evidence for interstitial edema.)
Medical Tests (Nuc Med, Echo, EKG etc): Report Reviewed by me (EKG: ATRIAL FLUTTER WITH VARIABLE A-V BLOCK ANTEROLATERAL INFARCT (CITED ON OR BEFORE 07-DEC-2022))
Lab Data: Labs Reviewed by me (BNP 2380)
Impression/Plan
-
IMPRESSION/PLAN:
#generalized weakness, fatigue, shortness of breath
#Chronic HFpEF
BNP 2380
ECHO (12/21/2022): Technically difficult study - Definity recommended for future studies.
Normal left ventricular size, wall thickness and systolic function.
Bioprosthetic mitral valve.The peak/mean gradients across the valve are 22/8 mmHg.No mitral regurgitation.
Trace tricuspid regurgitation.
Estimated pulmonary artery pressure of 24 mmHg
Compared to prior study of. 12/16/21 no significant change
- Admit to telemetry
- Consult Cardiology
- daily weights
- monitor I&Os
- hold metolazone PRN and torsemide
- IV Lasix 80mg BID with hold parameters
- continue potassium chloride
- ECHO in morning
- consult PT/OT
#Paroxysmal Atrial Fibrillation
EKG: ATRIAL FLUTTER WITH VARIABLE A-V BLOCK
ANTEROLATERAL INFARCT (CITED ON OR BEFORE 07-DEC-2022)
CXR: Small bilateral pleural effusions.
Cardiomegaly with cephalized vascular flow. No convincing evidence for interstitial edema.
- continue dofetilide and Eliquis
#Essential Hypertension
- continue spironolactone with hold parameters
#Hypothyroidism
- continue levothyroxine
#Parkinson's Disease
- continue carbidopa-levodopa and ropinirole
#Anxiety/Depression
- continue clonazepam and paroxetine
#Chronic Pain Syndrome with Opioid Dependence
- continue gabapentin and oxycodone
#GERD
- continue omeprazole
#Mitral Regurgitation
s/p Bioprosthetic Mitral Valve
#Hyperlipidemia
#Right-Sided Ophthalmic Stroke
#Remote History of Seizure
#Recurrent UTIs
Code status: full code
DVT prophylaxis: Eliquis
[2024-09-12 23:00] VITALS: BP 99/76
--- NOTE | 2024-09-12 23:09 | W.PN.UPDATE ---
Update Note
Progress Note Update
Patient seen in conjunction with DIEUDONNE. I concur with the findings on history and physical. I agree with the assessment and plan.
This is a 79-year-old female with past medical history of CHF with preserved EF, mitral valve disease status post mitral valve replacement, atrial fibrillation on anticoagulation send status post cardioversion presenting to the emergency department
with 2 to 3 days of increasing weight gain, shortness of breath and dyspnea on exertion as well as palpitations. Patient has history of Parkinson disease, chronic pain and anxiety.
Patient reported that she had been in her usual state of health up until about 3 days ago. She started having urinary symptoms with dysuria and urinary frequency. Daughter reported that she had had slight increased confusion as well. She had been
treated for urinary tract infection with once a week medication and she was supposed to receive on Tuesday what which she never received it due to GI complaints. She now continues to have these dysuria and then developed palpitations over the last 3
days. Patient denied having any chest pain. She reported that since she started having palpitations and she notices increase in weight gain from around 188 to 198 pounds. She also reports increased bilateral lower extremity swelling. She said
that she bloated up. She reports chronic cough which is unchanged from prior. She reports dyspnea on exertion. She reports orthopnea. She denies any sick contacts. Denies any fevers or chills. She has been no recent changes in medication and
she reports compliance with her anticoagulation and a diuretic regimen as well as dofetilide.
In the emergency department she was afebrile blood pressure was 106/73 with a pulse of 119. She was satting 92% on room air. Chest x-ray shows small bilateral pleural effusions and some cephalization but otherwise unremarkable. ECG shows atrial
fibrillation at a rate of 116. Troponin was 0.012. BNP was elevated at 2400. CBC was unremarkable. Electrolytes were all all stable except for a bicarb of 33. BUN and creatinine were in the normal and unchanged.
Assessment and plan
79-year-old with presentation consistent with CHF exacerbation and associated with uncontrolled atrial fibrillation. Unclear which was triggered. But it appears that she may have developed uncontrolled A-fib in the setting of her urinary tract
infection. She is hemodynamically stable and alert and oriented x 3. She currently has no oxygen requirements.
CHF Exacerbation - CHF w/ preserved EF, s/p MVR. afib 10 Ib weightgain in 3 days, bnp unchanged from prior but increased le edema.
- admit to telemetry
- takes torsemide 40 bid, will give lasix 80 iv bid for now.
- holding torsemide, metolazone
- keep K, Mag > 4,2
- daily weights, i/os.
- echo in am
- continue spironolactone with hold parameters
AFIB - Uncontrolled rates in the 110s
- continue dofetillide
- continue epixaban
- prn metoprolol if uncontrolled rate and bp tolerates, allergies to dilt/amio
UTI - dysuria, frequency, recent uti
- u/a pending , urine cultures pending
- hold abx pending u/a unless febrile
Parkinson
- continue sinamet
- ropinrole
- continue pain control
Psych
- continue benzos, hold for sedation
DVT PPX - on apixaban
Code status - Full Code
[2024-09-12 23:28] VITALS: BP 94/64
[2024-09-13] VITALS (7 sets, daily range): BP systolic 95–120; BP diastolic 53–81; PULSE 112–114; O2SAT 94; BMI 32.1; BMI 32.0
--- NOTE | 2024-09-13 00:45 | PTCARENOTE ---
Received patient from ED via stretcher. Patient pulled over from stretcher to bed. Oriented patient to room and placed call pope within reach.
[2024-09-13] MEDS: SINEMET 25-100 PO (00:59)
[2024-09-13] MEDS: CLARITIN PO (00:59)
[2024-09-13] MEDS: KLONOPIN PO (00:59)
[2024-09-13 01:23] LABS: Urine Albumin Negative (Neg - Trace); Urine Bilirubin Negative (Negative); Urine Character Clear (Clear); Urine Color Yellow; Urine Glucose Negative (Negative); Urine Ketone Negative (Negative); Urine Leukocyte Negative (Negative); Urine Nitrite Negative (Negative); Urine Occult Blood Negative (Negative); Urine Urobilinogen Negative (Neg - 1+)
[2024-09-13] MEDS: SYNTHROID 100 MCG PO (06:30)
[2024-09-13 07:36] LABS: Blood Urea Nitrogen 17 mg/dl (7-17); Calcium 9.2 mg/dl (8.4-10.2); Carbon Dioxide 36 mmol/L (22-30); Chloride 93 mmol/L (98-107); Estimated Creatinine Clearance 87 ml/min; Glucose 114 mg/dl (70-99); HDL Cholesterol 28 mg/dl; LDL Cholesterol, Calculated 101 mg/dl; Magnesium 2.4 mg/dl (1.6-2.3); Potassium 3.8 mmol/L (3.5-5.1); Sodium 137 mmol/L (135-145); Total Cholesterol 165 mg/dl (50-199); Triglyceride 181 mg/dl (10-149); Very Low Density Lipoprotein 36 mg/dl (0-30); eGFR > 60.00
--- NOTE | 2024-09-13 08:14 | CON.CAR ---
Addendum entered and electronically signed by DIEUDONNE Medel 09/14/24 07:45:
Daughter confirmed to nursing yesterday that she did get her Eliquis dose on night of arrival.
Addendum entered and electronically signed by Rinku Atkins MD 09/13/24 15:08:
I saw and examined the patient.
The LEAD MANUFACTURING TECHNICIAN's note was reviewed and I agree with the note.
Comment: 79 y/o female (cardiology patient of Dr. Berry) with AFIB on Eliquis and Tikosyn (hx PVI x 2, Tikosyn loading and CV 02/10/24), HFpEF, hypertension, s/p bio MVR at [facility] 2020, COPD, hypokalemia on aldactone and potassium, Parkinson's disease
who is here for evaluation after she had a dry cough starting about one week ago, and has had fatigue, weakness, and palpitations. We are consulted for HFpEF exacerbation.
- IV diuresis
- echocardiogram
Original Note:
Consultation
Consultation Request
Date/Time Consultation Requested: 09/13/2414
Date/Time Consultation Performed: 09/13/24814
Requesting Provider: Payton Zambrano NP
Performing Provider: Sunshine BRO for Dr. Atkins
Reason for Consultation: CHF
Medical History
-
Chief Complaint: weakness, fatigue, palpitations
History of Present Illness:
79 y/o female (cardiology patient of Dr. Berry) with AFIB on Eliquis and Tikosyn (hx PVI x 2, Tikosyn loading and CV 02/10/24), HFpEF, hypertension, s/p bio MVR at [facility] 2020, COPD, hypokalemia on aldactone and potassium, Parkinson's disease who is
here for evaluation after she had a dry cough starting about one week ago, and has had fatigue, weakness, and palpitations. She has also had edema, but reports she is not SOB. She does admit that she was so weak that her legs gave out and she fell x
2. No LOC. No injury. She has gained 15 lbs. Her urine has been 'strong', but UA appears negative. She is seen to be in atrial flutter. She is compliant with all medicines, importantly including Eliquis. She is admitted and being diuresed. She is in
no distress at the time of my assessment.
Past Medical History
Past Medical History: Arrhythmias, CHF, COPD, HTN and Other (as above)
Social History
Tobacco: Former Smoker
Family History
Family History: Reviewed & Not Pertinent
Allergies / Home Medications
Allergy/AdvReac Type Severity Reaction Status Date / Time
adhesive tape Allergy Rash Verified 09/12/24 16:38
aspirin Allergy Hives Verified 09/12/24 16:38
corn Allergy Hives Verified 09/12/24 16:38
corn syrup Allergy Hives Verified 09/12/24 16:38
diltiazem HCl [From Cardizem] Allergy ANGIOEDEMA Verified 09/12/24 16:38
latex Allergy Rash Verified 09/12/24 16:38
oxycodone [From Percocet] Allergy Hives Verified 09/12/24 16:38
silver Allergy hives,itchi Verified 09/12/24 16:38
ng,blisters
simvastatin [From Zocor] Allergy SEVERE Verified 09/12/24 16:38
MUSCLE
CRAMPING
Sulfa (Sulfonamide Allergy hives,itching, Verified 09/12/24 16:38
Antibiotics) blisters
amiodarone AdvReac Intermediate Unknown Verified 09/13/24 03:49
beta arianna AdvReac Unknown Unknown Uncoded 09/13/24 03:49
�Medication �Instructions �Recorded �Confirmed �Type
clonazepam 1 mg tablet 2 mg PO DAILY@0000 Mental 08/19/20 09/12/24 History
Health/Anxiety
omeprazole 40 mg capsule,delayed 40 mg PO DAILY@1600 08/19/20 09/12/24 History
release Gastrointestinal issue
oxycodone 5 mg tablet 5 mg PO BID@0800,1200 Pain 08/19/20 09/12/24 History
paroxetine HCl 30 mg tablet 30 mg PO DAILY@1200 Depression 08/19/20 09/12/24 History
apixaban 5 mg tablet (Eliquis) 5 mg PO BID@0800,2000 Blood clot 12/07/22 09/12/24 History
prevention/tx
carbidopa 25 mg-levodopa 100 mg 2 tab PO 5/D@00,08,12,16,20 12/07/22 09/12/24 History
tablet Neurological Condition
clonazepam 1 mg tablet 0.5 mg PO DAILY@1600 12/07/22 09/12/24 History
ropinirole 2 mg tablet,extended 2 mg PO BID@0000,0800 Neurological 12/07/22 09/12/24 History
release 24 hr Condition
torsemide 20 mg tablet 40 mg PO BID@0800,1400 Fluid 12/07/22 09/12/24 History
retention/Swelling
cholecalciferol (vitamin D3) 25 25 mcg PO DAILY@1200 01/13/24 09/12/24 History
mcg (1,000 unit) tablet
ferrous sulfate 325 mg (65 mg 325 mg PO DAILY@1400 01/13/24 09/12/24 History
iron) tablet (FeroSul)
gabapentin 250 mg/5 mL oral 300 mg PO TID@0800,1400,199901/13/24 09/12/24 History
solution
levothyroxine 100 mcg tablet 100 mcg PO DAILY@0700 01/13/24 09/12/24 History
oxycodone 5 mg tablet 5 mg PO BIDPRN PRN moderate pain 01/13/24 09/12/24 History
spironolactone 25 mg tablet 25 mg PO DAILY@199901/13/24 09/12/24 History
spironolactone 25 mg tablet 50 mg PO DAILY 01/13/24 09/12/24 History
vit C 250 mg-vit E 90 mg-zinc 40 1 tab PO BID@1200,199901/13/24 09/12/24 History
mg-copper 1 [id number]-giqjmk-vdtggj
capsule (PreserVision AREDS-2)
acetaminophen 650 mg 1,300 mg PO DAILY@119902/08/24 09/12/24 History
tablet,extended release (Tylenol
Arthritis Pain)
clonazepam 1 mg tablet 0.5 mg PO DAILYPRN PRN anxiety 02/08/24 09/12/24 History
coenzyme Q10 100 mg capsule 100 mg PO DAILY@199902/08/24 09/12/24 History
(CoQ-10)
hydrocortisone 2.5 % topical cream 1 applic topical BIDPRN PRN eczema 02/08/24 09/12/24 History
rash
potassium chloride 20 mEq 40 meq PO BID@1199,199902/08/24 09/12/24 History
tablet,extended release
ropinirole 2 mg tablet,extended 1 mg PO DAILYPRN PRN Parkinson's 02/08/24 09/12/24 History
release 24 hr symptoms
dofetilide 250 mcg capsule 250 mcg PO Q12H 09/12/24 09/12/24 History
estradiol 0.01% (0.1 mg/gram) 1 appful vaginal MOWE 09/12/24 09/12/24 History
vaginal cream
fexofenadine 180 mg tablet 180 mg PO DAILY@09/12/24 09/12/24 History
ketoconazole 2 % topical cream 1 applic topical BIDPRN PRN yeast 09/12/24 09/12/24 History
infection
metolazone 2.5 mg tablet 2.5 mg PO DAILYPRN PRN weight gain 09/12/24 09/12/24 History
trazodone 50 mg tablet 50 mg PO HSPRN PRN sleep 09/12/24 09/12/24 History
triamcinolone acetonide 0.1 % 1 applic topical BIDPRN PRN yeast 09/12/24 09/12/24 History
topical cream infection
Review of Systems
-
History Source: Patient
All other systems: Negative unless noted
Constitutional: Fatigue
Respiratory: Trouble Breathing
Neurological: Weakness
Physical Exam
Vital Signs
Temp Pulse Resp BP Pulse Ox
97.7 F 116 18 113/81 96
09/13/24 03:07 09/13/24 03:07 09/13/24 03:07 09/13/24 03:07 09/13/24 04:22
Lab Results
09/12/24 16:49
09/13/24 06:18
Troponin I < 0.012 ng/ml 09/12/24 16:49
[id number] Pept 2380 pg/ml 09/12/24 16:49
Physical Exam
General: Well Developed, Well Nourished and No Apparent Distress
HEENT: Normocephalic and Anicteric
Respiratory: Crackles (b/l bases)
Cardiac: Regular Rhythm (Aflutter ) and Peripheral Edema (mild BLE edema)
Musculoskeletal: Edema
Skin: Warm and Dry
Neuro: AO x 3
Psych: Calm
Impression / Plan
-
Uudvo-wt-vhiukhm HFpEF:
-most recent echo as noted. She is ordered for updated echo.
-agree with IV lasix, which requires intensive monitoring
-she is on torsemide 40 mg PO BID as OP, as well as Aldactone 50 mg in AM and 25 mg in PM (hx hypokalemia). She takes PRN metolazone, but has not taken in about 3 weeks.
-CHF education
-sodium and fluid limitations
-not on SGLT2I due to UTI's
-dry weight is about 83 kg. Currently 90 kg.
Afib (paroxysmal, but recurrent)/Aflutter (type unknown):
-currently aflutter 115 BPM
-hx 2 prior PVI's, last CV 01/2024 with Tikosyn initiation
-she has been compliant with Eliquis and has missed no doses in the past month. However, I see that she got here yesterday afternoon and it was not given here last night. She thinks her daughter gave it to her, but has a call out to her to confirm
this and will let us know.
-continue dofetilide and Eliquis
-will likely need repeat CV
-of note, per chart amio may have led to LOC, dilt caused anaphylaxis, and BB caused BB to be too low. Could retrial BB if needed and monitor BP.
Hx bio MVR:
-update echo
Data Reviewed
-
EKG: Tracing Personally Visualized and interpreted (Atrial flutter 116 BPM)
Radiology: Report Reviewed by me (CXR: Small bilateral pleural effusions. Cardiomegaly with cephalized vascular flow. No convincing evidence for interstitial edema.)
Medical Tests (Nuc Med, Echo etc): Report Reviewed by me (Echo 01/16/24: Normal left ventricular chamber size, myocardial thickness and systolic function. Left ventricular ejection 55 to 60%. Well-seated bio-prosthetic mitral valve replacement with
trace central mitral regurgitation. Mild tricuspid regurgitation.)
Labs: Labs Reviewed by me
--- NOTE | 2024-09-13 08:22 | W.PN.HOSP.TC ---
Today's Communication/Plan
-
see PN
Assessment / Plan
Assessment / Plan
79yo F wityh PMHx of anxiety, Afib, hypothyroidism, depression, R CEA, MV repair, neuropathy, parkinsons, seizure d/o came with 1 day of heart palpitations and couple of days of b/l LE swelling. Has some diarrhea and dry cough that started 1 week
ago now resolved. Managed for Afib with RVR and CHF exacerbation
A/P:
#Afib, paroxysmal with RVR
Hx of successful CV in 2023
Rate/rhythm control
telemetry
Cardio consult
Cont Eliquis
on Tycosin 2/2 reaction to amio, cardizem and BB
QTc 489 - cont monitoring
#Acute HFpEF exacerbation
Lasix, Echo, daily electrolytes, follow Cr, daily weight
#recent acute URI and diarrhea
check COVID-19 and Influenza PCR - out of window for treatment also symptoms resolving, but for precautionary reason
#Hypothyroidism
Hx of non-compliance
check TSH and continue Synthroid
#Parkinson
#Seizure d/o
#Anxiety/depression d/o
cont home meds
DVT ppx ELiquis
Full code
I have spent at least 58min reviewing chart, test reuslts, communication with consultants and direct patient care
Anticipated Discharge: > 48 hours
Subjective/Interval History
-
Date of Service: September 13, 2024
Objective Data
-
Labs:
Laboratory Results
09/13/24
06:18
Sodium 137
Potassium 3.8
Chloride 93 L
Carbon Dioxide 36 H
BUN 17
Creatinine 0.6
Glucose 114 H
Calcium 9.2
Vital Signs:
Vital Signs
Temp Pulse Resp BP Pulse Ox
97.7 F 116 18 113/81 96
09/13/24 03:07 09/13/24 03:07 09/13/24 03:07 09/13/24 03:07 09/13/24 04:22
I&O
09/12/24 09/13/24 09/14/24
06:59 06:59 06:59
Intake Total 0 / 0
Output Total 1000 / 1000
Balance -1000 / -1000
Review of Systems
-
History Source: Patient
All other systems: Reviewed and negative
Cardiac: Reports Palpitations
Physical Exam
-
General: No Apparent Distress
Respiratory: Clear to Auscultation
Cardiac: Irregular Rhythm and Tachycardic
GI: Soft, Nontender and Nondistended
Musculoskeletal: No Clubbing, No Cyanosis, Edema, Right Lower Extrem and Edema, Left Lower Extrem
Neuro: Awake, Alert, Oriented and AO x 3
Psych: Calm
[2024-09-13] MEDS: LASIX 80 MG IV ×2 (09:06→16:26)
[2024-09-13] MEDS: TIKOSYN 250 MCG PO ×2 (09:07→20:57)
[2024-09-13] MEDS: NEURONTIN 300 MG PO ×3 (09:08→20:57)
[2024-09-13] MEDS: ELIQUIS 5 MG PO ×2 (09:08→20:57)
[2024-09-13] MEDS: ROXICODONE 5 MG PO ×2 (09:08→13:30)
[2024-09-13] MEDS: ALDACTONE 50 MG PO (09:08)
[2024-09-13] MEDS: SINEMET 25-100 2 TABLET PO ×4 (09:10→21:00)
[2024-09-13 10:42] LABS: TSH 2.55 uIU/ml (0.47-4.68)
[2024-09-13] MEDS: NON-FORMULARY ITEM PO ×2 (10:49→10:56)
[2024-09-13] MEDS: NON-FORMULARY ITEM 2 MG PO (10:50)
[2024-09-13 11:19] LABS: COVID-19 Antigen Negative (Negative)
--- NOTE | 2024-09-13 13:01 | CM ---
CM met with Marita at bedside to complete IA.
She lives with her daughter and grandson in a [address] in [address] suite with ramp access.
DME: RW, electric w/c, manual w/c, transport chair (electric w/c is used for most activity).
SNF recommended, however pt prefers to return home with home health services. She believes she can get stronger with home therapy and will manage at home with assistance from her grandson. PT and OT recommend home care services.
Patient is known to [facility] and also has RADIO ELECTRICIAN with [facility] 4 hrs a day/3 days a week.
--- NOTE | 2024-09-13 13:03 | CARDSERVDEF ---
Echocardiogram with Definity completed after protocol screening completed. Allergies verified.
Patent IV site: _Right cephalic 20 G PC site clear____
IV site flushed with 0.9% NaCl pre and post administration.
Diluted bolus method utilized to enhance visualization of ventricular cisse.
Total volume given: _3___ mL
Patient tolerated all procedures well without complications. Report called to Gely on floor, aware Definity given for Echo.
[2024-09-13] MEDS: TYLENOL 1000 MG PO (13:30)
[2024-09-13] MEDS: PAXIL 30 MG PO (13:30)
[2024-09-13] MEDS: KCL 40 MEQ PO ×2 (13:30→20:57)
[2024-09-13] MEDS: OCUVITE SOFTGEL 1 CAP PO ×2 (13:30→20:57)
[2024-09-13] MEDS: VITAMIN D3 (cholecalciferol) 25 MCG PO (13:30)
[2024-09-13] MEDS: FEOSOL 325 MG PO (15:20)
[2024-09-13] MEDS: PROTONIX 40 MG PO (16:26)
[2024-09-13] MEDS: KLONOPIN 0.5 MG PO (16:42)
[2024-09-13] MEDS: ALDACTONE 25 MG PO (20:57)
[2024-09-14] VITALS (7 sets, daily range): BP systolic 94–127; BP diastolic 55–78; PULSE 79; O2SAT 98; BMI 31.2
[2024-09-14] MEDS: SINEMET 25-100 2 TABLET PO ×4 (00:15→21:08)
[2024-09-14] MEDS: KLONOPIN 2 MG PO (00:15)
[2024-09-14] MEDS: CLARITIN 10 MG PO (00:16)
[2024-09-14] MEDS: NON-FORMULARY ITEM 2 MG PO ×2 (00:18→09:28)
[2024-09-14] MEDS: SYNTHROID 100 MCG PO (06:30)
[2024-09-14 07:47] LABS: Blood Urea Nitrogen 16 mg/dl (7-17); Calcium 9.2 mg/dl (8.4-10.2); Carbon Dioxide 35 mmol/L (22-30); Chloride 95 mmol/L (98-107); Estimated Creatinine Clearance 86 ml/min; Glucose 109 mg/dl (70-99); Magnesium 2.5 mg/dl (1.6-2.3); Potassium 4.2 mmol/L (3.5-5.1); Sodium 136 mmol/L (135-145); eGFR > 60.00
[2024-09-14] MEDS: ALDACTONE 50 MG PO (09:28)
[2024-09-14] MEDS: TIKOSYN 250 MCG PO ×2 (09:29→20:57)
[2024-09-14] MEDS: LASIX 80 MG IV ×2 (09:29→15:57)
[2024-09-14] MEDS: NEURONTIN 300 MG PO ×3 (09:30→20:58)
[2024-09-14] MEDS: ROXICODONE 5 MG PO ×2 (09:30→16:09)
--- NOTE | 2024-09-14 09:30 | W.PN.HOSP.TC ---
Addendum entered and electronically signed by Manish Estevez MD 09/14/24 09:55:
Echo: EF 65%, no regional wall motion abnormalities. Compared to prior from December 21, 2022, mean gradient across the bioprosthetic mitral valve is 10 mmHg at 111 bpm, previously 8 mmHg. Additionally, RV is now dilated with reduced systolic function
and there is mild to moderate tricuspid regurgitation
Original Note:
Today's Communication/Plan
-
cont diuresis
Cardio for HR mgmt
Assessment / Plan
Assessment / Plan
79yo F wityh PMHx of anxiety, Afib, hypothyroidism, depression, R CEA, MV repair, neuropathy, parkinsons, seizure d/o came with 1 day of heart palpitations and couple of days of b/l LE swelling. Has some diarrhea and dry cough that started 1 week
ago now resolved. Managed for Afib with RVR and CHF exacerbation. Patient reportedly missed her metolazone at home.
A/P:
#Afib, paroxysmal with RVR
Hx of successful CV in 2023
Rate/rhythm control
telemetry
Cardio consult: target dry weight 82kg
Cont Eliquis
on Tycosin 2/2 reaction to amio, cardizem and BB
QTc 489 - cont monitoring
#Acute HFpEF exacerbation
Lasix, Echo, daily electrolytes, follow Cr, daily weight
#recent acute URI and diarrhea
check COVID-19 and Influenza PCR - out of window for treatment also symptoms resolving, but for precautionary reason
#Hypothyroidism
Hx of non-compliance
check TSH and continue Synthroid
#Parkinson
#Seizure d/o
#Anxiety/depression d/o
cont home meds
DVT ppx ELiquis
Full code
I have spent at least 38min reviewing chart, test results, communication with consultants and direct patient care
Anticipated Discharge: > 48 hours
Subjective/Interval History
-
Date of Service: September 14, 2024
Objective Data
-
Labs:
Laboratory Results
09/14/24
06:19
Sodium 136
Potassium 4.2
Chloride 95 L
Carbon Dioxide 35 H
BUN 16
Creatinine 0.6
Glucose 109 H
Calcium 9.2
Vital Signs:
Vital Signs
Temp Pulse Resp BP Pulse Ox
97.8 F 118 16 127/78 94
09/14/24 07:45 09/14/24 07:45 09/14/24 07:45 09/14/24 07:45 09/14/24 07:45
I&O
09/13/24 09/14/24 09/15/24
06:59 06:59 06:59
Intake Total 0 / 0 600 / 600
Output Total 1000 / 1000 2200 / 2200
Balance -1000 / -1000 -1600 / -1600
Review of Systems
-
History Source: Patient
All other systems: Reviewed and negative
Physical Exam
-
General: No Apparent Distress
Cardiac: Regular Rhythm
GI: Soft, Nontender and Nondistended
Neuro: Awake, Alert, Oriented and AO x 3
Psych: Calm
[2024-09-14] MEDS: ELIQUIS 5 MG PO ×2 (09:33→20:58)
--- NOTE | 2024-09-14 10:11 | W.PN.CD ---
Today's Communication / Plan
-
DCCV today
Last day IV diuretics switch to torsemide 80 in AM and 40 PM
We will sign off pls call with questions/concerns.
Impression / Plan
-
Wpdpe-sm-ldgywxi HFpEF:
-most recent echo as noted. She is ordered for updated echo.
-Last day IV lasix today switch to torsemide 80 in AM and 40 PM
-cont Aldactone 50 mg in AM and 25 mg in PM (hx hypokalemia). She takes PRN metolazone, but has not taken in about 3 weeks.
-CHF education
-sodium and fluid limitations
-not on SGLT2I due to UTI's
-dry weight is about 83 kg. 87 today
Afib (paroxysmal, but recurrent)/Aflutter (type unknown):
-currently aflutter 115 BPM
-hx 2 prior PVI's, last CV 01/2024 with Tikosyn initiation
-she has been compliant with Eliquis and has missed no doses in the past month. However, I see that she got here yesterday afternoon and it was not given here last night. She thinks her daughter gave it to her, but has a call out to her to confirm
this and will let us know.
-continue dofetilide and Eliquis
-DCCV today
-of note, per chart amio may have led to LOC, dilt caused anaphylaxis, and BB caused BB to be too low. Could retrial BB if needed and monitor BP.
Hx bio MVR:
-update echo
Subjective: Feeling great no new complaints
Physical Exam
Vital Signs/Labs
Vital Signs
Temp Pulse Resp BP Pulse Ox
97.8 F 118 16 127/78 94
09/14/24 07:45 09/14/24 07:45 09/14/24 07:45 09/14/24 07:45 09/14/24 07:45
02/09/14/24 09/15/24
06:59 06:59 06:59
Actual Weight 198 lb 9 oz 193 lb 3 oz
09/12/24 16:49
09/14/24 06:19
Magnesium 2.5 mg/dl (1.6-2.3) H 09/14/24 06:19
Triglycerides 181 mg/dl (10-149) H 09/13/24 06:18
LDL Cholesterol, Calc 101 mg/dl 09/13/24 06:18
VLDL Cholesterol, Calc 36 mg/dl (0-30) H 09/13/24 06:18
HDL Cholesterol 28 mg/dl 09/13/24 06:18
TSH 2.55 uIU/ml (0.47-4.68) 09/13/24 06:18
09/12/24
16:49
Oki-R-Tupemgsnqoa Pept 2380
LAB Results
09/12/24
16:49
Troponin I < 0.012
Physical Exam
Constitutional: No acute distress and Comfortable
EENT: Anicteric
Cardiovascular: Rhythm & rate is regular and Pedal edema is absent
Respiratory: Respiratory effort normal and Lungs clear to auscul.
GI: Soft
Neuro/Psych: AO x 3
Data Reviewed
-
Date of Service: September 14, 2024
EKG: Tracing Personally Visualized and interpreted (a flutter now SR)
Echo: Report Reviewed by me
Labs: Labs Reviewed by me
[2024-09-14] MEDS: KCL 40 MEQ PO ×2 (11:52→20:58)
[2024-09-14] MEDS: PAXIL 30 MG PO (11:52)
[2024-09-14] MEDS: VITAMIN D3 (cholecalciferol) 25 MCG PO (11:52)
[2024-09-14] MEDS: TYLENOL 1000 MG PO (11:57)
[2024-09-14] MEDS: KLONOPIN 0.5 MG PO (15:58)
[2024-09-14] MEDS: PROTONIX 40 MG PO (15:58)
[2024-09-14] MEDS: FEOSOL 325 MG PO (15:58)
[2024-09-14] MEDS: SINEMET 25-100 PO (16:00)
[2024-09-14] MEDS: OCUVITE SOFTGEL PO (16:02)
[2024-09-14] MEDS: ROXICODONE PO (16:08)
--- NOTE | 2024-09-14 16:53 | PTCARENOTE ---
Patient with successful cardioversion today. Currently sinus rhythm - heart rate in the 80s. Denies complaints.
--- NOTE | 2024-09-14 17:07 | ITS.CL.CARDI ---
[facility] - Cardioversion
Cardioversion
Procedure Report:
Date of Procedure: 09/14/24
Procedure: Cardioversion
Indication: Symptomatic atrial flutter
Performing Physician: Emeterio Mcclendon MD
Technique: The patient was brought to the holding area. Signed informed consent was obtained. A time out was called and performed. The patient was anesthetized by the anesthesia service. Anticoagulation status was reviewed and appropriate. R2 pads
were placed anteriorly and posteriorly. A 200 J synchronized biphasic shock restored normal sinus rhythm without significant bradycardia. There were no complications.
Conclusion: Uncomplicated cardioversion from atrial flutter to sinus rhythm.
Recommendation: Routine post cardioversion care. Continue ocean transportation intermediary anticoagulation.
[2024-09-14] MEDS: ALDACTONE 25 MG PO (20:57)
[2024-09-14] MEDS: OCUVITE SOFTGEL 1 CAP PO (20:58)
[2024-09-14] MEDS: DESENEX/MITRAZOL/ZEASORB 1 APPLIC TOPICAL (20:58)
[2024-09-15] MEDS: SINEMET 25-100 2 TABLET PO ×3 (00:19→12:21)
[2024-09-15] MEDS: NON-FORMULARY ITEM 2 MG PO ×2 (00:19→08:22)
[2024-09-15] MEDS: KLONOPIN 2 MG PO (00:19)
[2024-09-15] MEDS: CLARITIN 10 MG PO (00:19)
[2024-09-15 03:35] VITALS: BP 110/46
[2024-09-15 06:00] VITALS: BMI 31.1
[2024-09-15] MEDS: SYNTHROID 100 MCG PO (06:24)
[2024-09-15 07:50] VITALS: BP 123/58
[2024-09-15] MEDS: ALDACTONE 50 MG PO (08:17)
[2024-09-15] MEDS: NEURONTIN 300 MG PO (08:18)
[2024-09-15] MEDS: DESENEX/MITRAZOL/ZEASORB 1 APPLIC TOPICAL (08:18)
[2024-09-15] MEDS: ELIQUIS 5 MG PO (08:18)
[2024-09-15] MEDS: LASIX 80 MG IV (08:19)
[2024-09-15] MEDS: TIKOSYN 250 MCG PO (08:20)
[2024-09-15] MEDS: ROXICODONE 5 MG PO ×2 (08:20→12:22)
[2024-09-15] MEDS: FLUSH (NSS) 2 FLUSH IV (08:23)
[2024-09-15 08:25] LABS: % Basophils 0.9 % (0-2); % Eosinophils 2.7 % (0-6); % Immature Granulocytes 0.3 % (0-0.5); % Lymphocytes 15.1 % (20.5-51.1); % Monocytes 6.5 % (1.7-9.3); % Neutrophils 74.5 % (42.2-75.2); Absolute Basophils 0.1 10^3/uL (0-0.2); Absolute Eosinophils 0.2 10^3/uL (0-0.7); Absolute Lymphocytes 1.2 10^3/uL (1.2-3.4); Absolute Monocytes 0.5 10^3/uL (0.1-0.6); Absolute Neutrophils 5.8 10^3/uL (1.4-6.5); Hematocrit 38.7 % (37.0-47.0); Hemoglobin 12.3 g/dL (12.0-16.0); Mean Corp Hgb Conc. 31.8 g/dL (33.0-37.0); Mean Corpuscular Hgb 30.4 pg (27.0-31.0); Mean Corpuscular Volume 95.8 fL (81.0-99.0); Mean Platelet Volume 8.9 fL (7.4-10.4); Nucleated Red Blood Cells % 0 %; Platelet Count 219 10^3/uL (130-400); Red Blood Cell Count 4.04 10^6/uL (4.20-5.40); Red Cell Dist. Width 12.5 % (11.5-14.5); White Blood Cell Count 7.8 10^3/uL (4.8-10.8)
[2024-09-15 09:09] LABS: ALT (SGPT) < 10 U/L (0-35); AST (SGOT) 16 U/L (14-36); Albumin 4.5 g/dl (3.5-5.0); Alkaline Phosphatase 75 U/L (38-126); Blood Urea Nitrogen 18 mg/dl (7-17); Calcium 9.2 mg/dl (8.4-10.2); Carbon Dioxide 37 mmol/L (22-30); Chloride 93 mmol/L (98-107); Estimated Creatinine Clearance 74 ml/min; Glucose 111 mg/dl (70-99); Potassium 4.2 mmol/L (3.5-5.1); Sodium 136 mmol/L (135-145); Total Protein 6.8 g/dl (6.3-8.2); eGFR > 60.00
--- NOTE | 2024-09-15 10:40 | W.PN.HOSP.TC ---
Today's Communication/Plan
-
dc
Assessment / Plan
Assessment / Plan
79yo F wityh PMHx of anxiety, Afib, hypothyroidism, depression, R CEA, MV repair, neuropathy, parkinsons, seizure d/o came with 1 day of heart palpitations and couple of days of b/l LE swelling. Has some diarrhea and dry cough that started 1 week
ago now resolved. Managed for Afib with RVR and CHF exacerbation. Patient reportedly missed her metolazone at home. Had CV on 09/14/24 with convertion to sinus rhythm, telemetry overnight reviewed with solar project manager before d/c -no concern for A.fib
re-occurance. Recommended to increase Torsemide to 80mg in AM only, TOrcemide 40mg @PM to cont. Patient verbbalized understanding of the instructions. Medically stable for d/c as agreed with cardiology. WIll go home
A/P:
#Afib, paroxysmal with RVR
Hx of successful CV in 2023
Rate/rhythm control
telemetry
Cardio consult:CV
Cont Eliquis
on Tycosin 2/2 reaction to amio, cardizem and BB
QTc 489 - cont monitoring
#Acute HFpEF exacerbation
Lasix, Echo, daily electrolytes, follow Cr, daily weight
#recent acute URI and diarrhea
check COVID-19 and Influenza PCR - out of window for treatment also symptoms resolving, but for precautionary reason
#Hypothyroidism
Hx of non-compliance
check TSH and continue Synthroid
#Parkinson
#Seizure d/o
#Anxiety/depression d/o
cont home meds
DVT ppx ELiquis
Full code
I have spent at least 38min reviewing chart, test results, communication with consultants and direct patient care
Anticipated Discharge: Today
Subjective/Interval History
-
Date of Service: September 15, 2024
Objective Data
-
Labs:
Laboratory Results
09/15/24
08:08
WBC 7.8
Hgb 12.3
Hct 38.7
Plt Count 219
Sodium 136
Potassium 4.2
Chloride 93 L
Carbon Dioxide 37 H
BUN 18 H
Creatinine 0.7
Glucose 111 H
Calcium 9.2
Total Bilirubin 1.0
AST 16
ALT < 10
Alkaline Phosphatase 75
Vital Signs:
Vital Signs
Temp Pulse Resp BP Pulse Ox
97.5 F 70 18 123/58 100
09/15/24 07:50 09/15/24 08:17 09/15/24 07:50 09/15/24 08:17 09/15/24 07:50
I&O
09/14/24 09/15/24 09/16/24
06:59 06:59 06:59
Intake Total 600 / 600 600 / 600
Output Total 2200 / 2200
Balance -1600 / -1600 600 / 600
Review of Systems
-
History Source: Patient
All other systems: Reviewed and negative
Physical Exam
-
General: No Apparent Distress
HEENT: Normocephalic
GI: Soft, Nontender and Nondistended
Musculoskeletal: No Clubbing, No Cyanosis and No Edema
Psych: Calm
--- NOTE | 2024-09-15 10:49 | W.DCSUMMARY ---
Discharge Summary
Discharge Data
Date of Admission: 09/12/24
Date of Discharge: 09/15/24
-
Pending Results: No
Hospital Course
79yo F wityh PMHx of anxiety, Afib, hypothyroidism, depression, R CEA, MV repair, neuropathy, parkinsons, seizure d/o came with 1 day of heart palpitations and couple of days of b/l LE swelling. Has some diarrhea and dry cough that started 1 week
ago now resolved. Managed for Afib with RVR and CHF exacerbation. Patient reportedly missed her metolazone at home. Had CV on 09/14/24 with convertion to sinus rhythm, telemetry overnight reviewed with commissioned police officer before d/c -no concern for A.fib
re-occurance. Recommended to increase Torsemide to 80mg in AM only, TOrcemide 40mg @PM to cont. Patient verbbalized understanding of the instructions. Medically stable for d/c as agreed with cardiology. WIll go home
I have spent at least 38min reviewing chart, test results, communication with consultants and direct patient care
Patient was managed for:
#Afib, paroxysmal with RVR
#Acute HFpEF exacerbation
#Bioprosthetic MV
#recent acute URI and diarrhea
#Hypothyroidism
#Parkinson
#Seizure d/o
#Anxiety/depression d/o
Discharge Plan
-
Patient Disposition: Home (Routine Discharge)
Discharge Diagnosis/Procedures: Afib, CHF
Diet: Low Sodium
Activity: As tolerated
Driving Restrictions: As prior to admission
Instructions: *CBC Heart Failure Instructions
Referrals:
Yessica Martin CRNP [Family Provider] -
Richard Goodson MD [Active] - in less than 1 week
Prescriptions:
New
torsemide 40 mg tablet
80 mg PO DAILY@0800 Qty: 30 0RF
Continued
clonazepam 1 MG tablet
2 mg PO DAILY@0000
omeprazole 40 MG capsule,delayed release(DR/EC)
40 mg PO DAILY@1600
paroxetine HCl 30 MG tablet
30 mg PO DAILY@1200
oxycodone 5 MG tablet
5 mg PO BID@0800,1200
clonazepam 1 mg Tablet
0.5 mg PO DAILY@1600
carbidopa-levodopa 25-100 mg tablet
2 tab PO 5/D@00,08,12,16,20
ropinirole 2 mg tablet extended release 24 hr
2 mg PO BID@0000,0800
Eliquis 5 MG tablet
5 mg PO BID@799,1999
gabapentin 250 mg/5 mL solution
300 mg PO TID@0800,1399,1999
spironolactone 25 mg tablet
50 mg PO DAILY
spironolactone 25 mg tablet
25 mg PO DAILY@1999
levothyroxine 100 mcg tablet
100 mcg PO DAILY@0700
ferrous sulfate [FeroSul] 325 mg (65 mg iron) tablet
325 mg PO DAILY@1400
oxycodone 5 mg tablet
5 mg PO BIDPRN PRN (Reason: moderate pain)
cholecalciferol (vitamin D3) 25 mcg (1,000 unit) Tablet
25 mcg PO DAILY@1200
PreserVision AREDS-2 250-90-40-1 mg Capsule
1 tab PO BID@
clonazepam 1 mg Tablet
0.5 mg PO DAILYPRN PRN (Reason: anxiety)
acetaminophen [Tylenol Arthritis Pain] 650 mg Tablet Extended Release
1,300 mg PO DAILY@1200
hydrocortisone 2.5 % Cream
1 applic TOPICAL BIDPRN PRN (Reason: eczema rash)
coenzyme Q10 [CoQ-10] 100 mg Capsule
100 mg PO DAILY@1999
ropinirole 2 mg Tablet Extended Release 24 Hr
1 mg PO DAILYPRN PRN (Reason: Parkinson's symptoms)
potassium chloride 20 mEq tablet extended release
40 meq PO BID@1200,2000
metolazone 2.5 mg Tablet
2.5 mg PO DAILYPRN PRN (Reason: weight gain)
trazodone 50 mg Tablet
50 mg PO HSPRN PRN (Reason: sleep)
fexofenadine 180 mg Tablet
180 mg PO DAILY@0000
triamcinolone acetonide 0.1 % Cream
1 applic TOPICAL BIDPRN PRN (Reason: yeast infection)
estradiol 0.01 % (0.1 mg/gram) Cream
1 appful VAGINAL MOWE
ketoconazole 2 % Cream
1 applic TOPICAL BIDPRN PRN (Reason: yeast infection)
dofetilide 250 mcg capsule
250 mcg PO Q12H
Changed
torsemide 20 mg Tablet
40 mg PO DAILY@1400 Qty: 0 0RF
Discharge Orders:
Discharge Patient (As Directed); Ordered 09/15/24
Ordered By: Manish Estevez
Discharge Date and Time
Print Language: KAZAKH
--- NOTE | 2024-09-15 10:53 | CM ---
Patient seen at bedside.
CM consult completed for VN
PT rec HH
Options reviewed with patient and daughter Navya [facility]
IMM explained & signed. In chart
Notified Aviva Schneider liaison [facility]
Patient also is current with palliative care & has home helpers
PLAN[facility]
daughter Navya to transport
[2024-09-15 11:44] VITALS: BP 99/54
[2024-09-15] MEDS: PAXIL 30 MG PO (12:21)
[2024-09-15] MEDS: KCL 40 MEQ PO (12:21)
[2024-09-15] MEDS: TYLENOL 1000 MG PO (12:21)
[2024-09-15] MEDS: OCUVITE SOFTGEL 1 CAP PO (12:21)
[2024-09-15] MEDS: VITAMIN D3 (cholecalciferol) 25 MCG PO (12:22)
[2024-09-15 12:24] VITALS: BP 126/62
[2024-09-15 14:23] VITALS: BP 122/51
--- NOTE | 2024-09-17 11:43 | W.HF.CON ---
Heart Failure
- LV Function
Left ventricular function study result: LV Ejection fraction >/= 50%
Ejection Fraction Percentage: 55-60
- ARNI
Patient already on ARNI: No
Heart Failure ARNI Not Indicated: LV Ejection Fraction >/= 40%
- ACEI/ARB
Patient already on ACEI/ARB: No
Heart Failure ACEI/ARB Not Indicated: LV Ejection Fraction > 40%
- Beta Ronna
Patient already on Evidence Based Beta Ronna: No
Heart Failure Evidence Based Beta Ronna Not Indicated: LV Ejection Fraction > 40%
- Mineralocorticord Receptor Antagonist
Patient already on MRA: Yes
- SGLT-2 Inhibitor
Patient already on SGLT-2 Inhibitor: No
Heart Failure SGLT-2 Inhibitor Contraindication: Patient Refusal (UTIs)
- Afib Anticoagulation
Patient already on Anticoagulation for Afib: Yes
- NYHA CHF Classification
NYHA CHF Classification Level: Class III - Symptoms w/ min exertion, interferes w/ nml daily activity
- ACC/AHA Stage
ACC/AHA Stage: Stage C: Symptomatic Heart Failure
== END 2024-09-15 15:17 | disposition home health service (06) | DRG 291 ==
LOC: 4 EAST ACU 23:50
PROVIDERS: Emergency Medicine; Internal Medicine Cardiovascular Disease; Nurse Practitioner Family; Physician Assistant; ADMITTING PHYSICIAN Internal Medicine; ATTENDING PHYSICIAN Internal Medicine; EMERGENCY PHYSICIAN Emergency Medicine; FAMILY PHYSICIAN Nurse Practitioner Primary Care; OTHER PHYSICIAN Internal Medicine Cardiovascular Disease
PROC: 5A2204Z Restoration of Cardiac Rhythm, Single (ICD-10-PCS; 2024-09-14)
DX: I11.0 Hypertensive heart disease with heart failure (principal); I50.33 Acute on chronic diastolic (congestive) heart failure; N39.0 Urinary tract infection, site not specified; I48.92 Unspecified atrial flutter; F11.20 Opioid dependence, uncomplicated; I48.0 Paroxysmal atrial fibrillation; Z95.3 Presence of xenogenic heart valve; Z87.891 Personal history of nicotine dependence; E03.9 Hypothyroidism, unspecified; G40.909 Epilepsy, unspecified, not intractable, without status epilepticus; F41.9 Anxiety disorder, unspecified; F32.A Depression, unspecified; G20.A1 Parkinson's disease without dyskinesia, without mention of fluctuations; Z79.01 Long term (current) use of anticoagulants; Z79.899 Other long term (current) drug therapy
CPT/HCPCS: 71046; 80048; 80053; 80061; 81003; 83735; 83880; 84443; 84484; 85025; 87502; 87811; 92960; 93005; 93306; 96374; 97163; 97167; 97530; 99285; Q9957

== ENCOUNTER 2024-12-08 19:19 | Emergency (ER) | payer MEDICARE, OTHER, SELFPAY ==
[2024-12-08 19:20] VITALS: BP 109/69
[2024-12-08 19:42] LABS: % Basophils 0.6 % (0-2); % Eosinophils 0.1 % (0-6); % Immature Granulocytes 0.2 % (0-0.5); % Lymphocytes 11.6 % (20.5-51.1); % Monocytes 7.6 % (1.7-9.3); % Neutrophils 79.9 % (42.2-75.2); Absolute Basophils 0.1 10^3/uL (0-0.2); Absolute Lymphocytes 1.5 10^3/uL (1.2-3.4); Hematocrit 46.9 % (37.0-47.0); Hemoglobin 16.2 g/dL (12.0-16.0); Mean Corp Hgb Conc. 34.5 g/dL (33.0-37.0); Mean Corpuscular Hgb 29.9 pg (27.0-31.0); Mean Corpuscular Volume 86.7 fL (81.0-99.0); Mean Platelet Volume 9.2 fL (7.4-10.4); Nucleated Red Blood Cells % 0 %; Platelet Count 294 10^3/uL (130-400); Red Blood Cell Count 5.41 10^6/uL (4.20-5.40); White Blood Cell Count 12.5 10^3/uL (4.8-10.8)
[2024-12-08 20:01] LABS: ALT (SGPT) < 10 U/L (0-35); AST (SGOT) 22 U/L (14-36); Albumin 5.2 g/dl (3.5-5.0); Alkaline Phosphatase 82 U/L (38-126); Blood Urea Nitrogen 54 mg/dl (7-17); Chloride 83 mmol/L (98-107); Glucose 154 mg/dl (70-99); Potassium 3.4 mmol/L (3.5-5.1); Sodium 132 mmol/L (135-145); Total Bilirubin 1.1 mg/dl (0.2-1.3); Total Protein 8.6 g/dl (6.3-8.2); eGFR 57.66
[2024-12-08 20:04] LABS: NT-proBNP 4030 pg/ml
[2024-12-08 20:10] LABS: Carbon Dioxide 36 mmol/L (22-30)
[2024-12-08 20:24] LABS: Troponin I 0.013 ng/ml
[2024-12-08 22:05] VITALS: BMI 30.3
[2024-12-08 22:07] VITALS: BP 110/73
--- NOTE | 2024-12-08 22:22 | ED.GENMED ---
History of Present Illness
General
Chief Complaint: Cardiac Symptoms
Source: patient and family
Time Seen by Provider: 12/08/24 22:08
History of Present Illness
History of Present Illness:
This patient is a 79-year-old female with a history of atrial fibrillation who says she has been feeling a little bit more tired than usual the last few days. Then, today, while she was ironing a garment she started to feel her heart pounding and
felt sweaty. Family noted that she was possibly in A-fib and had her sit for about an hour without relief of symptoms which prompted her visit here. Patient, and review of systems, states that she has not had fever or chills. She denies abdominal
pain, chest pain. She does have an occasional cough and mild sore throat that started today. She states that she is very slightly dyspneic today. Of note, patient is under the care of her daughter whom she lives with who is very attentive. She
is extremely compliant with her medications and weighs herself every day. On Tuesday she was noted to have a 5 pound weight gain and was instructed to take the Tolazine. This resulted in a 7 pounds weight loss. She continues to take her diuretics
otherwise. Patient denies orthopnea or PND or new lower extremity edema.
Past History
Past History
ED Past Medical History: Arrthythmia, HTN, Other ('Parkinson's') and Other (Seizure D/O)
ED Past Surgical History: Cardiac (R carotid endarterectomy, mitral valve replacement) and Gynecological
Social History
Tobacco: Non-smoker
Alcohol: None
Drug: None
Personal:
Living: with family
Employment: Employed
Family History
Family History: Other (reviewed and non-contributory)
Phy Exam
Physical Exam
Physical Exam:
GENERAL: Alert , in no apparent distress
EYE: pupils equal and reactive, no photophobia
NECK: Supple, no significant adenopathy.
ENT: o/p clr, mm slightly dry
CARDIAC: Irregularly irregular, tachycardic
LUNGS: Clear breath sounds bilaterally, no acute respiratory distress, no wheezes rales or rhonchi
ABDOMEN: Soft, without focal tenderness, no r/g, no cvat
NEUROLOGICAL: Alert and oriented, no focal neuro deficits
SKIN: Warm and dry, skin intact.
MUSCULOSKELETAL: No edema, well perfused.
PSYCH: Normal and appropriate interaction.
Course
Orders/Labs/Results
Orders:
Orders
12/08/24 19:20
Electrocardiogram (*1) Urgent
Reason for Study: Atrial Fibrillation
12/08/24 19:21
EKG- Treatment ONCE
12/08/24 19:36
BNP [NT-proBNP] Urgent
Complete Blood Count/With Diff Urgent
Comprehensive Metabolic Panel Urgent
Troponin I Urgent
12/08/24 22:10
CR Chest - 2 Views Urgent
Comment:
Reason For Exam: afib
12/08/24 23:42
Propofol [Diprivan] 20 ml .ROUTE .STK-MED
12/09/24 00:17
EKG [Electrocardiogram (*1)] Urgent
Reason for Study: Tachycardia
EKG- Treatment ONCE
Abnormal Lab Results
12/08/24
19:36
WBC 12.5 H 10^3/uL
(4.8-10.8)
RBC 5.41 H 10^6/uL
(4.20-5.40)
Hgb 16.2 H g/dL
(12.0-16.0)
Absolute Neuts (auto) 10.0 H 10^3/uL
(1.4-6.5)
Absolute Monos (auto) 1.0 H 10^3/uL
(0.1-0.6)
Neutrophils % 79.9 H %
(42.2-75.2)
Lymphocytes % 11.6 L %
(20.5-51.1)
Sodium 132 L mmol/L
(135-145)
Potassium 3.4 L mmol/L
(3.5-5.1)
Chloride 83 L mmol/L
(98-107)
Carbon Dioxide 36 H mmol/L
(22-30)
BUN 54 H mg/dl
(7-17)
Glucose 154 H mg/dl
(70-99)
Total Protein 8.6 H g/dl
(6.3-8.2)
Albumin 5.2 H g/dl
(3.5-5.0)
12/08/24 19:36
12/08/24 19:36
Vital Signs
Initial and Last Documented VS:
Initial Vital Signs
Temp Pulse Resp BP Pulse Ox
98.5 F 91 16 109/69 99
12/08/24 19:20 12/08/24 19:20 12/08/24 19:20 12/08/24 19:20 12/08/24 19:20
Last Documented Vital Signs
Temp Pulse Resp BP Pulse Ox
98.0 F 74 13 131/75 99
12/09/24 02:27 12/09/24 01:03 12/09/24 01:03 12/09/24 01:03 12/09/24 01:03
Procedures
Cardioversion
Indication:: Afib
Performed by:: Zenia rowley
Synchronized?: Yes
Energy Used: Other (300)
Number of attempts: 2
Successful?: Yes
ASA Risk Score: Class II
Any reaction or bad outcome to prior sedation/anesthesia?: No history of a reaction
Sedation level to be attained: moderate
Chart and allergies reviewed: Yes
Patient reassessed prior to sedation: Yes
Time out completed at (validating right patient & procedure): 12:21
History of difficult intubation: No
Airway free of obstruction: Yes
Patient has a gag reflex: Yes
Patient is able to open mouth: Yes
Patient has no dentures: Yes
Patient has no loose teeth: Yes
Medication administered by Provider during Moderate Sedation: IV Propofol (mg)
Total dose administered: 50
Time drug administered: 12:22
Start Time: 12:21
Stop Time: 12:33
*Critical Care Note
Total Time (30-74mins, 75-104mins- exclusive of procedures): 33
Update Note
Update Note:
Patient presents to the Emergency Department with sweats and palpitations
Number and Complexity of Problems Addressed at the Encounter
� Chronic conditions affecting care:
� Acute Exacerbation and/or Progression of Chronic Illness:
� Differential Diagnosis includes: But not limited to A-fib, a flutter, heart failure, ACS, etc. etc.
Amount and/or Complexity of Data to be Reviewed and Analyzed
� I performed an independent evaluation of and my interpretation is:
EKG: Read by me, A-fib with RVR, no acute ischemia, LAD
CT:
Xrays:
Laboratory Studies: Nonspecific leukocytosis, mild renal insufficiency. Indeterminant Trope which I suspect is related to A-fib and not ischemia. BNP is elevated however patient does not have hypoxia, concerning chest x-ray,
respiratory distress, rales, etc.
Other:
� Review of other/old records reveals: Notes reviewed from August 2024 visit when patient was admitted with heart failure and A-fib requiring cardioversion.
� Clinical information was obtained by an independent historian: Daughter who is at bedside
� Prescriptions/Medications Considered but not given:
� Further testing considered but not performed:
Risk of Complications and/or Morbidity or Mortality of Patient Management
� Social determinants of health affecting care:
� Discussion with other providers (PCP, Hospitalists, Consultants, etc):
� Escalation of care including admission/observation vs risk of discharge considered: Status post cardioversion here after risk and benefits were explained and consent was signed and scanned into the chart, patient now awake
alert and in normal sinus rhythm no complaints. She has a very attentive daughter who is at bedside. They will be discharged home tonight with close instructions for cardiology follow-up on Tuesday morning.
ED Attending Note
-
Portions of this chart may have been created with voice recognition software.� Occasional wrong word or��sound alike� substitutions may have occurred due to the inherent limitations of voice recognition software.
Discharge Plan
Departure
Patient Disposition: Home (Routine Discharge)
Date of Disposition: 12/09/24
Time of Disposition: 01:43
Patient with high blood pressure during this ER visit?: Yes
Condition: Good
Discharge Problem:
A-fib, moderate sedation
Instructions: Atrial fibrillation, MODERATE SEDATION ADULT, BLOOD PRESSURE
Prescriptions:
No Action
clonazepam 1 MG tablet
2 mg PO DAILY@0000
omeprazole 40 MG capsule,delayed release(DR/EC)
40 mg PO DAILY@1600
paroxetine HCl 30 MG tablet
30 mg PO DAILY@1200
oxycodone 5 MG tablet
5 mg PO BID@0800,1200
clonazepam 1 mg Tablet
0.5 mg PO DAILY@1600
carbidopa-levodopa 25-100 mg tablet
2 tab PO 5/D@00,08,12,16,20
ropinirole 2 mg tablet extended release 24 hr
2 mg PO BID@0000,0800
Eliquis 5 MG tablet
5 mg PO BID@08,1999
gabapentin 250 mg/5 mL solution
300 mg PO TID@0800,1400,1999
spironolactone 25 mg tablet
50 mg PO DAILY
spironolactone 25 mg tablet
25 mg PO DAILY@1999
levothyroxine 100 mcg tablet
100 mcg PO DAILY@0700
ferrous sulfate [FeroSul] 325 mg (65 mg iron) tablet
325 mg PO DAILY@1400
oxycodone 5 mg tablet
5 mg PO BIDPRN PRN (Reason: moderate pain)
cholecalciferol (vitamin D3) 25 mcg (1,000 unit) Tablet
25 mcg PO DAILY@1200
PreserVision AREDS-2 250-90-40-1 mg Capsule
1 tab PO BID@1199,1999
clonazepam 1 mg Tablet
0.5 mg PO DAILYPRN PRN (Reason: anxiety)
acetaminophen [Tylenol Arthritis Pain] 650 mg Tablet Extended Release
1,300 mg PO DAILY@1200
hydrocortisone 2.5 % Cream
1 applic TOPICAL BIDPRN PRN (Reason: eczema rash)
coenzyme Q10 [CoQ-10] 100 mg Capsule
100 mg PO DAILY@1999
ropinirole 2 mg Tablet Extended Release 24 Hr
1 mg PO DAILYPRN PRN (Reason: Parkinson's symptoms)
potassium chloride 20 mEq tablet extended release
40 meq PO BID@1199,1999
metolazone 2.5 mg Tablet
2.5 mg PO DAILYPRN PRN (Reason: weight gain)
trazodone 50 mg Tablet
50 mg PO HSPRN PRN (Reason: sleep)
fexofenadine 180 mg Tablet
180 mg PO DAILY@0000
triamcinolone acetonide 0.1 % Cream
1 applic TOPICAL BIDPRN PRN (Reason: yeast infection)
estradiol 0.01 % (0.1 mg/gram) Cream
1 appful VAGINAL MOWE
ketoconazole 2 % Cream
1 applic TOPICAL BIDPRN PRN (Reason: yeast infection)
dofetilide 250 mcg capsule
250 mcg PO Q12H
torsemide 20 mg Tablet
40 mg PO DAILY@1400 Qty: 0 0RF
torsemide 40 mg tablet
80 mg PO DAILY@0800 Qty: 30 0RF
Referrals:
Yessica Martin CRNP [Family Provider] -
Activity Restrictions/Additional Instructions:
PLEASE CONTACT YOUR CONTINUOUS PROCESS MACHINE OPERATOR ON TUESDAY FOR FOLLOW-UP. IF YOU DEVELOP CHEST PAIN, PALPITATIONS, DIZZINESS, FEVER, CHILLS, TROUBLE BREATHING, OR OTHER WORRISOME SIGNS, PLEASE RETURN TO THE ER IMMEDIATELY! PLEASE TAKE YOUR MEDICATIONS YOU
TYPICALLY DO.
Interventions
Interventions:
*Risk Screen - Suicide Last Done: 12/08/24 19:20
*General Assessment Last Done: 12/08/24 22:05
*Neglect/Abuse Screening Last Done: 12/08/24 19:20
*ED- Fall Risk Assessment Last Done: 12/08/24 22:05
*ED COVID-19 Vaccine History Last Done: 12/08/24 22:05
*Nursing Disposition Last Done: 12/09/24 02:29
ED- Pulmonary Assessment Last Done: 12/08/24 22:37
ED- Cardiac Assessment Last Done: 12/08/24 22:37
Discharge Date and Time
Discharge Date/Time: 12/09/24 02:31
Print Language: OMANI
[2024-12-09] VITALS (7 sets, daily range): BP systolic 76–131; BP diastolic 58–84
--- NOTE | 2024-12-09 01:14 | EDRN ---
Patient is drinking water and has family at bedside, VSS
== END 2024-12-09 02:31 | disposition home or self-care (01) ==
LOC: EMR 19:19
PROVIDERS: Student in an Organized Health Care Education/Training Program; EMERGENCY PHYSICIAN Emergency Medicine; FAMILY PHYSICIAN Nurse Practitioner Primary Care
DX: I48.91 Unspecified atrial fibrillation (principal); R53.83 Other fatigue; J02.9 Acute pharyngitis, unspecified; R06.00 Dyspnea, unspecified; R05.9 Cough, unspecified; I10 Essential (primary) hypertension; N28.9 Disorder of kidney and ureter, unspecified; G20.A1 Parkinson's disease without dyskinesia, without mention of fluctuations; G40.909 Epilepsy, unspecified, not intractable, without status epilepticus; Z95.2 Presence of prosthetic heart valve; Z79.01 Long term (current) use of anticoagulants; Z88.6 Allergy status to analgesic agent; Z91.040 Latex allergy status; Z88.5 Allergy status to narcotic agent; Z88.2 Allergy status to sulfonamides; Z88.8 Allergy status to other drugs, medicaments and biological substances; Z91.018 Allergy to other foods; Z91.048 Other nonmedicinal substance allergy status
CPT/HCPCS: 92960; 99285; 99152; 71046; 80053; 83880; 84484; 85025; 93005

== ENCOUNTER 2025-01-07 06:16 | Day surgery (SDC) | payer MEDICARE, OTHER, SELFPAY ==
[2025-01-07] VITALS (8 sets, daily range): BP systolic 87–127; BP diastolic 43–90; BMI 29.9
[2025-01-07] MEDS: CYSVIEW KIT 100 MG INTRAVES (09:05)
[2025-01-07] MEDS: NORMOSOL-R/PLASMALYTE-A 1000 IV (09:06)
== END 2025-01-07 12:45 | disposition home or self-care (01) ==
LOC: SDS 06:16
PROVIDERS: ATTENDING PHYSICIAN Surgery
DX: N30.20 Other chronic cystitis without hematuria (principal)
CPT/HCPCS: 52204; C9738; 88305; A9589

== ENCOUNTER 2025-01-17 04:23 | Emergency (ER) | payer MEDICARE, OTHER, SELFPAY ==
[2025-01-17] VITALS (9 sets, daily range): BP systolic 106–128; BP diastolic 42–74; BMI 31.7
[2025-01-17 04:52] LABS: % Basophils 0.6 % (0-2); % Eosinophils 0.6 % (0-6); % Immature Granulocytes 0.3 % (0-0.5); % Lymphocytes 6.5 % (20.5-51.1); % Monocytes 4.6 % (1.7-9.3); % Neutrophils 87.4 % (42.2-75.2); Absolute Basophils 0.1 10^3/uL (0-0.2); Absolute Eosinophils 0.1 10^3/uL (0-0.7); Absolute Lymphocytes 0.9 10^3/uL (1.2-3.4); Absolute Monocytes 0.7 10^3/uL (0.1-0.6); Absolute Neutrophils 12.5 10^3/uL (1.4-6.5); Hematocrit 37.3 % (37.0-47.0); Hemoglobin 12.6 g/dL (12.0-16.0); Mean Corp Hgb Conc. 33.8 g/dL (33.0-37.0); Mean Corpuscular Hgb 31.2 pg (27.0-31.0); Mean Corpuscular Volume 92.3 fL (81.0-99.0); Mean Platelet Volume 9.6 fL (7.4-10.4); Nucleated Red Blood Cells % 0 %; Platelet Count 262 10^3/uL (130-400); Red Blood Cell Count 4.04 10^6/uL (4.20-5.40); Red Cell Dist. Width 12.8 % (11.5-14.5); White Blood Cell Count 14.3 10^3/uL (4.8-10.8)
--- NOTE | 2025-01-17 04:52 | ED.GENMED ---
History of Present Illness
<Vickie Long DO - Last Filed: 01/17/25 05:57>
General
Chief Complaint: Abdominal Symptoms
Source: patient, ambulance crew and previous hospital records
Exam Limitations: none
Time Seen by Provider: 01/17/25 04:28
Nursing documentation reviewed up to this point in time: agreed with
History of Present Illness
History of Present Illness:
This is a 79-year-old woman who resides at home. She has history of paroxysmal A-fib chronically maintained on Eliquis. History of hypertension, CHF, GERD, Parkinson's disease, hypothyroidism, neuropathy, chronic pain syndrome�narcotic dependent,
anxiety.
She underwent bladder biopsy 10 days ago, reports results were negative.
She states she ate a late dinner tonight around 7 PM consisting of pizza which is unusual for her. She generally maintains a healthy, low-fat diet. She fell asleep shortly after dinner but then awoke 2 to 3 hours later with abrupt onset of
moderate to severe epigastric pain that radiated to her back accompanied with nausea, several episodes of vomiting. Questionably minimal temporary relief with Rolaids but epigastric abdominal pain persisted prompting 911 call. She does have
history of intermittent GERD but states current symptoms were quite different from previous GERD episodes.
She denies diarrhea or constipation, denies chest pain, no palpitations, no cough no shortness of breath.
Currently symptoms are improving, nausea has resolved and epigastric abdominal pain is near resolved to now completely resolved.
Past History
<Vickie Long DO - Last Filed: 01/17/25 05:57>
Past History
ED Past Medical History: Arrthythmia (Paroxysmal atrial fibrillation), CHF (Heart failure with preserved EF), COPD, CVA (Ocular CVA), HTN, Seizures, Hypothyroidism, Psychiatric (Anxiety, chronically maintained on Klonopin), Other (Carotid artery
disease; restless leg syndrome), Other ('Parkinson's') and Other (Seizure D/O; chronic pain syndrome-narcotic dependent, neuropathy); Negative CAD
ED Past Surgical History: Appendectomy (With hysterectomy 1988), Cardiac (R carotid endarterectomy, mitral valve replacement; A-fib ablations. Cardiac catheterization 2006-no CAD), Gynecological (Hysterectomy 1988), Orthopedic (Right knee
replacement 2017) and Urological (Bladder biopsy January 07, 2025-benign findings.)
Social History
Tobacco: Non-smoker
Alcohol: None
Drug: None
Personal:
Living: with family (Resides with her daughter)
Employment: Retired
Family History
Family History: Other (reviewed and non-contributory)
Phy Exam
<Vickie Long DO - Last Filed: 01/17/25 05:57>
Physical Exam
Physical Exam:
GENERAL: 79-year-old overweight woman appears her stated age, awake and alert, oriented x 3, pleasant, easily communicative and in no acute distress.
EYE: anicteric
NECK: Supple, nontender, no meningismus, no significant adenopathy.
ENT: oral mucosa is moist. No rhinorrhea.
CARDIAC: Regular rate and rhythm. no murmur.
LUNGS: Clear breath sounds bilaterally, no acute respiratory distress, no wheezes/rales/rhonchi
ABDOMEN: Rotund, soft, nondistended, minimal epigastric tenderness with deep palpation only, no r/g, no cvat. normoactive BS.
NEUROLOGICAL: Alert and oriented x3, no focal neuro deficits. Mild resting tremor of upper extremities as well as mild resting tremor of the mandible.
SKIN: Warm and dry, normal color, skin intact. No rash.
MUSCULOSKELETAL: No C/C/E. peripheral pulses are full and equal b/l. No palpable tenderness.
PSYCH: Normal and appropriate interaction.
Course
<Vickie Long DO - Last Filed: 01/17/25 05:57>
Orders/Labs/Results
Orders:
Orders
01/17/25 04:33
IV Insert/Care/Rem.- Treatment PRN
01/17/25 04:34
Electrocardiogram (*1) Urgent
Reason for Study: Abdominal Pain
EKG- Treatment ONCE
01/17/25 04:39
Complete Blood Count/With Diff Urgent
Comprehensive Metabolic Panel Urgent
Lipase Urgent
01/17/25 04:58
Lactic Acid Urgent
Troponin I Urgent
01/17/25 05:52
US Abdomen Complete/Upper Urgent
Comment:
Reason For Exam: acute epigastric abd pain, elev T.bili, AST
Abnormal Lab Results
01/17/25
04:39
WBC 14.3 H 10^3/uL
(4.8-10.8)
RBC 4.04 L 10^6/uL
(4.20-5.40)
MCH 31.2 H pg
(27.0-31.0)
Absolute Neuts (auto) 12.5 H 10^3/uL
(1.4-6.5)
Absolute Lymphs (auto) 0.9 L 10^3/uL
(1.2-3.4)
Absolute Monos (auto) 0.7 H 10^3/uL
(0.1-0.6)
Neutrophils % 87.4 H %
(42.2-75.2)
Lymphocytes % 6.5 L %
(20.5-51.1)
Creatinine 0.5 L mg/dL
(0.6-1.0)
Glucose 158 H mg/dl
(70-99)
Total Bilirubin 1.6 H mg/dl
(0.2-1.3)
AST 99 H U/L
(14-36)
01/17/25 04:39
01/17/25 04:39
Vital Signs
Initial and Last Documented VS:
Initial Vital Signs
Temp Pulse Resp BP Pulse Ox
98.3 F 79 20 110/42 97
01/17/25 04:26 01/17/25 04:26 01/17/25 04:26 01/17/25 04:26 01/17/25 04:26
Last Documented Vital Signs
Temp Pulse Resp BP Pulse Ox
98.3 F 83 18 118/63 91
01/17/25 04:26 01/17/25 06:00 01/17/25 06:00 01/17/25 06:00 01/17/25 06:00
<Marycruz Burleson, - Last Filed: 01/17/25 07:55>
Orders/Labs/Results
Orders:
Orders
01/17/25 04:33
IV Insert/Care/Rem.- Treatment PRN
01/17/25 04:34
Electrocardiogram (*1) Urgent
Reason for Study: Abdominal Pain
EKG- Treatment ONCE
01/17/25 04:39
Complete Blood Count/With Diff Urgent
Comprehensive Metabolic Panel Urgent
Lipase Urgent
01/17/25 04:58
Lactic Acid Urgent
Troponin I Urgent
01/17/25 05:52
US Abdomen Complete/Upper Urgent
Comment:
Reason For Exam: acute epigastric abd pain, elev T.bili, AST
Abnormal Lab Results
01/17/25
04:39
WBC 14.3 H 10^3/uL
(4.8-10.8)
RBC 4.04 L 10^6/uL
(4.20-5.40)
MCH 31.2 H pg
(27.0-31.0)
Absolute Neuts (auto) 12.5 H 10^3/uL
(1.4-6.5)
Absolute Lymphs (auto) 0.9 L 10^3/uL
(1.2-3.4)
Absolute Monos (auto) 0.7 H 10^3/uL
(0.1-0.6)
Neutrophils % 87.4 H %
(42.2-75.2)
Lymphocytes % 6.5 L %
(20.5-51.1)
Creatinine 0.5 L mg/dL
(0.6-1.0)
Glucose 158 H mg/dl
(70-99)
Total Bilirubin 1.6 H mg/dl
(0.2-1.3)
AST 99 H U/L
(14-36)
01/17/25 04:39
01/17/25 04:39
Vital Signs
Initial and Last Documented VS:
Initial Vital Signs
Temp Pulse Resp BP Pulse Ox
98.3 F 79 20 110/42 97
01/17/25 04:26 01/17/25 04:26 01/17/25 04:26 01/17/25 04:26 01/17/25 04:26
Last Documented Vital Signs
Temp Pulse Resp BP Pulse Ox
98.3 F 83 18 118/63 91
01/17/25 04:26 01/17/25 06:00 01/17/25 06:00 01/17/25 06:00 01/17/25 06:00
<Vickie Long DO - Last Filed: 01/17/25 05:57>
MDM/Problems Addressed
Differential Diagnosis Includes:
Concern for acute gastritis/GERD, acute biliary colic/cholecystitis, acute pancreatitis, small bowel obstruction, ischemic bowel, ACS.
Currently pain-free and comfortable. No further nausea.
Will check labs including LFTs, lipase, troponin, lactic acid.
Will check EKG.
Will consider imaging depending on clinical course and laboratory studies.
MDM/Problems Addressed:
History of PAF with episode May of this year requiring electrical cardioversion.
Monitor currently shows normal sinus rhythm. Patient denies palpitations. Has been compliant with Eliquis, dofetilide.
History of neuropathy, chronic pain, maintained on oxycodone. Compliant with medications. No history of diversion. Denies increase in chronic pain issues. Likely not a contributing factor.
History of Parkinson's disease, mild resting tremor noted.
History of GERD, chronically maintained on omeprazole. Fatty meal for dinner may have contributed to exacerbation of GERD.
History of total abdominal hysterectomy, appendectomy. Patient at risk for intra-abdominal adhesions�small bowel obstruction.
Chronic conditions affecting care: Cardiomyopathy, Arrhythmia, Neurological disorder and Previous abdomnial surgery
<Vickei Long DO - Last Filed: 01/17/25 05:57>
*Pulse Oximetry
SaO2: 97
Oxygen Mode of Delivery: Room air
Patient hypoxic: no
*EKG
Interpreted by ED Provider?: Yes
Comparison EKG: no changes (Unchanged from previous December 09, 2024.)
Rate: normal
Rhythm: sinus
[place]: normal axis
Interval: first degree heart block and long QT
QRS Pattern: normal QRS and poor R-wave progression
Ischemia: no ischemia
*Wire Galvanizer Interpretation
Rate: normal
Interpretation: normal
Rhythm: sinus
*Critical Care Note
Total Time (30-74mins, 75-104mins- exclusive of procedures): Not Applicable
<Vickie Long DO - Last Filed: 01/17/25 05:57>
Update Note
Update Note:
05:50
Patient remains pain-free and comfortable.
Labs show mildly elevated white blood cell count of 14.3.
Lactic acid is normal.
Mildly elevated T. bili 1.6, mildly elevated AST of 99. Both have trended up from previous. Lipase is normal. Troponin is negative.
With elevated T. bili, AST, concern for acute biliary colic thus will check abdominal ultrasound.
<Marycruz Burleson DO - Last Filed: 01/17/25 07:55>
Update Note
Update Note:
05:50
Patient remains pain-free and comfortable.
Labs show mildly elevated white blood cell count of 14.3.
Lactic acid is normal.
Mildly elevated T. bili 1.6, mildly elevated AST of 99. Both have trended up from previous. Lipase is normal. Troponin is negative.
With elevated T. bili, AST, concern for acute biliary colic thus will check abdominal ultrasound.
Attending Signout Note (Marycruz Burleson DO)
06:10 -assumed patient, 79-year-old female with history of A-fib, Parkinson's, CAD, GERD presenting for upper abdominal pain with radiation to her back. Notes that she woke up with the symptoms. Does report preceding symptoms, did have pizza last
night, which is unusual for her to eat. Denies chest pain or difficulty breathing. Vital signs stable. EKG unremarkable. On arrival to the ER, notes that symptoms had improved, currently pain-free. Suspicion for GERD versus gastritis versus
biliary colic versus cholecystitis. Labs show mild leukocytosis and elevated bilirubin. For this reason pending ultrasound imaging of the right upper quadrant
07:55 -ultrasound without significant abnormality. On reassessment patient remained stable. No focal tenderness to the right upper quadrant or the abdomen. Feel stable for discharge with close and will follow-up. Continue to suspect gas
pathology versus biliary colic. Return precautions discussed with patient and daughter at bedside who verbalized understanding
ED Attending Note
<Vickie oLng DO - Last Filed: 01/17/25 05:57>
-
Portions of this chart may have been created with voice recognition software.� Occasional wrong word or��sound alike� substitutions may have occurred due to the inherent limitations of voice recognition software.
Discharge Plan
Departure
Prescriptions:
No Action
clonazepam 1 MG tablet
2 mg PO DAILY@0000
omeprazole 40 MG capsule,delayed release(DR/EC)
40 mg PO DAILY@1600
oxycodone 5 MG tablet
5 mg PO BID@0800,1200
clonazepam 1 mg Tablet
0.5 mg PO DAILY@1600
carbidopa-levodopa 25-100 mg tablet
2 tab PO 5/D@00,08,12,16,20
ropinirole 2 mg tablet extended release 24 hr
1 mg PO .0800 AM
Eliquis 5 MG tablet
5 mg PO BID@08,1999
gabapentin 250 mg/5 mL solution
300 mg PO TID@0800,1400,1999
spironolactone 25 mg tablet
50 mg PO DAILY@0800
spironolactone 25 mg tablet
25 mg PO DAILY@1999
levothyroxine 100 mcg tablet
100 mcg PO DAILY@0700
ferrous sulfate [FeroSul] 325 mg (65 mg iron) tablet
325 mg PO .Q8PM
oxycodone 5 mg tablet
5 mg PO BIDPRN PRN (Reason: moderate pain)
cholecalciferol (vitamin D3) 25 mcg (1,000 unit) Tablet
25 mcg PO DAILY@1200
PreserVision AREDS-2 250-90-40-1 mg Capsule
1 tab PO BID@1199,1999
clonazepam 1 mg Tablet
0.5 mg PO DAILYPRN PRN (Reason: anxiety)
acetaminophen [Tylenol Arthritis Pain] 650 mg Tablet Extended Release
1,300 mg PO .Q12H
hydrocortisone 2.5 % Cream
1 applic TOPICAL BIDPRN PRN (Reason: eczema rash)
coenzyme Q10 [CoQ-10] 100 mg Capsule
100 mg PO DAILY@1999
ropinirole 2 mg Tablet Extended Release 24 Hr
1 mg PO DAILYPRN PRN (Reason: Parkinson's symptoms)
potassium chloride 20 mEq tablet extended release
40 meq PO BID@1199,1999
metolazone 2.5 mg Tablet
2.5 mg PO DAILYPRN PRN (Reason: weight gain)
fexofenadine 180 mg Tablet
180 mg PO DAILY@0000
triamcinolone acetonide 0.1 % Cream
1 applic TOPICAL BIDPRN PRN (Reason: yeast infection)
estradiol 0.01 % (0.1 mg/gram) Cream
1 appful VAGINAL MOWE
ketoconazole 2 % Cream
1 applic TOPICAL BIDPRN PRN (Reason: yeast infection)
dofetilide 250 mcg capsule
250 mcg PO Q12H
paroxetine HCl 40 mg Tablet
40 mg PO DAILY@1200
torsemide 20 mg tablet
40 mg PO DAILY@2000
torsemide 40 mg tablet
80 mg PO DAILY@0800
atorvastatin 20 mg Tablet
20 mg PO DAILY
cephalexin 500 mg Tablet
500 mg PO Q12H
ropinirole 2 mg Tablet
2 mg PO .Q2300
Referrals:
UNKNOWN - PT DOES,NOT KNOW [Unknown Provider]
Interventions
Interventions:
*Risk Screen - Suicide Last Done: 01/17/25 04:26
*General Assessment Last Done: 01/17/25 04:26
*Neglect/Abuse Screening Last Done: 01/17/25 04:26
*ED COVID-19 Vaccine History Last Done: 01/17/25 04:26
OF-[facility] Assessment Last Done: 01/17/25 04:45
Discharge Date and Time
Print Language: CZECH
[2025-01-17 05:32] LABS: Lactic Acid 1.8 mmol/L (0.7-2.0)
[2025-01-17 05:39] LABS: Troponin I < 0.012 ng/ml
[2025-01-17 05:39] LABS: ALT (SGPT) 14 U/L (0-35); AST (SGOT) 99 U/L (14-36); Albumin 4.4 g/dl (3.5-5.0); Alkaline Phosphatase 106 U/L (38-126); Blood Urea Nitrogen 17 mg/dl (7-17); Carbon Dioxide 28 mmol/L (22-30); Chloride 99 mmol/L (98-107); Estimated Creatinine Clearance 87 ml/min; Glucose 158 mg/dl (70-99); Lipase 197 U/L (23-300); Potassium 3.8 mmol/L (3.5-5.1); Sodium 137 mmol/L (135-145); Total Bilirubin 1.6 mg/dl (0.2-1.3); Total Protein 7.1 g/dl (6.3-8.2); eGFR > 60.00
== END 2025-01-17 08:15 | disposition home or self-care (01) ==
LOC: EMR 04:23
PROVIDERS: Emergency Medicine; EMERGENCY PHYSICIAN Student in an Organized Health Care Education/Training Program; FAMILY PHYSICIAN Nurse Practitioner Primary Care
DX: K21.9 Gastro-esophageal reflux disease without esophagitis (principal); I48.0 Paroxysmal atrial fibrillation; I11.0 Hypertensive heart disease with heart failure; I50.9 Heart failure, unspecified; I25.10 Atherosclerotic heart disease of native coronary artery without angina pectoris; E03.9 Hypothyroidism, unspecified; J44.9 Chronic obstructive pulmonary disease, unspecified; Z86.73 Personal history of transient ischemic attack (TIA), and cerebral infarction without residual deficits; G20.A1 Parkinson's disease without dyskinesia, without mention of fluctuations; Z79.01 Long term (current) use of anticoagulants; Z95.4 Presence of other heart-valve replacement
CPT/HCPCS: 99284; 76700; 80053; 83605; 83690; 84484; 85025; 93005

== ENCOUNTER → 2025-03-05 15:42 | Outpatient (REF) | payer MEDICARE, OTHER, SELFPAY ==
[2025-03-05 16:39] LABS: Blood Urea Nitrogen 13 mg/dl (7-17); Calcium 9.5 mg/dl (8.4-10.2); Carbon Dioxide 32 mmol/L (22-30); Chloride 93 mmol/L (98-107); Glucose 114 mg/dl (70-99); Iron 69 ug/dl (37-170); Potassium 4.6 mmol/L (3.5-5.1); Sodium 135 mmol/L (135-145); eGFR > 60.00
[2025-03-05 16:48] LABS: Total Iron Binding Capacity 330 ug/dl (265-497)
[2025-03-05 16:57] LABS: Vitamin D, 25-OH*** 28.4 ng/mL (30-80)
[2025-03-05 17:16] LABS: Ferritin 121.0 ng/ml (11.1-264.0)
[2025-03-05 17:47] LABS: Folate 8.7 ng/ml (2.76-20); Vitamin B12 613 pg/ml (239-931)
[2025-03-06 11:06] LABS: Glycohemoglobin (HgbA1c) 6.2 % (4.0-5.6)
== END ==
LOC: REG 15:42
PROVIDERS: ATTENDING PHYSICIAN Nurse Practitioner Primary Care
DX: Z79.899 Other long term (current) drug therapy (principal); R73.03 Prediabetes; D64.9 Anemia, unspecified
CPT/HCPCS: 36415; 80048; 82306; 82607; 82728; 82746; 83036; 83540; 83550

== ENCOUNTER 2025-04-08 21:35 | Inpatient (IN) | payer MEDICARE, OTHER, SELFPAY ==
[2025-04-08 13:59] VITALS: BP 135/54
[2025-04-08 14:20] LABS: Hematocrit 39.5 % (37.0-47.0); Hemoglobin 13.1 g/dL (12.0-16.0); Mean Corp Hgb Conc. 33.2 g/dL (33.0-37.0); Mean Corpuscular Volume 92.3 fL (81.0-99.0); Nucleated Red Blood Cells % 0 %; Platelet Count 286 10^3/uL (130-400); Red Cell Dist. Width 12.1 % (11.5-14.5)
[2025-04-08 14:32] LABS: ALT (SGPT) < 10 U/L (0-35); AST (SGOT) 17 U/L (14-36); Albumin 5.0 g/dl (3.5-5.0); Alkaline Phosphatase 98 U/L (38-126); Blood Urea Nitrogen 17 mg/dl (7-17); Calcium 9.4 mg/dl (8.4-10.2); Carbon Dioxide 36 mmol/L (22-30); Chloride 91 mmol/L (98-107); Glucose 126 mg/dl (70-99); Potassium 4.3 mmol/L (3.5-5.1); Sodium 135 mmol/L (135-145); Total Protein 8.0 g/dl (6.3-8.2); eGFR > 60.00
[2025-04-08 19:49] VITALS: BMI 29.0
[2025-04-08] MEDS: ANCEF 10 IV (19:53)
[2025-04-08 19:55] VITALS: BP 118/64
[2025-04-08 20:00] VITALS: BP 107/53
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
[2025-04-08 21:00] VITALS: BP 113/60
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
[2025-04-08 22:00] VITALS: BP 112/53
[2025-04-08 22:56] VITALS: BMI 29.2
[2025-04-08] MEDS: SINEMET 25-100 2 TABLET PO (23:02)
[2025-04-08] MEDS: ROXICODONE 5 MG PO (23:02)
[2025-04-08] MEDS: TIKOSYN PO (23:18)
[2025-04-08 23:22] VITALS: BP 124/44; BMI 29.2
--- NOTE | 2025-04-08 23:30 | PTCARENOTE ---
Pt arrived from the ED via stretcher accompanied by daughter. Daughter is pt's primary caregiver. Pt AAOx3, VSS. RLE redness/warmth/edema. Pt pulled over onto the bed. Daughter and pt requested purewick due to heavy incontinent during the night.
Both educated on skin breakdown and risk for infection. Pt oriented to the room. Call pope is within reach. Latex band and fall band applied. Bed alarm in place.
[2025-04-08] MEDS: NON-FORMULARY ITEM 1 MG PO (23:31)
[2025-04-08] MEDS: KLONOPIN 2 MG PO (23:31)
[2025-04-09] VITALS (8 sets, daily range): BP systolic 104–131; BP diastolic 41–67; PULSE 71; O2SAT 93; BMI 29.6
[2025-04-09] MEDS: ANCEF 10 IV ×3 (04:53→20:21)
[2025-04-09] MEDS: SYNTHROID 100 MCG PO (04:53)
[2025-04-09 07:29] LABS: Hematocrit 37.9 % (37.0-47.0); Hemoglobin 12.6 g/dL (12.0-16.0); Mean Corp Hgb Conc. 33.2 g/dL (33.0-37.0); Mean Corpuscular Volume 93.6 fL (81.0-99.0); Platelet Count 282 10^3/uL (130-400); Red Cell Dist. Width 11.9 % (11.5-14.5)
[2025-04-09 07:40] LABS: Blood Urea Nitrogen 14 mg/dl (7-17); Calcium 9.4 mg/dl (8.4-10.2); Carbon Dioxide 35 mmol/L (22-30); Chloride 93 mmol/L (98-107); Estimated Creatinine Clearance 87 ml/min; Glucose 111 mg/dl (70-99); Potassium 4.1 mmol/L (3.5-5.1); Sodium 136 mmol/L (135-145); eGFR > 60.00
[2025-04-09] MEDS: NEURONTIN 300 MG PO ×3 (07:47→20:22)
[2025-04-09] MEDS: LOTRIMIN 1% CREAM 1 APPLIC TOPICAL ×2 (07:48→20:22)
[2025-04-09] MEDS: ROXICODONE 5 MG PO ×5 (07:48→22:31)
[2025-04-09] MEDS: TIKOSYN 250 MCG PO ×2 (07:48→20:21)
[2025-04-09] MEDS: ELIQUIS 5 MG PO (07:49)
[2025-04-09] MEDS: LIPITOR 20 MG PO (07:49)
[2025-04-09] MEDS: ALDACTONE 50 MG PO (07:49)
[2025-04-09] MEDS: DEMADEX 80 MG PO (07:50)
[2025-04-09] MEDS: SINEMET 25-100 2 TABLET PO ×5 (07:51→22:31)
--- NOTE | 2025-04-09 10:09 | WOUNDNOTE ---
[facility] RN note: Patient admitted with cellulitis of R leg
See H&P for complete history. Lives with daughter.
PMH: GERD, hypothyroidism, seizures, Parkinson disease, A-fib, ocular stroke, COPD, diastolic heart failure, constipation, UTI, anxiety, right carotid artery stenosis, hypertension, iron deficiency anemia, left subclavian artery stenosis, pulmonary
nodule, temporal arteritis
Past Surgical History: Reports Other
Additional Past Surgical History:
Hysterectomy, right CEA, cardiac ablation, cataract surgery, right TKR, mitral valve replacement, bladder suspension, appendectomy, tubal ligation
Wound Location and type/assessment: Patient admitted with: R leg cellulitis, medial lower leg red and swollen no open ulcers on either leg. + palpable pedal pulses, heels intact. Sacrum blanchable red, MASD. L buttock stage 1 PI vs MASD, Calazime
in use. Received patient ambulating to chair with PT, able to stand with one assist from chair.
Appetite: Good.
Pressure redistribution devices in place: Accumax, elevated legs with foot stool, pillow under calves.
Plan: Sahil wraps applied to lower legs knee high, leg elevation. Continue with Calazime for buttocks. Turning schedule when in bed, can add air overlay if becomes difficult to turn. Will confirm orders with hospitalist and updated nurse.
Updated care plan and will follow as needed.
Note to case management of equipment requested for discharge: none
Recommend follow up at wound care center upon discharge.
--- NOTE | 2025-04-09 10:10 | WOUNDNOTE ---
BILATERAL LOWER EXTREMITIES
--- NOTE | 2025-04-09 10:11 | WOUNDNOTE ---
RIGHT MEDIAL LOWER LEG
[2025-04-09] MEDS: KCL 40 MEQ PO ×2 (12:30→20:20)
[2025-04-09] MEDS: PAXIL 40 MG PO (12:31)
--- NOTE | 2025-04-09 13:43 | W.PN.HOSP.TC ---
Today's Communication/Plan
-
see note
Assessment / Plan
Assessment / Plan
CT RLE w IV contrast
mall hematoma of the medial distal right lower extremity with associated small focus of active bleeding..
Mild edematous soft tissue change of the entire imaged right lower extremity.
Mild dorsal midfoot osteoarthritis.
1. Right ankle level hematoma
Fall from motorized wheelchair
- Ankle x-ray with impression No acute fracture or dislocation. The alignment at the ankle mortise is maintained. Plantar calcaneal enthesophyte. Soft tissue swelling about the ankle.
- CT RLE -official read pending although patient dextroposition in right ankle hematoma. Images reviewed
- Patient got Eliquis dose in the morning today, hold further dosing
- No signs of compartment syndrome. Vascular surgeon requested to follow
2. Paroxysmal atrial fibrillation
History of cardioversion
- On Tikosyn. Normal renal function QTc 476 ms.
- Eliquis on hold due to bleed
3. History of Parkinson's disease
- Follows up with neurologist at [facility]
- Uses motorized wheelchair to get around
- Continue home regimen of Sinemet/Paxil/Klonopin
4. Chronic diastolic congestive heart failure
- Echocardiogram in September 18 showing EF 55 to 60%. Bioprosthetic mitral valve.
- Maintain on home dose of torsemide/Aldactone
- Monitor for signs of volume overload/HF exacerbation
5. Hypothyroidism
-levothyroxine continued
6. HLD
-statin continued
7. GERD
-PPI continued
DVT ppx - hold eliquis
Full code
Total time spent : 54 mins
Anticipated Discharge: 24 - 48 hours
Subjective/Interval History
-
Date of Service: April 09, 2025
Complain of some right leg pain
No spasms
Objective Data
-
Labs:
Laboratory Results
04/09/25
06:59
WBC 8.7
Hgb 12.6
Hct 37.9
Plt Count 282
Sodium 136
Potassium 4.1
Chloride 93 L
Carbon Dioxide 35 H
BUN 14
Creatinine 0.6
Glucose 111 H
Calcium 9.4
Vital Signs:
Vital Signs
Temp Pulse Resp BP Pulse Ox
97.5 F 65 12 114/50 93
04/09/25 11:00 04/09/25 11:00 04/09/25 11:00 04/09/25 11:00 04/09/25 11:00
I&O
04/08/25 04/09/25 04/10/25
06:59 06:59 06:59
Intake Total 960 / 960
Output Total 400 / 400
Balance 560 / 560
Review of Systems
-
Respiratory: Reports No Symptoms
Cardiac: Reports No Symptoms
Abdomen/GI: Reports No Symptoms
Physical Exam
-
General: No Apparent Distress
HEENT: Negative Oxygen
GI: Soft, Nontender and Nondistended
Musculoskeletal: Edema, Right Upper Extrem (wrapped in SHEILA bandage)
Neuro: Awake, Alert, Oriented and Tremors
Psych: Calm
--- NOTE | 2025-04-09 14:14 | PTCARENOTE ---
Asked to come and speak with patient and daughter about use of PureWick. Patient does not meet established criteria for PureWick usage. Daughter insisting that patient be able to wear PureWick-currently wears at bedtime at home. Explained to
patient and daughter the potential risks associated with PureWick usage. Both daughter and patient agreeable to accept risks-and insist that PureWick be placed at HS. Primary RN made aware of plan.
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
--- NOTE | 2025-04-09 15:40 | CM ---
Alert awake oriented patient who lives with her dgt KELLY son in law in a 1 story home with 1 steps to enter.She is assisted in activates of daily living.She does not drive .She used a walker and wheelchair at home.PT OT evals needed for dc planning.
Had [facility] in past [facility] hx
Pharmacy [facility]
PCP Dr Connell
PLAN PT OT evals needed for dc planning.
[2025-04-09] MEDS: PROTONIX 40 MG PO (16:04)
[2025-04-09] MEDS: DEMADEX 40 MG PO (20:20)
[2025-04-09] MEDS: ALDACTONE 25 MG PO (20:20)
[2025-04-09] MEDS: KLONOPIN 2 MG PO (22:31)
[2025-04-09] MEDS: NON-FORMULARY ITEM 1 MG PO (22:32)
--- NOTE | 2025-04-09 22:52 | PTCARENOTE ---
Patient complained of pain in B/L LE due to SAHIL wraps. Stated her toes were beginning to become numb. Sahil wraps removed for the night.
--- NOTE | 2025-04-10 02:33 | DOWNTIME ---
There was a [employer] Downtime on 04/10/2025 from 0100 to 04/10/2025 at 0215. Downtime documentation of patient's care, including medication administrations, has been reconciled in the electronic record per guidelines. Refer to the
patient's paper chart under the miscellaneous tab to see printed paper medication records and downtime forms.
[2025-04-10 03:55] VITALS: BP 114/52
[2025-04-10] MEDS: ANCEF 10 IV ×3 (04:57→20:38)
[2025-04-10] MEDS: SYNTHROID 100 MCG PO (04:57)
[2025-04-10 06:00] VITALS: BMI 29.0
[2025-04-10 07:00] VITALS: BP 122/53
[2025-04-10 08:19] LABS: Hematocrit 38.3 % (37.0-47.0); Hemoglobin 12.6 g/dL (12.0-16.0); Mean Corp Hgb Conc. 32.9 g/dL (33.0-37.0); Mean Corpuscular Volume 93.2 fL (81.0-99.0); Platelet Count 282 10^3/uL (130-400); Red Cell Dist. Width 12.0 % (11.5-14.5)
[2025-04-10] MEDS: DEMADEX 80 MG PO (08:27)
[2025-04-10] MEDS: TIKOSYN 250 MCG PO ×2 (08:29→20:39)
[2025-04-10] MEDS: LIPITOR 20 MG PO (08:30)
[2025-04-10] MEDS: ALDACTONE 50 MG PO (08:30)
[2025-04-10] MEDS: NEURONTIN 300 MG PO ×3 (08:30→20:40)
[2025-04-10] MEDS: LOTRIMIN 1% CREAM 1 APPLIC TOPICAL ×2 (08:31→20:41)
[2025-04-10] MEDS: SINEMET 25-100 2 TABLET PO ×4 (08:32→20:56)
[2025-04-10] MEDS: ROXICODONE 5 MG PO ×5 (08:33→21:47)
[2025-04-10 09:20] LABS: Blood Urea Nitrogen 15 mg/dl (7-17); Calcium 9.0 mg/dl (8.4-10.2); Carbon Dioxide 33 mmol/L (22-30); Chloride 96 mmol/L (98-107); Estimated Creatinine Clearance 86 ml/min; Glucose 107 mg/dl (70-99); Potassium 4.1 mmol/L (3.5-5.1); Sodium 138 mmol/L (135-145); eGFR > 60.00
--- NOTE | 2025-04-10 10:30 | W.PN.VS ---
Today's Communication / Plan
-
Patient seen and examined at bedside with Dr. Rodolfo Peterson M.D., below plan reviewed with attending.
Assessment/Plan
-
Assessment: 71-year-old female with right medial ankle hematoma
Plan:
Pressure dressing via Sahil wrap reapplied, with fever continue observation for an additional day, if hematoma remains unchanged or increase in size we will likely washout and do incision and drainage tomorrow
N.p.o. at midnight in case of surgery
Continue to hold oral anticoagulation
Subjective Data
-
Date of Service: April 10, 2025
Patient seen and evaluated, reports continued pain to right medial ankle hematoma. Denies changes to motor and sensation.
Objective Data
-
Vital Signs
Temp Pulse Resp BP Pulse Ox
98.3 F 66 12 122/53 94
04/10/25 07:00 04/10/25 08:27 04/10/25 07:00 04/10/25 08:27 04/10/25 08:45
Intake and Output
04/09/25 04/10/25 04/11/25
06:59 06:59 06:59
Intake Total 960 / 960 480 / 480
Output Total 400 / 400 200 / 200 700 / 700
Balance 560 / 560 280 / 280 -700 / -700
Intake:
Oral fluids 960 / 960 480 / 480
Output:
Urine, Voided 400 / 400 200 / 200 700 / 700
Other:
How many times incontinent 1
SMALL amount urine
How many times incontinent 1
MODERATE amount urine
How many times incontinent 4
SATURATED amount urine
Number of approximated SMALL 1
amounts of urine
Lab Results
04/10/25 07:17
04/10/25 07:17
Calcium 9.0 mg/dl (8.4-10.2) 04/10/25 07:17
Total Bilirubin 0.8 mg/dl (0.2-1.3) 04/08/25 14:09
AST 17 U/L (14-36) 04/08/25 14:09
ALT < 10 U/L (0-35) 04/08/25 14:09
Alkaline Phosphatase 98 U/L (38-126) 04/08/25 14:09
Total Protein 8.0 g/dl (6.3-8.2) 04/08/25 14:09
Albumin 5.0 g/dl (3.5-5.0) 04/08/25 14:09
Physical Exam
-
No apparent distress, resting bed comfortably
No dyspnea on room air
Right ankle hematoma continues to remain soft, with intact motor and sensation
Right foot warm
[2025-04-10 11:00] VITALS: BP 137/47
[2025-04-10] MEDS: PAXIL 40 MG PO (11:10)
[2025-04-10] MEDS: KCL 40 MEQ PO ×2 (11:10→20:39)
--- NOTE | 2025-04-10 11:12 | CM ---
Chart reviewed. Care ongoing. Patient is a 71-year-old female with right medial ankle hematoma
Per vasc surg, NPO at midnight in case of surgery
Met w/ patient and daughter bedside, reviewed therapy recs of home PT/OT. Patient is current w/ [facility]. Daughter, Navya, stated OT will follow as well. Navya asking for VN as well, however, [facility] does not have nursing. made Navya aware that patient
cannot have two agencies providing skilled services as her insurance would be billing twice for this. Navya understood this and stated depending on if patient will need surgery she'll need VN and then she can decide on another home care provider
since [facility] does not have VN service.
Plan: Home w/ services
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
--- NOTE | 2025-04-10 14:52 | PN.CDI ---
CDI
- -
CDI:
Physician Documentation Request
Admit Date: 04/08/25 21:35
Dear Doctor Jaciel,
Please review the following and provide your response in the progress notes.
Clinical Indicators:
Pt admitted for Right ankle level hematoma.
04/09 WOC RN: ' L buttock stage 1 PI vs MASD'
Physician documentation of the type and location of wounds is required for compliant documentation. Based on the above clinical findings and your assessment, please provide the following in your progress note:
1. Location of the ulcer/wound, including laterality.
2. Type (etiology) of ulcer/wound:
Left buttock stage 1 pressure injury POA
Left buttock non-pressure injury POA
Other
Use of terms such as suspected, likely, concern for, or probable (associated with a specific diagnosis that is being evaluated, monitored, or treated as if it exists) are acceptable and can be coded in the inpatient setting, when documented at the
time of discharge.
Thank you,
Shima Silvestre RN, BSN
CDI Specialist
[facility]
Please use your independent medical judgment in providing your response.
*Source: National Pressure Ulcer Advisory Panel (NPUAP)
--- NOTE | 2025-04-10 14:56 | PN.CDI ---
CDI
- -
CDI:
Physician Documentation Request
Admit Date: 04/08/25 21:35
Dear Doctor Jaciel,
Please review the following and provide your response in the progress notes.
Clinical Indicators:
Pt admitted for Right ankle level hematoma.
04/10 Progress Note: ' CT RLE w IV contrast
small hematoma of the medial distal right lower extremity with associated small focus of active bleeding..
- Eliquis on hold due to bleed'
Please clarify the relationship between these conditions:
Yes, Hematoma is related to/associated with/exacerbated by Eliquis.
No, Hematoma is not related to/associated with/exacerbated by Eliquis.
Other
Use of terms such as suspected, likely, concern for, or probable (associated with a specific diagnosis that is being evaluated, monitored, or treated as if it exists) are acceptable and can be coded in the inpatient setting, when documented at the
time of discharge.
Thank you,
Shima Silvestre RN, BSN
CDI Specialist
[place] [facility]
Please use your independent medical judgment in providing your response.
[2025-04-10 15:00] VITALS: BP 111/45
[2025-04-10] MEDS: PROTONIX 40 MG PO (15:29)
[2025-04-10 19:04] VITALS: BP 106/45
[2025-04-10] MEDS: ALDACTONE 25 MG PO (20:43)
[2025-04-10] MEDS: DEMADEX 40 MG PO (20:46)
[2025-04-10] MEDS: NON-FORMULARY ITEM 1 MG PO (21:47)
[2025-04-10 23:38] VITALS: BP 103/61
[2025-04-11] VITALS (9 sets, daily range): BP systolic 97–128; BP diastolic 49–76; PULSE 71–74; O2SAT 96; BMI 29.0
[2025-04-11] MEDS: SINEMET 25-100 2 TABLET PO ×6 (00:13→23:49)
[2025-04-11] MEDS: KLONOPIN 2 MG PO ×2 (00:14→23:48)
[2025-04-11] MEDS: ANCEF 10 IV ×3 (04:47→20:06)
[2025-04-11] MEDS: SYNTHROID 100 MCG PO (04:48)
--- NOTE | 2025-04-11 06:18 | PTCARENOTE ---
Pt aaox3 able to make her needs known, forgetful at times only. Pt NPO from [place] for possible OR. Sheets were changed, pt was provided with 1 set of CHG wipes. Plan of care continued on pt.
[2025-04-11] MEDS: DEMADEX 80 MG PO (08:00)
[2025-04-11] MEDS: ROXICODONE 5 MG PO ×4 (08:00→22:10)
[2025-04-11] MEDS: ALDACTONE 50 MG PO (08:01)
[2025-04-11] MEDS: LIPITOR 20 MG PO (08:01)
[2025-04-11] MEDS: TIKOSYN 250 MCG PO ×2 (08:01→20:01)
[2025-04-11] MEDS: NEURONTIN 300 MG PO ×3 (08:03→20:00)
[2025-04-11] MEDS: LOTRIMIN 1% CREAM 1 APPLIC TOPICAL ×2 (08:04→20:07)
--- NOTE | 2025-04-11 08:18 | W.PN.VS ---
Addendum entered and electronically signed by Rodolfo Peterson MD 04/11/25 16:36:
Seen and examined with [employer] SERVICE ADVISER earlier this a.m. This is a late entry. Agree with findings as noted below. Small stable hematoma distal calf/ankle right lower extremity. No skin changes. No evidence of neurovascular compression. No absolute
indication for evacuation at this point given stability and chronicity. Plan/as discussed and noted below.
Original Note:
Today's Communication / Plan
-
Patient seen and examined at bedside with Dr. Rodolfo Peterson M.D., below plan reviewed with attending.
Assessment/Plan
-
Assessment: 71-year-old female with right medial ankle hematoma
Plan:
No indication for surgical intervention given hematoma is unchanged in size
Can have diet
Can continue compression with Sahil wrap if patient finds comfortable, would place daily and remove at night
From a vascular surgical perspective can restart oral anticoagulation
Plan relayed to hospitalist
Subjective Data
-
Date of Service: April 11, 2025
Patient seen and examined at bedside, reports continued tenderness at right ankle hematoma but endorses it is unchanged or slightly improved. Reports it is unchanged in size.
Objective Data
-
Vital Signs
Temp Pulse Resp BP Pulse Ox
98.0 F 66 14 127/57 95
04/11/25 07:59 04/11/25 08:00 04/11/25 07:59 04/11/25 08:00 04/11/25 08:17
Intake and Output
04/10/25 04/11/25 04/12/25
06:59 06:59 06:59
Intake Total 480 / 480 720 / 720
Output Total 200 / 200 900 / 1600 700 / 700
Balance 280 / 280 -180 / -880 -700 / -700
Intake:
Oral fluids 480 / 480 720 / 720
Output:
Urine, Voided 200 / 200 900 / 1600 700 / 700
Other:
How many times incontinent 1
SMALL amount urine
How many times incontinent 1 1
MODERATE amount urine
How many times incontinent 4 4
SATURATED amount urine
Number of approximated SMALL 1
amounts of urine
Number of approximated MODERATE 1
amounts of urine
Calcium 9.0 mg/dl (8.4-10.2) 04/10/25 07:17
Total Bilirubin 0.8 mg/dl (0.2-1.3) 04/08/25 14:09
AST 17 U/L (14-36) 04/08/25 14:09
ALT < 10 U/L (0-35) 04/08/25 14:09
Alkaline Phosphatase 98 U/L (38-126) 04/08/25 14:09
Total Protein 8.0 g/dl (6.3-8.2) 04/08/25 14:09
Albumin 5.0 g/dl (3.5-5.0) 04/08/25 14:09
Physical Exam
-
No apparent distress, resting bed comfortably
No dyspnea on room air
Right ankle hematoma continues to remain soft, with intact motor and sensation, unchanged in size from prior day exam
Right foot warm
[2025-04-11 09:30] LABS: Hematocrit 36.5 % (37.0-47.0); Hemoglobin 11.9 g/dL (12.0-16.0); Mean Corp Hgb Conc. 32.6 g/dL (33.0-37.0); Mean Corpuscular Volume 91.9 fL (81.0-99.0); Platelet Count 283 10^3/uL (130-400); Red Cell Dist. Width 12.1 % (11.5-14.5)
[2025-04-11 10:34] LABS: Blood Urea Nitrogen 16 mg/dl (7-17); Calcium 9.2 mg/dl (8.4-10.2); Carbon Dioxide 36 mmol/L (22-30); Chloride 93 mmol/L (98-107); Estimated Creatinine Clearance 74 ml/min; Glucose 115 mg/dl (70-99); Potassium 4.1 mmol/L (3.5-5.1); Sodium 136 mmol/L (135-145); eGFR > 60.00
[2025-04-11] MEDS: PAXIL 40 MG PO (11:29)
[2025-04-11] MEDS: KCL 40 MEQ PO ×2 (11:30→20:00)
--- NOTE | 2025-04-11 14:32 | CM ---
Addendum entered by Guerline Bowden 04/11/25 15:14:
CM will fax referral to Che at [facility] referral [phone]/ call [phone]. When accepted CM requested Che to email CM, if not documented, please call above number to confirm.
Original Note:
Patient seen at bedside with daughter [facility]. Patient completed IMM with daughter and signed form placed on chart. Patient daughter requested referral to [facility] if they were still working with [facility] therapy and if not she would like
VN. CM will send referrals and plan is for patient to go home tomorrow with daughter and therapy to follow up. CM will continue to follow for discharge planning needs.
Plan; referral for home health; [facility] vs [facility]
--- NOTE | 2025-04-11 15:07 | W.PN.HOSP.TC ---
Addendum entered and electronically signed by Luis Grissom MD 04/12/25 11:02:
Add to diagnosis list:
Yes, Hematoma is related to/associated with/exacerbated by Eliquis.
Left buttock stage I Pressure injury - present on admission
Original Note:
Today's Communication/Plan
-
monitor overnight
possible d/c tomorrow
Assessment / Plan
Assessment / Plan
CT RLE w IV contrast
mall hematoma of the medial distal right lower extremity with associated small focus of active bleeding..
Mild edematous soft tissue change of the entire imaged right lower extremity.
Mild dorsal midfoot osteoarthritis.

1. Right ankle level hematoma
Fall from motorized wheelchair
- Ankle x-ray with impression No acute fracture or dislocation. The alignment at the ankle mortise is maintained. Plantar calcaneal enthesophyte. Soft tissue swelling about the ankle.
- CT RLE -official read pending although patient dextroposition in right ankle hematoma. Images reviewed
- Patient got last Eliquis dose from 916 AM, hold further dosing
- No signs of compartment syndrome.
- Vascular surgeon followed, no need of washout/OR
2. Paroxysmal atrial fibrillation
History of cardioversion
- On Tikosyn. QTc < 500ms. EKG reviewed.
- Eliquis on hold due to bleed
3. History of Parkinson's disease
- Follows up with neurologist at [facility]
- Uses motorized wheelchair to get around
- Continue home regimen of Sinemet/Paxil/Klonopin
4. Chronic diastolic congestive heart failure
- Echocardiogram in September 18 showing EF 55 to 60%. Bioprosthetic mitral valve.
- Maintain on home dose of torsemide/Aldactone
- Monitor for signs of volume overload/HF exacerbation
5. Hypothyroidism
-levothyroxine continued
6. HLD
-statin continued
7. GERD
-PPI continued
DVT ppx - hold eliquis
Full code
04/09 Care plan discussed with patient daughter at bedside
Anticipated Discharge: 24 - 48 hours
Subjective/Interval History
-
Date of Service: April 11, 2025
No issues overnight
right leg/ankle pain is better
Objective Data
-
Labs:
Laboratory Results
04/11/25
07:54
WBC 8.7
Hgb 11.9 L
Hct 36.5 L
Plt Count 283
Sodium 136
Potassium 4.1
Chloride 93 L
Carbon Dioxide 36 H
BUN 16
Creatinine 0.7
Glucose 115 H
Calcium 9.2
Vital Signs:
Vital Signs
Temp Pulse Resp BP Pulse Ox
98.4 F 80 14 97/56 96
04/11/25 15:00 04/11/25 15:00 04/11/25 15:00 04/11/25 15:00 04/11/25 15:00
I&O
04/10/25 04/11/25 04/12/25
06:59 06:59 06:59
Intake Total 480 / 480 720 / 720
Output Total 200 / 200 900 / 1600 700 / 700
Balance 280 / 280 -180 / -880 -700 / -700
Review of Systems
-
Respiratory: Reports No Symptoms
Cardiac: Reports No Symptoms
Abdomen/GI: Reports No Symptoms
Physical Exam
-
General: No Apparent Distress
HEENT: Negative Oxygen
GI: Soft, Nontender and Nondistended
Musculoskeletal: Edema, Right Upper Extrem (wrapped in SHEILA bandage)
Neuro: Awake, Alert, Oriented and Tremors
Psych: Calm
[2025-04-11] MEDS: PROTONIX 40 MG PO (16:24)
[2025-04-11] MEDS: ALDACTONE 25 MG PO (19:59)
[2025-04-11] MEDS: DEMADEX 40 MG PO (20:00)
[2025-04-11] MEDS: NON-FORMULARY ITEM 1 MG PO (22:09)
[2025-04-12 03:26] VITALS: BP 121/51
[2025-04-12] MEDS: ANCEF 10 IV (03:43)
[2025-04-12] MEDS: SYNTHROID 100 MCG PO (05:47)
[2025-04-12 06:00] VITALS: BMI 29.5
[2025-04-12] MEDS: DEMADEX 80 MG PO (07:32)
[2025-04-12] MEDS: ALDACTONE 50 MG PO (07:32)
[2025-04-12] MEDS: TIKOSYN 250 MCG PO (07:32)
[2025-04-12] MEDS: NEURONTIN 300 MG PO (07:32)
[2025-04-12] MEDS: LIPITOR 20 MG PO (07:33)
[2025-04-12] MEDS: ROXICODONE PO (07:35)
[2025-04-12] MEDS: LOTRIMIN 1% CREAM 1 APPLIC TOPICAL (07:35)
[2025-04-12] MEDS: SINEMET 25-100 2 TABLET PO ×2 (07:49→11:23)
[2025-04-12 08:03] VITALS: BP 125/57
[2025-04-12 08:32] LABS: Hematocrit 35.7 % (37.0-47.0); Hemoglobin 11.7 g/dL (12.0-16.0); Mean Corp Hgb Conc. 32.8 g/dL (33.0-37.0); Mean Corpuscular Volume 93.9 fL (81.0-99.0); Platelet Count 281 10^3/uL (130-400); Red Cell Dist. Width 12.1 % (11.5-14.5)
[2025-04-12 09:12] LABS: Blood Urea Nitrogen 15 mg/dl (7-17); Calcium 8.9 mg/dl (8.4-10.2); Carbon Dioxide 35 mmol/L (22-30); Chloride 96 mmol/L (98-107); Estimated Creatinine Clearance 87 ml/min; Glucose 126 mg/dl (70-99); Potassium 4.0 mmol/L (3.5-5.1); Sodium 136 mmol/L (135-145); eGFR > 60.00
--- NOTE | 2025-04-12 11:12 | CM ---
Addendum entered by Asia Gregorio 04/12/25 11:25:
Patient's daughter will provide transport home; home has a Ramp to enter; patient able to stand and pivot to WC
Original Note:
Met with patient at bedside and spoke with patient's daughter, Navya Gomez, via phone # [phone] to discuss discharge plan. Daughter is primary contact to coordinate home visits.
Extruder Operator spoke via phone w/ Che from [facility]. Che will call patient's daughter and explain that [facility] will provide VN service; and the agency's Rehab partner, [facility], will provide PT/OT services
Plan: Discharge to home today; with home health services as noted above
[facility]
[2025-04-12] MEDS: KCL 40 MEQ PO (11:23)
[2025-04-12] MEDS: PAXIL 40 MG PO (11:23)
[2025-04-12 11:45] VITALS: BP 127/54
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
== END 2025-04-12 12:28 | disposition home health service (06) | DRG 605 ==
LOC: 4 EAST ACU 21:35
PROVIDERS: Emergency Medicine; Registered Nurse; Specialist Research Data Abstracter/Coder; ADMITTING PHYSICIAN Internal Medicine; ATTENDING PHYSICIAN Hospitalist; CONSULT PHYSICIAN Surgery Vascular Surgery; EMERGENCY PHYSICIAN Emergency Medicine; FAMILY PHYSICIAN Nurse Practitioner Primary Care
DX: S90.01XA Contusion of right ankle, initial encounter (principal); D68.32 Hemorrhagic disorder due to extrinsic circulating anticoagulants; I50.32 Chronic diastolic (congestive) heart failure; F11.20 Opioid dependence, uncomplicated; W19.XXXA Unspecified fall, initial encounter; I48.0 Paroxysmal atrial fibrillation; G20.A1 Parkinson's disease without dyskinesia, without mention of fluctuations; E03.9 Hypothyroidism, unspecified; K21.9 Gastro-esophageal reflux disease without esophagitis; I11.0 Hypertensive heart disease with heart failure; Z79.01 Long term (current) use of anticoagulants; T45.515A Adverse effect of anticoagulants, initial encounter; Z79.890 Hormone replacement therapy; Z86.73 Personal history of transient ischemic attack (TIA), and cerebral infarction without residual deficits; J44.9 Chronic obstructive pulmonary disease, unspecified; Z90.710 Acquired absence of both cervix and uterus; Z95.2 Presence of prosthetic heart valve; Z87.891 Personal history of nicotine dependence; Z88.6 Allergy status to analgesic agent; Z91.040 Latex allergy status; Z88.2 Allergy status to sulfonamides; D50.9 Iron deficiency anemia, unspecified; E78.00 Pure hypercholesterolemia, unspecified; F41.9 Anxiety disorder, unspecified; G25.81 Restless legs syndrome; G40.909 Epilepsy, unspecified, not intractable, without status epilepticus; G62.9 Polyneuropathy, unspecified; G89.4 Chronic pain syndrome; L89.321 Pressure ulcer of left buttock, stage 1; Z91.018 Allergy to other foods; Z91.048 Other nonmedicinal substance allergy status; Z79.899 Other long term (current) drug therapy
CPT/HCPCS: 73610; 73701; 80048; 80053; 85025; 85027; 87040; 93005; 96374; 97163; 97167; 97530; 97535; 99285; Q9967